=== PATIENT | female | born 1945 | race Hispanic/Latino ===

== ENCOUNTER 2017-03-29 23:32 | Emergency (ER) | payer MEDICARE ==
[2017-03-30] MEDS ORDERED: BOOSTRIX IM ONE (00:10)
--- NOTE | 2017-03-30 00:24 | Emergency Department Report ---
ED Fall HPI - General Chief Complaint: Fall Stated Complaint: FALL Time Seen by Provider: 03/30/17 00:12 Source: patient, family, EMS Mode of arrival: Stretcher - History of Present Illness Initial Comments: Patient is 72 years old female with history of diabetes and neuropathy she presented to the ER for an evaluation of a fall that happened 3 hours ago. The patient stated that she lost her balance and fell backward and hit her head. Patient denied any loss of consciousness, no focal weakness, numbness, tingling sensation, no bowel or bladder incontinence. Patient stated that for the last few weeks she has been having generalized weakness and fatigue and lower extremity swelling. Patient denied any chest pain or shortness of breath. 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 Witnessed: yes, by family Place Fall Occurred: home Loss of Consciousness: none Prolonged Down Time?: no Symptoms Prior to Fall: none Location: head, neck Context: tripped/slipped Associated Symptoms: denies: headache, neck pain, numbness, weakness, chest paint, shortness of breath, abdominal pain, hematuria, unable to walk, lightheaded, vertigo, confusion - Related Data Allergies Allergy/AdvReac Type Severity Reaction Status Date / Time acetaminophen [From Tylenol] Allergy Unknown Unverified 03/29/17 23:48 codeine Allergy Headache Unverified 03/29/17 23:48 cortisone [Cortisone] Allergy Unknown Unverified 03/29/17 23:48 Penicillins Allergy Hives Unverified 03/29/17 23:48 ED Review of Systems ROS: Stated complaint: FALL Other details as noted in HPI Comment: All other systems reviewed and negative Constitutional: denies: chills, fever Respiratory: denies: cough, shortness of breath, SOB with exertion Cardiovascular: denies: chest pain, palpitations Gastrointestinal: denies: abdominal pain, nausea, vomiting, diarrhea, constipation Genitourinary: denies: urgency Neurological: denies: headache, weakness, numbness, paresthesias, confusion ED Past Medical Hx - Past Medical History Previous Medical History?: Yes Hx Diabetes: Yes Additional medical history: CAD, tachycardia, scoliosis, hernia, diverticulitis , gallstones, neuropathy, - Surgical History Past Surgical History?: No - Social History Smoking Status: Never Smoker Substance Use Type: Prescribed ED Physical Exam - General Limitations: Physical Limitation General appearance: alert, in no apparent distress - Head Head exam: Present: other (0.3 cm laceration to the scalp.) - ENT ENT exam: Present: normal exam, normal orophraynx, mucous membranes moist - Neck Neck exam: Present: normal inspection - Respiratory Respiratory exam: Present: normal lung sounds bilaterally. Absent: respiratory distress, wheezes, rales, rhonchi, stridor, chest wall tenderness, decreased breath sounds, prolonged expiratory - Cardiovascular Cardiovascular Exam: Present: regular rate, normal rhythm, normal heart sounds - GI/Abdominal GI/Abdominal exam: Present: soft, normal bowel sounds. Absent: distended, tenderness, guarding, rebound, rigid, organomegaly, mass, bruit, pulsatile mass , hernia - Extremities Exam Extremities exam: Present: normal inspection, full ROM, normal capillary refill - Back Exam Back exam: Present: normal inspection, full ROM. Absent: tenderness, CVA tenderness (R), CVA tenderness (L) - Neurological Exam Neurological exam: Present: alert, oriented X3, CN II-XII intact, normal gait, reflexes normal. Absent: motor sensory deficit - Skin Skin exam: Present: warm, dry, normal color ED Course Vital Signs 03/29/17 03/29/17 03/29/17 23:38 23:40 23:46 Temperature Pulse Rate 101 H 110 H 98 H Respiratory 13 18 14 Rate Blood Pressure 130/64 Blood Pressure [Left] O2 Sat by Pulse 96 Oximetry 03/29/17 03/29/17 03/29/17 23:49 23:50 23:56 Temperature 97.9 F Pulse Rate 102 H 95 H 98 H Respiratory 20 13 Rate Blood Pressure 130/60 130/64 130/64 Blood Pressure 130/60 [Left] O2 Sat by Pulse 96 97 98 Oximetry 03/30/17 03/30/17 03/30/17 00:00 00:06 00:10 Temperature Pulse Rate 92 H 93 H 92 H Respiratory 15 15 17 Rate Blood Pressure 123/54 123/54 123/54 Blood Pressure [Left] O2 Sat by Pulse 96 96 95 Oximetry 03/30/17 03/30/17 03/30/17 00:11 00:16 00:20 Temperature Pulse Rate 93 H 95 H Respiratory 20 12 17 Rate Blood Pressure 123/54 123/54 Blood Pressure [Left] O2 Sat by Pulse 96 98 96 Oximetry - Reevaluation(s) Reevaluation #1: 03/30/17 04:04 Patient stated that she is feeling much better. I recommended hospital admission for the patient but patient denied she stated that she wanted to spend [place] with her family and she would rather just take the antibiotic at home and drink more fluids. ED Medical Decision Making - Lab Data Result diagrams: 03/30/17 00:13 03/30/17 00:13 - Radiology Data Radiology results: report reviewed Referring Physician: JOSE MIGUEL MCKENZIE Patient Name: CONCHA JOSE Date of : 1945 Sex: Female Report Date: 2017-03-29 Report Status: [place] [address] Cat Scan Report Signed Patient: CONCHA JOSE MR#: [id number] : 1945 Acct:[id number] Age/Sex: 72 / F ADM Date: 03/29/17 Loc: ED Attending Dr: Ordering Physician: JOSE MIGUEL MCKENZIE DO Date of Service: 03/30/17 Procedure(s): CT head/brain wo con Accession Number(s): [id number] cc: JOSE MIGUEL MCKENZIE DO FINAL REPORT EXAM: CT HEAD/BRAIN WO CON HISTORY: Fall TECHNIQUE: Routine axial imaging was obtained of the brain without IV contrast. FINDINGS: There is age related volume loss. There is no evidence of acute stroke or hemorrhage. The ventricular system is appropriate in size and is symmetric. The visualized sinuses are clear. The mastoid air cells are well pneumatized. There is no evidence of skull fracture or scalp injury. IMPRESSION: Age related atrophy. No evidence of acute stroke or hemorrhage. Transcribed By: RB Dictated By: SUMIT GUNDERSON MD Electronically Authenticated By: SUMIT GUNDERSON MD Signed Date/Time: 03/29/172108 DD/ 08 TD/TT: 03/29/172108 Referring Physician: JOSE MIGUEL MCKENZIE Patient Name: CONCHA JOSE Date of : 1945 Sex: Female Report Date: 2017-03-29 Report Status: Finalized Findings [facility] [address] [place] [address] Cat Scan Report Signed Patient: CONCHA JOSE MR#: [id number] : 1945 Acct:[id number] Age/Sex: 72 / F ADM Date: 03/29/17 Loc: ED Attending Dr: Ordering Physician: JOSE MIGUEL MCKENZIE DO Date of Service: 03/30/17 Procedure(s): CT cervical spine wo con Accession Number(s): [id number] cc: JOSE MIGUEL MCKENZIE DO FINAL REPORT EXAM: CT CERVICAL SPINE WO CON HISTORY: Fall TECHNIQUE: Routine axial imaging was obtained of the cervical spine without IV contrast with sagittal and coronal reconstructions. FINDINGS: There is multilevel moderate to severe disc degeneration with endplate spurring throughout the cervical spine. There is no evidence of fracture. There is extensive facet arthropathy changes bilaterally with varying degrees of neural foraminal impingement. There is no evidence of fracture. The prevertebral soft tissues appear normal. There is severe arthritic changes of the C1-C2 articulation. IMPRESSION: Extensive arthritic changes as described. No evidence of acute injury. Transcribed By: RB Dictated By: SUMIT GUNDERSON MD Electronically Authenticated By: SUMIT GUNDERSON MD Signed Date/Time: 03/29/172111 DD/ 11 TD/TT: 03/29/172111 Critical care attestation.: If time is entered above; I have spent that time in minutes in the direct care of this critically ill patient, excluding procedure time. ED Disposition Clinical Impression: Fall, Dehydration, Head injury, Boil, buttock Disposition: DC-01 TO HOME OR SELFCARE Is pt being admited?: No Condition: Stable Instructions: Fall Prevention (ED), Minor Head Injury (ED), Cellulitis (ED)
[2017-03-30 00:37] LABS: Hematocrit 39.3 % (30.3-42.9); Hemoglobin 12.8 gm/dl (10.1-14.3); Mean Corpuscular HGB Conc 33 % (30-34); Mean Corpuscular Hemoglobin 29 pg (28-32); Mean Corpuscular Volume 90 fl (79-97); Platelet Count 358 K/mm3 (140-440); Red Blood Count 4.36 M/mm3 (3.65-5.03); White Blood Count 17.3 K/mm3 (4.5-11.0)
[2017-03-30] MEDS ORDERED: LEVAQUIN 500MG/100ML 500 MG/100 ML BAG IV ONE (00:57)
[2017-03-30 00:59] LABS: Anion Gap 23 mmol/L; BUN/Creatinine Ratio 32; Blood Urea Nitrogen 16 mg/dL (7-17); Calcium 9.5 mg/dL (8.4-10.2); Carbon Dioxide 24 mmol/L (22-30); Chloride 96.6 mmol/L (98-107); Creatine Kinase 672 units/L (30-135); Glucose 117 mg/dL (65-100); Potassium 3.8 mmol/L (3.6-5.0); Sodium 140 mmol/L (137-145)
--- NOTE | 2017-03-30 01:00 | XRay Report ---
FINAL REPORT EXAM: XR CHEST 1V AP HISTORY: post fall chest pain TECHNIQUE: A portable upright view of the chest was submitted. FINDINGS: The heart size and mediastinum appear normal. The lungs are clear. Pleural fluid is not seen. The bones and soft tissues do not show any acute changes. IMPRESSION: No active chest disease.
--- NOTE | 2017-03-30 01:02 | XRay Report ---
FINAL REPORT EXAM: XR PELVIS 1-2V HISTORY: post fall pelvic pain TECHNIQUE: Two AP views of the pelvis were submitted. FINDINGS: There is severe arthritic changes of both hip joints. The bony pelvic ring appears intact. The SI joints appear normal. There is multilevel disc degeneration in the lumbar spine. The soft tissues are unremarkable. IMPRESSION: Severe arthritic changes of both hip joints. No evidence of acute injury. Multilevel disc degeneration in the lumbar spine.
--- NOTE | 2017-03-30 01:12 | Cat Scan Report ---
FINAL REPORT EXAM: CT HEAD/BRAIN WO CON HISTORY: Fall TECHNIQUE: Routine axial imaging was obtained of the brain without IV contrast. FINDINGS: There is age related volume loss. There is no evidence of acute stroke or hemorrhage. The ventricular system is appropriate in size and is symmetric. The visualized sinuses are clear. The mastoid air cells are well pneumatized. There is no evidence of skull fracture or scalp injury. IMPRESSION: Age related atrophy. No evidence of acute stroke or hemorrhage.
--- NOTE | 2017-03-30 01:16 | Cat Scan Report ---
FINAL REPORT EXAM: CT CERVICAL SPINE WO CON HISTORY: Fall TECHNIQUE: Routine axial imaging was obtained of the cervical spine without IV contrast with sagittal and coronal reconstructions. FINDINGS: There is multilevel moderate to severe disc degeneration with endplate spurring throughout the cervical spine. There is no evidence of fracture. There is extensive facet arthropathy changes bilaterally with varying degrees of neural foraminal impingement. There is no evidence of fracture. The prevertebral soft tissues appear normal. There is severe arthritic changes of the C1-C2 articulation. IMPRESSION: Extensive arthritic changes as described. No evidence of acute injury.
[2017-03-30 02:40] LABS: Basophils % (Manual) 0 % (0.0-1.8); Blastocytes % (Manual) 0 %; Diff Status Complete; Eosinophils % (Manual) 0 % (0.0-4.3); Platelet Estimate Consistent w Auto; RBC Morphology Normal
[2017-03-30 03:50] LABS: Bilirubin,Urine NEG (Negative); Blood,Urine SM (Negative); Ketones,Urine 20 mg/dL (Negative); Leukocyte Esterase,Urine NEG (Negative); Mucus,Urine FEW /HPF; Nitrite,Urine NEG (Negative); Protein,Urine <15 mg/dL mg/dL (Negative); Urobilinogen,Urine < 2.0 mg/dL (<2.0)
[2017-03-30] MEDS ORDERED: NACL 0.9% 1000 ML 1,000 ML IV ONE (03:59)
[2017-03-30 06:08] VITALS: BP 118/55
== END 2017-03-30 06:10 | disposition home or self-care (01) ==
LOC: ED 23:32
DX: S01.01XA Laceration without foreign body of scalp, initial encounter (principal); E86.0 Dehydration; E11.9 Type 2 diabetes mellitus without complications; Z88.6 Allergy status to analgesic agent; Z88.0 Allergy status to penicillin; Z88.8 Allergy status to other drugs, medicaments and biological substances; W18.30XA Fall on same level, unspecified, initial encounter; Y93.89 Activity, other specified; Y92.89 Other specified places as the place of occurrence of the external cause; Y99.8 Other external cause status
CPT/HCPCS: 36415; 70450; 71010; 72125; 72170; 80048; 81001; 82550; 83880; 84484; 85007; 85025; 87040; 90471; 90715; 96361; 96365; 99285; J1956; J7030

== ENCOUNTER 2017-04-07 17:53 | Inpatient (IN) | payer MEDICARE, MEDICAID ==
[2017-04-07 19:07] LABS: Hematocrit 35.7 % (30.3-42.9); Hemoglobin 12.1 gm/dl (10.1-14.3); Mean Corpuscular HGB Conc 34 % (30-34); Mean Corpuscular Hemoglobin 30 pg (28-32); Mean Corpuscular Volume 90 fl (79-97); Platelet Count 424 K/mm3 (140-440); Red Blood Count 3.98 M/mm3 (3.65-5.03); Red Cell Distribution Width 14.2 % (13.2-15.2)
[2017-04-07 19:22] LABS: INR 1.1 (0.87-1.13); Partial Thromboplastin Time 30.2 Sec. (24.2-36.6)
[2017-04-07 19:27] LABS: Alanine Aminotransferase 11 units/L (7-56); Albumin 3.7 g/dL (3.9-5); BUN/Creatinine Ratio 24; Blood Urea Nitrogen 12 mg/dL (7-17); Calcium 9.1 mg/dL (8.4-10.2); Hemolysis Index 6
[2017-04-07] MEDS ORDERED: PERCOCET 5/325 ONE (23:03)
[2017-04-07] MEDS: PERCOCET 5/325 PO PRN (23:14)
[2017-04-08 00:14] LABS: Bacteria,Urine 1+ /HPF (Negative); Bilirubin,Urine NEG (Negative); Blood,Urine LG (Negative); Color,Urine Yellow (Yellow); Mucus,Urine FEW /HPF; Nitrite,Urine NEG (Negative); Protein,Urine <15 mg/dL mg/dL (Negative); Urobilinogen,Urine < 2.0 mg/dL (<2.0)
[2017-04-08] MEDS ORDERED: PERCOCET 5/325 PO ONE (07:38)
[2017-04-08] MEDS ORDERED: K-DUR PO ONE (07:38)
[2017-04-08 08:27] LABS: Magnesium 1.3 mg/dL (1.7-2.3)
--- NOTE | 2017-04-08 08:34 | Cat Scan Report ---
CT of the lumbar spine. History: Back and bilateral lower extremity pain and weakness. Findings: There is severe narrowing of all of the lumbar disc spaces with vacuum disc phenomenon seen at L2-3 and L3-4. The vertebral body heights are well-maintained. Extensive anterior and posterior hypertrophic changes are seen in multiple levels, most pronounced at L2-3, L3-4, and L5-S1. Coexistent disc complexes are seen at the lower 3 lumbar levels. There is severe bilateral facet joint arthropathy, most pronounced again at the lower 3 levels. Central canal stenosis and foraminal stenosis are seen at L4-5 and L5-S1. No acute findings are seen. There is no evidence of subluxation. Impression: Severe diffuse degenerative disc disease with multilevel posterior hypertrophic changes/disc complexes, facet joint arthropathy, and spinal stenosis at L4-5 and L5-S1. No acute findings are identified.
[2017-04-08] MEDS ORDERED: MAGNESIUM SULFATE 2GM/50ML 2 GM/50 ML BAG IV ONE (08:36)
--- NOTE | 2017-04-08 08:38 | Emergency Department Report ---
- General Chief complaint: Weakness Stated complaint: FALL/UNABLE TO WALK Time Seen by Provider: 04/08/17 07:02 Source: patient Mode of arrival: Wheelchair Limitations: No Limitations - History of Present Illness Initial comments: 72-year-old female with a previous medical history of diabetes, CAD, neuropathy , scoliosis, and arthritis presents with possible complaints of progressively worsening lower extremity weakness and frequent falls. Patient states both her legs have been painful from her hip down to her feet for several months and have worsened over the last 2 months. He has now gotten to the point where patient is unable to ambulate and experiencing frequent falls. [facility] [place] [facility] after a fall, generalized weakness, leg edema. Labs revealed a leukocytosis of 17,000 at that time and patient had a diagnosis of a buttock boil dehydration. Admission was recommended at that time the patient opted to go home with antibiotic prescription. Patient was given Levaquin, Suring, Lasix, and Zofran prescriptions. Patient was sent back to the ER by primary care doctor Cinda since patient has been unable to walk for a few days. DR larry requires to rule out DVT and CHF and does not feel patient can be worked up as an outpatient. At her baseline patient walks with a walker and she lives alone. No reports of fever, nausea, vomiting , or urinary incontinence Severity scale (0 -10): 8 - Related Data Previous Rx's Medication Instructions Recorded Last Taken Type Furosemide [Lasix] 20 mg PO DAILY #10 tablet 03/30/17 Unknown Rx HYDROcodone/APAP 5-325 [Suring 1 each PO Q6HR PRN #14 tablet 03/30/17 Unknown Rx 5/325] Levofloxacin [Levaquin TAB] 500 mg PO QDAY #7 tablet 03/30/17 Unknown Rx Ondansetron [Zofran Odt] 4 mg PO Q8HR PRN #14 tab.rapdis 03/30/17 Unknown Rx Allergies Allergy/AdvReac Type Severity Reaction Status Date / Time acetaminophen [From Tylenol] Allergy Unknown Unverified 03/29/17 23:48 codeine Allergy Headache Unverified 03/29/17 23:48 cortisone [Cortisone] Allergy Unknown Unverified 03/29/17 23:48 Penicillins Allergy Hives Unverified 03/29/17 23:48 ED Review of Systems ROS: Stated complaint: FALL/UNABLE TO WALK Other details as noted in HPI Comment: All other systems reviewed and negative Other: Constitutional: No fevers chills Eyes: No eye pain visual changes ENT: No ear pain or throat pain Neck: Denies pain Respiratory: Denies cough wheezing shortness of breath Cardiovascular: Denies chest pain, palpitations, syncope GI: Denies abdominal pain, nausea, vomiting, diarrhea : Denies dysuria Musculoskeletal: as per hpi Skin: Denies rash, lesions, erythema Neurologic: Denies headache, numbness Psychiatric: Denies suicidal ideation, hallucinations ED Past Medical Hx - Past Medical History Hx Diabetes: Yes Additional medical history: CAD, tachycardia, scoliosis, hernia, diverticulitis , gallstones, neuropathy, - Social History Smoking Status: Current Every Day Smoker Substance Use Type: None - Medications Home Medications: Home Medications Medication Instructions Recorded Confirmed Last Taken Type Furosemide [Lasix] 20 mg PO DAILY #10 tablet 03/30/17 Unknown Rx HYDROcodone/APAP 5-325 [Suring 1 each PO Q6HR PRN #14 tablet 03/30/17 Unknown Rx 5/325] Levofloxacin [Levaquin TAB] 500 mg PO QDAY #7 tablet 03/30/17 Unknown Rx Ondansetron [Zofran Odt] 4 mg PO Q8HR PRN #14 tab.rapdis 03/30/17 Unknown Rx ED Physical Exam - General Limitations: No Limitations - Other Other exam information: General: No limitations, patient is alert in no acute distress Head exam: Atraumatic, normocephalic Eyes exam: Normal appearance ENT: Moist mucous membrane, normal oropharynx Neck exam: Normal inspection, full range of motion, no meningismus nontender Respiratory exam: Clear to auscultation bilateral, no wheezes, rales, crackles Cardiovascular: Normal rate and rhythm, normal heart sounds Abdomen: Soft, nondistended, and nontender, with normal bowel sounds, no rebound, or guarding Extremity: No deformity. Pain with movement of lower extremities. Crepitus had left knee. Bilateral 2+ lower extremity edema Back: Normal Inspection, full range of motion, no tenderness Neurologic: Alert, oriented x3, cranial nerves intact, sensation grossly intact. Patient unable to lift either leg off the bed against gravity. Equal foot dorsiflexion. 5/5 upper extremity strength equal bilateral Psychiatric: normal affect, normal mood Skin: left medial buttock 1 cm superficial ulceration with surrounding erythema. No drainage ED Course Vital Signs 04/07/17 04/07/17 04/08/17 18:17 23:14 04:02 Temperature 98 F 98.0 F Pulse Rate 94 H 85 Respiratory 18 18 18 Rate Blood Pressure 137/62 129/47 O2 Sat by Pulse 98 98 Oximetry 04/08/17 04/08/17 04/08/17 05:09 05:15 05:30 Temperature Pulse Rate 81 76 Respiratory 14 13 Rate Blood Pressure 123/60 123/60 106/47 O2 Sat by Pulse Oximetry 04/08/17 04/08/17 04/08/17 05:45 06:00 06:15 Temperature Pulse Rate 79 78 88 Respiratory 15 17 12 Rate Blood Pressure 123/60 116/48 116/48 O2 Sat by Pulse Oximetry 04/08/17 04/08/17 04/08/17 06:30 06:45 06:50 Temperature Pulse Rate 80 87 Respiratory 15 14 16 Rate Blood Pressure 117/48 117/48 O2 Sat by Pulse 98 Oximetry 04/08/17 07:00 Temperature Pulse Rate 89 Respiratory 17 Rate Blood Pressure 137/60 O2 Sat by Pulse Oximetry - Reevaluation(s) Reevaluation #1: 04/08/17 08:52 Additional Percocet water for pain ED Medical Decision Making - Lab Data Result diagrams: 04/07/17 18:51 04/07/17 18:51 Lab Results 04/07/17 04/07/17 04/07/17 Range/Units 18:51 18:51 18:51 WBC 8.2 (4.5-11.0) K/mm3 RBC 3.98 (3.65-5.03) M/mm3 Hgb 12.1 (10.1-14.3) gm/dl Hct 35.7 (30.3-42.9) % MCV 90 (79-97) fl MCH 30 (28-32) pg MCHC 34 (30-34) % RDW 14.2 (13.2-15.2) % Plt Count 424 (140-440) K/mm3 PT 14.8 (12.2-14.9) Sec. INR 1.10 (0.87-1.13) APTT 30.2 (24.2-36.6) Sec. Sodium 140 (137-145) mmol/L Potassium 3.5 L (3.6-5.0) mmol/L Chloride 97.6 L (98-107) mmol/L Carbon Dioxide 26 (22-30) mmol/L Anion Gap 20 mmol/L BUN 12 (7-17) mg/dL Creatinine 0.5 L (0.7-1.2) mg/dL Estimated GFR > 60 ml/min BUN/Creatinine Ratio 24 % Glucose 109 H (65-100) mg/dL Calcium 9.1 (8.4-10.2) mg/dL Magnesium (1.7-2.3) mg/dL Total Bilirubin 0.40 (0.1-1.2) mg/dL AST 16 (5-40) units/L ALT 11 (7-56) units/L Alkaline Phosphatase 82 (35-129) units/L Total Creatine Kinase (30-135) units/L NT-Pro-B Natriuret Pep (0-900) pg/mL Total Protein 6.8 (6.3-8.2) g/dL Albumin 3.7 L (3.9-5) g/dL Albumin/Globulin Ratio 1.2 % TSH (0.270-4.200) mlU/mL Free T4 (0.76-1.46) ng/dL Urine Color (Yellow) Urine Turbidity (Clear) Urine pH (5.0-7.0) Ur Specific [place] (1.003-1.030) Urine Protein (Negative) mg/dL Urine Glucose (UA) (Negative) mg/dL Urine Ketones (Negative) mg/dL Urine Blood (Negative) Urine Nitrite (Negative) Urine Bilirubin (Negative) Urine Urobilinogen (<2.0) mg/dL Ur Leukocyte Esterase (Negative) Urine WBC (Auto) (0.0-6.0) /HPF Urine RBC (Auto) (0.0-6.0) /HPF U Epithel Cells (Auto) (0-13.0) /HPF Urine Bacteria (Auto) (Negative) /HPF Urine Mucus /HPF 04/07/17 04/07/17 04/08/17 Range/Units 18:51 23:44 07:51 WBC (4.5-11.0) K/mm3 RBC (3.65-5.03) M/mm3 Hgb (10.1-14.3) gm/dl Hct (30.3-42.9) % MCV (79-97) fl MCH (28-32) pg MCHC (30-34) % RDW (13.2-15.2) % Plt Count (140-440) K/mm3 PT (12.2-14.9) Sec. INR (0.87-1.13) APTT (24.2-36.6) Sec. Sodium (137-145) mmol/L Potassium (3.6-5.0) mmol/L Chloride (98-107) mmol/L Carbon Dioxide (22-30) mmol/L Anion Gap mmol/L BUN (7-17) mg/dL Creatinine (0.7-1.2) mg/dL Estimated GFR ml/min BUN/Creatinine Ratio % Glucose (65-100) mg/dL Calcium (8.4-10.2) mg/dL Magnesium 1.30 L (1.7-2.3) mg/dL Total Bilirubin (0.1-1.2) mg/dL AST (5-40) units/L ALT (7-56) units/L Alkaline Phosphatase (35-129) units/L Total Creatine Kinase 66 (30-135) units/L NT-Pro-B Natriuret Pep 53.91 (0-900) pg/mL Total Protein (6.3-8.2) g/dL Albumin (3.9-5) g/dL Albumin/Globulin Ratio % TSH (0.270-4.200) mlU/mL Free T4 (0.76-1.46) ng/dL Urine Color Yellow (Yellow) Urine Turbidity Clear (Clear) Urine pH 5.0 (5.0-7.0) Ur Specific [place] 1.013 (1.003-1.030) Urine Protein <15 mg/dl (Negative) mg/dL Urine Glucose (UA) Neg (Negative) mg/dL Urine Ketones Tr (Negative) mg/dL Urine Blood Lg (Negative) Urine Nitrite Neg (Negative) Urine Bilirubin Neg (Negative) Urine Urobilinogen < 2.0 (<2.0) mg/dL Ur Leukocyte Esterase Neg (Negative) Urine WBC (Auto) 3.0 (0.0-6.0) /HPF Urine RBC (Auto) 43.0 (0.0-6.0) /HPF U Epithel Cells (Auto) 1.0 (0-13.0) /HPF Urine Bacteria (Auto) 1+ (Negative) /HPF Urine Mucus Few /HPF 04/08/17 Range/Units 07:51 WBC (4.5-11.0) K/mm3 RBC (3.65-5.03) M/mm3 Hgb (10.1-14.3) gm/dl Hct (30.3-42.9) % MCV (79-97) fl MCH (28-32) pg MCHC (30-34) % RDW (13.2-15.2) % Plt Count (140-440) K/mm3 PT (12.2-14.9) Sec. INR (0.87-1.13) APTT (24.2-36.6) Sec. Sodium (137-145) mmol/L Potassium (3.6-5.0) mmol/L Chloride (98-107) mmol/L Carbon Dioxide (22-30) mmol/L Anion Gap mmol/L BUN (7-17) mg/dL Creatinine (0.7-1.2) mg/dL Estimated GFR ml/min BUN/Creatinine Ratio % Glucose (65-100) mg/dL Calcium (8.4-10.2) mg/dL Magnesium (1.7-2.3) mg/dL Total Bilirubin (0.1-1.2) mg/dL AST (5-40) units/L ALT (7-56) units/L Alkaline Phosphatase (35-129) units/L Total Creatine Kinase (30-135) units/L NT-Pro-B Natriuret Pep (0-900) pg/mL Total Protein (6.3-8.2) g/dL Albumin (3.9-5) g/dL Albumin/Globulin Ratio % TSH 0.767 (0.270-4.200) mlU/mL Free T4 1.62 H (0.76-1.46) ng/dL Urine Color (Yellow) Urine Turbidity (Clear) Urine pH (5.0-7.0) Ur Specific [place] (1.003-1.030) Urine Protein (Negative) mg/dL Urine Glucose (UA) (Negative) mg/dL Urine Ketones (Negative) mg/dL Urine Blood (Negative) Urine Nitrite (Negative) Urine Bilirubin (Negative) Urine Urobilinogen (<2.0) mg/dL Ur Leukocyte Esterase (Negative) Urine WBC (Auto) (0.0-6.0) /HPF Urine RBC (Auto) (0.0-6.0) /HPF U Epithel Cells (Auto) (0-13.0) /HPF Urine Bacteria (Auto) (Negative) /HPF Urine Mucus /HPF - Radiology Data Radiology results: report reviewed CT lumbar spine: Severe diffuse degenerative disc disease with multilevel posterior hypertrophic changes/disc complexes. Facet joint arthropathy and spinal stenosis at L4-5 and L5-S1. No acute findings are identified Doppler bilateral extremities: Negative for DVT - Medical Decision Making Potassium, Percocet, and IV magnesium ordered in the ED Patient lives she has a left buttock cellulitis has been on Levaquin. pt states she accidentally cut the skin with her nail. No leukocytosis, fever, or signs of sepsis Bactrim ordered for cellulitis - Differential Diagnosis arthritis, neuropathy, radiculopathy, infection, anemia Critical Care Time: No Critical care attestation.: If time is entered above; I have spent that time in minutes in the direct care of this critically ill patient, excluding procedure time. ED Disposition Clinical Impression: Bilateral leg weakness, Bilateral leg edema, Diabetes, Cellulitis of buttock, left, Decubitus ulcer, buttock, Hypokalemia, Hypomagnesemia, Inability to walk, Hematuria Disposition: OP ADMIT IP TO THIS HOSP Is pt being admited?: Yes Condition: Stable Time of Disposition: 08:56
[2017-04-08 08:40] LABS: Free T4 (Free Thyroxine) 1.62 ng/dL (0.76-1.46)
[2017-04-08] MEDS ORDERED: BACTRIM DS PO ONE (08:55)
[2017-04-08] MEDS ORDERED: VITAMIN D3 PO SCH (13:30)
[2017-04-08] MEDS ORDERED: D50W (25GM) Syringe IV PRN (13:32)
--- NOTE | 2017-04-08 13:45 | History and Physical Report ---
History of Present Illness Date of examination: 04/08/17 Chief complaint: Unable to walk History of present illness: Patient is a 72-year-old woman who lives at home alone with history of type 2 diabetes mellitus with peripheral neuropathy, coronary artery disease, arthritis , vitamin D deficiency, osteoarthritis, scoliosis and hypertension who presents to the emergency department with inability to walk over last 1 week this can progressively worse with low back pain. Patient has been repeatedly fallen without any prodromal symptoms. Patient has been having bilateral leg edema for about 3 weeks. per ED documentation: Patient was seen here [facility] after a fall, generalized weakness, leg edema. Labs revealed a leukocytosis of 17,000 at that time and patient had a diagnosis of a buttock boil and dehydration. Admission was recommended at that time the patient opted to go home with antibiotic prescription. Patient was given Levaquin, [place], Lasix, and Zofran prescriptions. Patient was sent back to the ER by primary care doctor Cinda since patient has been unable to walk for a few days. DR larry requires to rule out DVT and CHF and does not feel patient can be worked up as an outpatient. At her baseline, patient walks with a walker and she lives alone. No reports of fever, nausea, vomiting, or urinary incontinence. PMH/PSH: msk surgery SH: she denies tobacco, alcohol, illegal drug FH: hypertension ROS: Constitutional: general malaise Ears, nose, mouth and throat: no deferred, no ear pain, no decreased hearing, no sinus pressure, no bleeding gums, no dental pain, no mouth pain, no hoarseness, no sore throat, no swelling in mouth, no post-nasal drip, no headache, no vertigo, no pain front of neck, no neck lump Cardiovascular: chest pain, lightheadedness, decreased exercise tolerance, no orthopnea, no palpitations, no rapid/irregular heart beat, no edema, no syncope , no shortness of breath, no dyspnea on exertion, no paroxysmal nocturnal dyspnea, no claudication, no phlebitis, no high blood pressure, no leg edema Respiratory: no cough with sputum, no excessive sputum, no hemoptysis, no pleurisy, no pain, no pain on inspiration, no respiratory infections, no other Gastrointestinal: no nausea, no diarrhea, no constipation, no hematemesis, no hematochezia, no loss of appetite, no early satiety, no indigestion, no dyspepsia/bloating Genitourinary : no flank pain, no discharge, no urinary hesitancy, no nocturia Rectal: no incontinence, no bleeding, no itching, no discharge Musculoskeletal:+neck stiffness, no shooting arm pain, no arm numbness/tingling , no shooting leg pain, no leg numbness/tingling, no atrophy, no limitation of motion, no fractures, no loss of height, no prior amputations, no arthritis Integumentary: no depigmentation, no dryness, no unusual bruising Neurological: + weakness, no tingling, no syncope, no vertigo, no migraines, no aphasia, no change in mentation, no changes in smell/taste, +balance difficulties, no double vision, no burning pain, no paralysis Psychiatric: hypersomnia, change in libido, irritability, no anxiety, no memory loss, no sleep disturbances, no change in appetite, no disorientation, no hallucinations, no paranoia, no hopelessness, no anxiety attacks, no confusion Endocrine: + high blood sugars, fatigue Hematologic/Lymphatic: +leg edema, no easy bruising, no lymphedema Allergic/Immunologic: no urticaria, no allergic rhinitis, no anaphylaxis Medications and Allergies Allergies Allergy/AdvReac Type Severity Reaction Status Date / Time acetaminophen [From Tylenol] Allergy Unknown Unverified 03/29/17 23:48 codeine Allergy Headache Unverified 03/29/17 23:48 cortisone [Cortisone] Allergy Unknown Unverified 03/29/17 23:48 Penicillins Allergy Hives Unverified 03/29/17 23:48 Home Medications Medication Instructions Recorded Confirmed Last Taken Type Carvedilol [Coreg] 6.25 mg PO BID 04/08/17 04/08/17 04/07/17 History Cholecalciferol (Vitamin D3) 1,000 unit PO DAILY 04/08/17 04/08/17 04/07/17 History [Vitamin D3] Diltiazem HCl [Diltiazem 24Hr ER] 240 mg PO QDAY 04/08/17 04/08/17 04/07/17 History Metformin HCl [Glucophage] 500 mg PO BID 04/08/17 04/08/17 04/07/17 History [place]-3/Dha/Epa/Fish Oil [Fish Oil 2 cap PO BID 04/08/17 04/08/17 04/07/17 History 1,000 mg Softgel] Active Meds: Active Medications Carvedilol (Coreg) 6.25 mg PO BID MOOSE Cholecalciferol (Vitamin D3) 1,000 unit PO QDAY MOOSE Dextrose (D50w (25gm) Syringe) 50 ml IV PRN PRN PRN Reason: Hypoglycemia Diltiazem HCl (Cardizem Cd) 240 mg PO QDAY MOOSE Enoxaparin Sodium (Lovenox) 40 mg SUB-Q QDAY MOOSE Fish Oil (Fish Oil) 2,000 mg PO BID MOOSE Insulin Aspart (Novolog) 0 units SUB-Q ACHS MOOSE PRN Reason: Protocol Metformin HCl (Glucophage) 500 mg PO BID MOOSE Oxycodone/Acetaminophen (Percocet 5/325) 1 tab PO Q6H PRN PRN Reason: Pain, Moderate (4-6) Last Admin: 04/07/17 23:14 Dose: 1 tab Exam - Physical Exam Narrative exam: GEN: WDWN, NAD, AWAKE, ALERT, ORIENTATED x 3 HEENT: NCAT, EOMI, PERRL, OP Clear NECK: lrom, no adenopathy, no thyromegaly, no JVD CVS/HEART: RRR, NORMAL S1S2, NO JVD, pulses present bilaterally CHEST/LUNGS: CTA B, Symmetrical chest expansion, good air entry bilaterally GI/Abdomen: soft, NTND, good bowel sounds, no guarding or rebound /Bladder: no suprapubic tenderness, no CVA or paraspinal tenderness EXT/Skin: bilateral pitting leg edema, MSK: FROM x 4 Neuro: CN 2-12 grossly intact, no new focal deficits Psych: calm - Constitutional Vitals: Temp Pulse Resp BP Pulse Ox 98.0 F 84 13 110/52 98 04/08/17 04:02 04/08/17 11:30 04/08/17 11:30 04/08/17 11:30 04/08/17 06:50 Results - Labs CBC & Chem 7: 04/07/17 18:51 04/07/17 18:51 Labs: Abnormal lab results 04/07/17 04/08/17 04/08/17 Range/Units 18:51 07:51 07:51 Potassium 3.5 L (3.6-5.0) mmol/L Chloride 97.6 L (98-107) mmol/L Creatinine 0.5 L (0.7-1.2) mg/dL Glucose 109 H (65-100) mg/dL Magnesium 1.30 L (1.7-2.3) mg/dL Albumin 3.7 L (3.9-5) g/dL Free T4 1.62 H (0.76-1.46) ng/dL Assessment and Plan Patient is a 72-year-old woman who lives at home alone with history of type 2 diabetes mellitus with peripheral neuropathy, coronary artery disease, arthritis , vitamin D deficiency, osteoarthritis, scoliosis and hypertension who presents to the emergency department with inability to walk and leg edema Venous leg Doppler negative for DVT CT Lumbar sacral spine reported no acute findings Urinalysis negative for UTI -Inability to ambulate: Consult PT, questionable placement -Bilateral leg edema rule out CHF: Pro BnP, troponins, chest x-ray and echocardiogram -Uncontrolled diabetes mellitus: Sliding scale -Sacral decubitus ulcer: consult wound care -DVT prophylaxis: sq lovenox -GI prophylaxis: protonix
[2017-04-08 13:53] LABS: Bilirubin,Urine NEG (Negative); Blood,Urine SM (Negative); Color,Urine Straw (Yellow); Mucus,Urine FEW /HPF; Nitrite,Urine NEG (Negative); Protein,Urine <15 mg/dL mg/dL (Negative); Urobilinogen,Urine < 2.0 mg/dL (<2.0); WBC,Urine < 1.0 /HPF (0.0-6.0)
--- NOTE | 2017-04-08 15:46 | XRay Report ---
AP chest x-ray. History: Shortness of breath. The heart and ulnar vessels are normal. The lungs are clear. There is no pleural fluid. There has been no interval change since the study on March 30, 2017. Impression: No acute findings.
[2017-04-08] MEDS: PERCOCET 5/325 PO PRN (16:59)
[2017-04-08] MEDS: NOVOLOG SUB-Q SCH ×2 (17:00→22:40)
[2017-04-08] MEDS: PROTONIX PO SCH (17:00)
[2017-04-08] MEDS: COREG PO SCH ×2 (17:00→22:35)
[2017-04-08 21:10] LABS: Creatine Kinase MB 2.7 ng/mL (0.0-4.0)
[2017-04-08] MEDS ORDERED: FISH OIL PO SCH (22:00)
[2017-04-08] MEDS ORDERED: OMEGA PO SCH (22:00)
[2017-04-08] MEDS ORDERED: EPA PO SCH (22:00)
[2017-04-08] MEDS ORDERED: DHA PO SCH (22:00)
[2017-04-08] MEDS ORDERED: AMBIEN PO PRN (22:00)
[2017-04-08] MEDS: FISH OIL PO SCH (22:34)
[2017-04-08] MEDS: GLUCOPHAGE PO SCH (22:35)
[2017-04-09 01:23] LABS: Creatine Kinase MB 2.3 ng/mL (0.0-4.0)
[2017-04-09] MEDS: PERCOCET 5/325 PO PRN ×3 (02:08→17:23)
[2017-04-09 03:59] LABS: Hematocrit 34.3 % (30.3-42.9); Hemoglobin 11.7 gm/dl (10.1-14.3); Mean Corpuscular HGB Conc 34 % (30-34); Mean Corpuscular Hemoglobin 31 pg (28-32); Mean Corpuscular Volume 89 fl (79-97); Platelet Count 412 K/mm3 (140-440); Red Blood Count 3.84 M/mm3 (3.65-5.03); Red Cell Distribution Width 14.4 % (13.2-15.2)
[2017-04-09 04:14] LABS: BUN/Creatinine Ratio 20; Blood Urea Nitrogen 10 mg/dL (7-17); Calcium 8.4 mg/dL (8.4-10.2); Hemolysis Index 8
[2017-04-09] MEDS: NOVOLOG SUB-Q SCH ×4 (08:01→22:18)
--- NOTE | 2017-04-09 08:45 | Vascular Lab Report ---
LOWER EXTREMITY VENOUS DUPLEX: REASON FOR EXAM: Swelling of the lower extremities. COMMENTS ON THE RIGHT: All veins visualized are freely compressible without evidence of internal echogenicity. Flow is spontaneous and phasic throughout. COMMENTS ON THE LEFT: All veins visualized are freely compressible without evidence of internal echogenicity. Flow is spontaneous and phasic throughout. IMPRESSION: No evidence of acute or chronic deep venous thrombosis in either lower extremity.
[2017-04-09] MEDS: VITAMIN D3 PO SCH (09:01)
[2017-04-09] MEDS: FISH OIL PO SCH ×2 (09:01→22:19)
[2017-04-09] MEDS: PROTONIX PO SCH (09:02)
[2017-04-09] MEDS: COREG PO SCH ×2 (09:02→22:17)
[2017-04-09] MEDS: GLUCOPHAGE PO SCH ×2 (09:02→22:20)
[2017-04-09] MEDS: LOVENOX SUB-Q SCH (09:03)
[2017-04-09] MEDS ORDERED: NON-FORMULARY (Cholecalciferol (Vitamin D3) [Vitamin D3] 1,000 UNIT) PO SCH (10:00)
[2017-04-09] MEDS ORDERED: CARDIZEM CD PO SCH (10:00)
--- NOTE | 2017-04-09 16:05 | Progress Note ---
Assessment and Plan Assessment and plan: Patient is a 72-year-old woman who lives at home alone with history of type 2 diabetes mellitus with peripheral neuropathy, coronary artery disease, arthritis , vitamin D deficiency, osteoarthritis, scoliosis and hypertension who presents to the emergency department with inability to walk and leg edema Venous leg Doppler negative for DVT CT Lumbar sacral spine reported no acute findings Urinalysis negative for UTI -Inability to ambulate with recurrent falls, most likely related to Osteoarthritis +/- Osteoporosis: Consult PT, questionable placement -Bilateral leg edema ruled out CHF, most likely due to venous insufficiency -Uncontrolled diabetes mellitus: Sliding scale -Sacral decubitus ulcer: consult wound care -DVT prophylaxis: sq lovenox -GI prophylaxis: protonix 04/08/2017 TTE reported a left ventricular chamber size is normal, estimated EF is 55-60%, normal ventricular diastolic filling is observed, atrial chamber size normal, right ventricular chamber size normal, right ventricular global systolic function is normal, trace TR, no evidence of AR, , MS, MR, [place], PS and no pericardial effusion 04/09/17: Needs JUNE, d/w case management I called and d/w pcp, Dr. Alfaro Hospitalist Physical - Constitutional Vitals: Temp Pulse Resp BP Pulse Ox 98.0 F 86 18 112/55 96 04/09/17 13:50 04/09/17 09:02 04/09/17 13:50 04/09/17 13:50 04/09/17 06:05 Results - Labs CBC & Chem 7: 04/09/17 03:21 04/09/17 03:21 Labs: Laboratory Last Values WBC 7.1 K/mm3 (4.5-11.0) 04/09/17 03:21 RBC 3.84 M/mm3 (3.65-5.03) 04/09/17 03:21 Hgb 11.7 gm/dl (10.1-14.3) 04/09/17 03:21 Hct 34.3 % (30.3-42.9) 04/09/17 03:21 MCV 89 fl (79-97) 04/09/17 03:21 MCH 31 pg (28-32) 04/09/17 03:21 MCHC 34 % (30-34) 04/09/17 03:21 RDW 14.4 % (13.2-15.2) 04/09/17 03:21 Plt Count 412 K/mm3 (140-440) 04/09/17 03:21 PT 14.8 Sec. (12.2-14.9) 04/07/17 18:51 INR 1.10 (0.87-1.13) 04/07/17 18:51 APTT 30.2 Sec. (24.2-36.6) 04/07/17 18:51 Sodium 140 mmol/L (137-145) 04/09/17 03:21 Potassium 3.9 mmol/L (3.6-5.0) 04/09/17 03:21 Chloride 98.5 mmol/L (98-107) 04/09/17 03:21 Carbon Dioxide 27 mmol/L (22-30) 04/09/17 03:21 Anion Gap 18 mmol/L 04/09/17 03:21 BUN 10 mg/dL (7-17) 04/09/17 03:21 Creatinine 0.5 mg/dL (0.7-1.2) L 04/09/17 03:21 Estimated GFR > 60 ml/min 04/09/17 03:21 BUN/Creatinine Ratio 20 % 04/09/17 03:21 Glucose 98 mg/dL (65-100) 04/09/17 03:21 POC Glucose 226 (70-105) H 04/09/17 11:17 Calcium 8.4 mg/dL (8.4-10.2) 04/09/17 03:21 Magnesium 1.50 mg/dL (1.7-2.3) L 04/09/17 03:21 Total Bilirubin 0.40 mg/dL (0.1-1.2) 04/07/17 18:51 AST 16 units/L (5-40) 04/07/17 18:51 ALT 11 units/L (7-56) 04/07/17 18:51 Alkaline Phosphatase 82 units/L (35-129) 04/07/17 18:51 Total Creatine Kinase 51 units/L (30-135) 04/09/17 00:20 CK-MB (CK-2) 2.3 ng/mL (0.0-4.0) 04/09/17 00:20 CK-MB (CK-2) Rel Index 4.5 (0-4) H 04/09/17 00:20 Troponin T < 0.010 ng/mL (0.00-0.029) 04/09/17 00:20 NT-Pro-B Natriuret Pep 93.36 pg/mL (0-900) 04/08/17 07:51 Total Protein 6.8 g/dL (6.3-8.2) 04/07/17 18:51 Albumin 3.7 g/dL (3.9-5) L 04/07/17 18:51 Albumin/Globulin Ratio 1.2 % 04/07/17 18:51 TSH 0.767 mlU/mL (0.270-4.200) 04/08/17 07:51 Free T4 1.62 ng/dL (0.76-1.46) H 04/08/17 07:51 Urine Color Straw (Yellow) 04/08/17 12:36 Urine Turbidity Clear (Clear) 04/08/17 12:36 Urine pH 5.0 (5.0-7.0) 04/08/17 12:36 Ur Specific [place] 1.009 (1.003-1.030) 04/08/17 12:36 Urine Protein <15 mg/dl mg/dL (Negative) 04/08/17 12:36 Urine Glucose (UA) Neg mg/dL (Negative) 04/08/17 12:36 Urine Ketones Neg mg/dL (Negative) 04/08/17 12:36 Urine Blood Sm (Negative) 04/08/17 12:36 Urine Nitrite Neg (Negative) 04/08/17 12:36 Urine Bilirubin Neg (Negative) 04/08/17 12:36 Urine Urobilinogen < 2.0 mg/dL (<2.0) 04/08/17 12:36 Ur Leukocyte Esterase Neg (Negative) 04/08/17 12:36 Urine WBC (Auto) < 1.0 /HPF (0.0-6.0) 04/08/17 12:36 Urine RBC (Auto) 4.0 /HPF (0.0-6.0) 04/08/17 12:36 U Epithel Cells (Auto) < 1.0 /HPF (0-13.0) 04/08/17 12:36 Urine Bacteria (Auto) 1+ /HPF (Negative) 04/07/17 23:44 Urine Mucus Few /HPF 04/08/17 12:36
[2017-04-10] MEDS: PERCOCET 5/325 PO PRN ×2 (01:25→15:57)
[2017-04-10] MEDS: REGLAN IV PRN ×2 (05:29→15:56)
[2017-04-10] MEDS: NOVOLOG SUB-Q SCH ×3 (07:54→17:13)
[2017-04-10] MEDS ORDERED: MAGNESIUM SULFATE 2GM/50ML 2 GM/50 ML BAG IV ONE (08:07)
[2017-04-10] MEDS: VITAMIN D3 PO SCH (09:50)
[2017-04-10] MEDS: GLUCOPHAGE PO SCH (09:50)
[2017-04-10] MEDS: COREG PO SCH (09:51)
[2017-04-10] MEDS: PROTONIX PO SCH (09:54)
[2017-04-10] MEDS: LOVENOX SUB-Q SCH (09:54)
[2017-04-10] MEDS: FISH OIL PO SCH (09:54)
--- NOTE | 2017-04-10 12:59 | Progress Note ---
Assessment and Plan Assessment and plan: Patient is a 72-year-old woman who lives at home alone with history of type 2 diabetes mellitus with peripheral neuropathy, coronary artery disease, arthritis , vitamin D deficiency, osteoarthritis, scoliosis and hypertension who presents to the emergency department with inability to walk and leg edema Venous leg Doppler negative for DVT CT of the lumbar spine reported severe diffuse degenerative disc disease with multilevel posterior hypertrophic changes/disc complexes, facet joint arthropathy, and spinal stenosis at L4-L5 and L5-S1, no acute findings are identified Urinalysis negative for UTI -Inability to ambulate with recurrent falls, most likely related to Osteoarthritis +/- Osteoporosis: Consult PT, questionable placement -Bilateral leg edema ruled out CHF, most likely due to venous insufficiency -Uncontrolled diabetes mellitus: Sliding scale -Sacral decubitus ulcer: consult wound care -DVT prophylaxis: sq lovenox -GI prophylaxis: protonix 04/08/2017 TTE reported a left ventricular chamber size is normal, estimated EF is 55-60%, normal ventricular diastolic filling is observed, atrial chamber size normal, right ventricular chamber size normal, right ventricular global systolic function is normal, trace TR, no evidence of AR, , MS, MR, [place], PS and no pericardial effusion 04/09/17: Needs JUNE, d/w case management I called and d/w pcp, Dr. Alfaro 04/10/17: continue PT, awaiting placement tomorrow, [facility] History Interval history: Patient was seen and examined. Follow-up on current diagnosis. Overnight uneventful. Patient denies any chest pain, shortness breath, nausea/vomiting or severe headaches. Imaging, nursing note, chart, labs and old chart reviewed. Discussed with patient. Hospitalist Physical - Physical exam Narrative exam: GEN: WDWN, NAD, AWAKE, ALERT, ORIENTATED x 3 HEENT: NCAT, EOMI, PERRL, OP Clear NECK: lrom, no adenopathy, no thyromegaly, no JVD CVS/HEART: RRR, NORMAL S1S2, NO JVD, pulses present bilaterally CHEST/LUNGS: CTA B, Symmetrical chest expansion, good air entry bilaterally GI/Abdomen: soft, NTND, good bowel sounds, no guarding or rebound /Bladder: no suprapubic tenderness, no CVA or paraspinal tenderness EXT/Skin: bilateral pitting leg edema, MSK: FROM x 4 Neuro: CN 2-12 grossly intact, no new focal deficits Psych: calm - Constitutional Vitals: Temp Pulse Resp BP Pulse Ox 99.3 F 81 20 130/51 95 04/10/17 07:33 04/10/17 09:51 04/10/17 07:33 04/10/17 09:51 04/10/17 04:02 Results - Labs CBC & Chem 7: 04/09/17 03:21 04/09/17 03:21 Labs: Laboratory Last Values WBC 7.1 K/mm3 (4.5-11.0) 04/09/17 03:21 RBC 3.84 M/mm3 (3.65-5.03) 04/09/17 03:21 Hgb 11.7 gm/dl (10.1-14.3) 04/09/17 03:21 Hct 34.3 % (30.3-42.9) 04/09/17 03:21 MCV 89 fl (79-97) 04/09/17 03:21 MCH 31 pg (28-32) 04/09/17 03:21 MCHC 34 % (30-34) 04/09/17 03:21 RDW 14.4 % (13.2-15.2) 04/09/17 03:21 Plt Count 412 K/mm3 (140-440) 04/09/17 03:21 PT 14.8 Sec. (12.2-14.9) 04/07/17 18:51 INR 1.10 (0.87-1.13) 04/07/17 18:51 APTT 30.2 Sec. (24.2-36.6) 04/07/17 18:51 Sodium 140 mmol/L (137-145) 04/09/17 03:21 Potassium 3.9 mmol/L (3.6-5.0) 04/09/17 03:21 Chloride 98.5 mmol/L (98-107) 04/09/17 03:21 Carbon Dioxide 27 mmol/L (22-30) 04/09/17 03:21 Anion Gap 18 mmol/L 04/09/17 03:21 BUN 10 mg/dL (7-17) 04/09/17 03:21 Creatinine 0.5 mg/dL (0.7-1.2) L 04/09/17 03:21 Estimated GFR > 60 ml/min 04/09/17 03:21 BUN/Creatinine Ratio 20 % 04/09/17 03:21 Glucose 98 mg/dL (65-100) 04/09/17 03:21 POC Glucose 130 (70-105) H 04/10/17 11:24 Calcium 8.4 mg/dL (8.4-10.2) 04/09/17 03:21 Magnesium 1.50 mg/dL (1.7-2.3) L 04/09/17 03:21 Total Bilirubin 0.40 mg/dL (0.1-1.2) 04/07/17 18:51 AST 16 units/L (5-40) 04/07/17 18:51 ALT 11 units/L (7-56) 04/07/17 18:51 Alkaline Phosphatase 82 units/L (35-129) 04/07/17 18:51 Total Creatine Kinase 51 units/L (30-135) 04/09/17 00:20 CK-MB (CK-2) 2.3 ng/mL (0.0-4.0) 04/09/17 00:20 CK-MB (CK-2) Rel Index 4.5 (0-4) H 04/09/17 00:20 Troponin T < 0.010 ng/mL (0.00-0.029) 04/09/17 00:20 NT-Pro-B Natriuret Pep 93.36 pg/mL (0-900) 04/08/17 07:51 Total Protein 6.8 g/dL (6.3-8.2) 04/07/17 18:51 Albumin 3.7 g/dL (3.9-5) L 04/07/17 18:51 Albumin/Globulin Ratio 1.2 % 04/07/17 18:51 TSH 0.767 mlU/mL (0.270-4.200) 04/08/17 07:51 Free T4 1.62 ng/dL (0.76-1.46) H 04/08/17 07:51 Urine Color Straw (Yellow) 04/08/17 12:36 Urine Turbidity Clear (Clear) 04/08/17 12:36 Urine pH 5.0 (5.0-7.0) 04/08/17 12:36 Ur Specific [place] 1.009 (1.003-1.030) 04/08/17 12:36 Urine Protein <15 mg/dl mg/dL (Negative) 04/08/17 12:36 Urine Glucose (UA) Neg mg/dL (Negative) 04/08/17 12:36 Urine Ketones Neg mg/dL (Negative) 04/08/17 12:36 Urine Blood Sm (Negative) 04/08/17 12:36 Urine Nitrite Neg (Negative) 04/08/17 12:36 Urine Bilirubin Neg (Negative) 04/08/17 12:36 Urine Urobilinogen < 2.0 mg/dL (<2.0) 04/08/17 12:36 Ur Leukocyte Esterase Neg (Negative) 04/08/17 12:36 Urine WBC (Auto) < 1.0 /HPF (0.0-6.0) 04/08/17 12:36 Urine RBC (Auto) 4.0 /HPF (0.0-6.0) 04/08/17 12:36 U Epithel Cells (Auto) < 1.0 /HPF (0-13.0) 04/08/17 12:36 Urine Bacteria (Auto) 1+ /HPF (Negative) 04/07/17 23:44 Urine Mucus Few /HPF 04/08/17 12:36
[2017-04-10 15:00] VITALS: BP 141/59
--- NOTE | 2017-04-10 15:16 | Discharge Summary ---
Providers - Providers Date of Admission: 04/08/17 13:06 Date of discharge: 04/10/17 Attending physician: COLETTE MONTENEGRO 04/08/17 13:30 Consult to Case Management [CONS] Routine Services Needed at Discharge: Physical Therapy Occupational Therapy Supervisor [employer] Notified:: jacky Occupational Therapy Evaluate and Treat [CONS] Routine Comment: Reason For Exam: help with adl, placement? Physical Therapy Evaluation and Treat [CONS] Routine Comment: Reason For Exam: unable to walk, placement? 04/08/17 13:34 Consult to Wound/ET Nurse [CONS] Routine Reason For Exam: wound eval Primary care physician: DESEAN FOUNTAIN Hospitalization Condition: Stable Hospital course: Patient is a 72-year-old woman who lives at home alone with history of type 2 diabetes mellitus with peripheral neuropathy, coronary artery disease, arthritis , vitamin D deficiency, osteoarthritis, scoliosis and hypertension who presents to the emergency department with inability to walk and leg edema Venous leg Doppler negative for DVT CT of the lumbar spine reported severe diffuse degenerative disc disease with multilevel posterior hypertrophic changes/disc complexes, facet joint arthropathy, and spinal stenosis at L4-L5 and L5-S1, no acute findings are identified Urinalysis negative for UTI -Inability to ambulate with recurrent falls, most likely related to Osteoarthritis +/- Osteoporosis: Consult PT, questionable placement -Bilateral leg edema ruled out CHF, most likely due to venous insufficiency -Uncontrolled diabetes mellitus: Sliding scale -Sacral decubitus ulcer: consult wound care -DVT prophylaxis: sq lovenox -GI prophylaxis: protonix 04/08/2017 TTE reported a left ventricular chamber size is normal, estimated EF is 55-60%, normal ventricular diastolic filling is observed, atrial chamber size normal, right ventricular chamber size normal, right ventricular global systolic function is normal, trace TR, no evidence of AR, , MS, MR, [place], PS and no pericardial effusion 04/09/17: Needs JUNE, d/w case management I called and d/w pcp, Dr. Alfaro 04/10/17: continue PT, awaiting placement [facility] Disposition: DC/[place]-03 [facility] Time spent for discharge: 35 minutes Core Measure Documentation - Palliative Care Palliative Care/ Comfort Measures: Not Applicable - Core Measures Any of the following diagnoses?: none - VTE Discharge Requirements Deep Vein Thrombosis/Pulmonary Embolism Present on Admission: No Has pt received <5 days of overlap therapy or INR<2.0: No Anticoagulant overlap therapy prescribed at discharge: No Contraindication No Overlap Therapy order at DC: Not Indicated Exam - Physical Exam Narrative exam: GEN: WDWN, NAD, AWAKE, ALERT, ORIENTATED x 3 HEENT: NCAT, EOMI, PERRL, OP Clear NECK: lrom, no adenopathy, no thyromegaly, no JVD CVS/HEART: RRR, NORMAL S1S2, NO JVD, pulses present bilaterally CHEST/LUNGS: CTA B, Symmetrical chest expansion, good air entry bilaterally GI/Abdomen: soft, NTND, good bowel sounds, no guarding or rebound /Bladder: no suprapubic tenderness, no CVA or paraspinal tenderness EXT/Skin: bilateral pitting leg edema, MSK: FROM x 4 Neuro: CN 2-12 grossly intact, no new focal deficits Psych: calm - Constitutional Vitals: Temp Pulse Resp BP Pulse Ox 122.0 F H 94 H 20 141/59 95 04/10/17 14:53 04/10/17 14:53 04/10/17 14:53 04/10/17 14:53 04/10/17 14:53 Plan Follow up with: DESEAN FOUNTAIN MD [Primary Care Provider] - 7 Days
== END 2017-04-10 20:54 | DRG 553 ==
LOC: ED 17:53 → 3A 04-08 13:06 → 2B-ACE 04-08 14:17
PROVIDERS: ADMIT Internal Medicine; ATTEND Internal Medicine
DX: M19.90 Unspecified osteoarthritis, unspecified site (principal); L89.323 Pressure ulcer of left buttock, stage 3; M51.36 Other intervertebral disc degeneration, lumbar region; M81.0 Age-related osteoporosis without current pathological fracture; I25.10 Atherosclerotic heart disease of native coronary artery without angina pectoris; F17.200 Nicotine dependence, unspecified, uncomplicated; Z60.2 Problems related to living alone; E11.42 Type 2 diabetes mellitus with diabetic polyneuropathy; I10 Essential (primary) hypertension; Z82.49 Family history of ischemic heart disease and other diseases of the circulatory system; Z91.81 History of falling; Z88.1 Allergy status to other antibiotic agents; Z88.5 Allergy status to narcotic agent; Z88.0 Allergy status to penicillin; Z88.8 Allergy status to other drugs, medicaments and biological substances; Z79.84 Long term (current) use of oral hypoglycemic drugs; E11.65 Type 2 diabetes mellitus with hyperglycemia; I87.2 Venous insufficiency (chronic) (peripheral)
CPT/HCPCS: 36415; 71045; 72131; 80048; 80053; 81001; 82550; 82553; 82962; 83735; 83880; 84439; 84443; 84484; 85027; 85610; 85730; 93005; 93010; 93306; 93970; 96374; 99285; G8978-GP; G8979-GP; J1650; J1815; J2765; J3475

== ENCOUNTER 2017-07-30 10:40 | Outpatient (CLI) | payer MEDICARE ==
--- NOTE | 2017-07-30 11:23 | Cat Scan Report ---
CT HEAD WITHOUT CONTRAST: HISTORY: Pain, headache. TECHNIQUE: Sequential CT images without contrast. FINDINGS: Images obtained show bilateral prominence of the sulci and ventricles. There are no abnormal intra- or extra-axial blood or fluid collections. There are no focal masses or evidence of mass effect. The gamble white matter differentiation appears within normal limits. Regions of periventricular decreased attenuation are consistent with microangiopathic ischemic disease. The posterior fossa structures including the fourth ventricle, cerebellum, and brainstem appear normal. IMPRESSION: Evidence of atrophy and microangiopathic ischemic disease. No acute intracranial process noted. No change is appreciated since 03/30/17.
== END 2017-07-30 10:41 | disposition home or self-care (01) ==
LOC: CT 10:40
PROVIDERS: ATTEND Internal Medicine
DX: G31.9 Degenerative disease of nervous system, unspecified (principal); I99.8 Other disorder of circulatory system
CPT/HCPCS: 70450

== ENCOUNTER 2021-01-22 19:20 | Inpatient (IN) | payer MEDICARE, MEDICAID ==
[~2021-01-22 19:20] MED LIST: ATROPINE 0.1% (1 MG/10 ML) CARDIAC SYRINGE ONE; CALCIUM CHLORIDE 1,000 MG/10 ML SYRINGE IV ONE; EPINEPHrine 1 MG/10 ML SYRINGE ONE; SODIUM BICARB 8.4% 50 MEQ/50 ML SYRINGE IV ONE
[2021-01-22] MEDS ORDERED: NORepinephrine/NS 4 MG-250 ML 4 MG/250 ML BAG IV ONE (19:40)
[2021-01-22] MEDS ORDERED: SODIUM CHLORIDE 0.9% 1000 ML 1,000 ML IV ONE ×2 (19:42→21:15)
[2021-01-22] MEDS ORDERED: MINERAL OIL/PETROLATUM, WHITE OPHTH OINT 3.5 GM OU PRN (19:43)
[2021-01-22] MEDS ORDERED: LIP THERAPY VASELINE TP PRN (19:43)
--- NOTE | 2021-01-22 19:55 | Emergency Department Report ---
HPI - General Time Seen by Provider: 01/22/21 19:42 - HPI HPI: 76-year-old female presents to the emergency department via EMS from home in cardiac arrest. Information is obtained from EMS, as well as from the patient's daughter who later arrived in the emergency department. Patient has a past medical history of diabetes and hypertension. She is not vaccinated agai nst COVID-19. Apparently the patient has been complaining of some generalized abdominal pain over the past 2 days. This afternoon she had told her daughter that her abdominal had improved. However, this evening she told her aide that she was having shortness of breath and they called for EMS. In the meantime a gave her a sublingual nitroglycerin. When EMS arrived the patient suddenly collapsed and went into cardiac arrest. They intubated the patient and began providing bag valve ventilation and chest compressions as part of ACLS protocol. She had 4 rounds of epinephrine. She was mostly in PEA but had one transient episode of V. fib for which she received a defibrillation. EMS also said that the patient had a very brief ROSC just before arriving to the emergency department. ED Past Medical Hx - Past Medical History Hx Diabetes: Yes Hx Arthritis: Yes Additional medical history: CAD, tachycardia, scoliosis, hernia, diverticulitis, gallstones, neuropathy, - Social History Smoking Status: Never Smoker - Medications Home Medications: Home Medications Medication Instructions Recorded Confirmed Last Taken Type Carvedilol [Coreg] 6.25 mg PO BID 04/08/17 01/23/21 04/07/17 History Cholecalciferol (Vitamin D3) 1,000 unit PO DAILY 04/08/17 01/23/21 04/07/17 History [Vitamin D3] Metformin HCl [Glucophage] 500 mg PO BID 04/08/17 01/23/21 04/07/17 History Delmar-3/Dha/Epa/Fish Oil [Fish Oil 2 cap PO BID 04/08/17 01/23/21 04/07/17 History 1,000 mg Softgel] Cetirizine HCl [All Day Allergy 10 mg PO PRN PRN 01/23/21 01/23/21 Unknown History Relief] Folic Acid [Folvite] 1 mg PO QDAY 01/23/21 01/23/21 Unknown History Lisinopril [Zestril TAB] 2.5 mg PO QDAY 01/23/21 01/23/21 Unknown History Mecobalamin [B12 Active] 1,000 mcg PO QDAY 01/23/21 01/23/21 Unknown History Omeprazole 20 mg PO QDAY 01/23/21 01/23/21 Unknown History Red Yeast Rice 600 mg PO BID 01/23/21 01/23/21 Unknown History dilTIAZem HCL [Tiadylt ER] 240 mg PO QDAY 01/23/21 01/23/21 Unknown History traMADoL [Ultram] 50 mg PO Q6HR PRN 01/23/21 01/23/21 Unknown History ED Review of Systems ROS: Stated complaint: CARDIAC ARREST Other details as noted in HPI Comment: Unobtainable due to pts medical conditions Physical Exam - Physical Exam Physical Exam: GENERAL: Patient is ill-appearing and unresponsive. HENT: Normocephalic. Atraumatic. Endotracheal tube in place. EYES: Pupils are fixed and dilated. NECK: Supple. Trachea appears midline. CHEST/LUNGS: There are no spontaneous respirations. HEART/CARDIOVASCULAR: There are no spontaneous heart sounds. ABDOMEN: Abdomen is soft. There is no abdominal distention. SKIN: Skin is cool but dry. NEURO: Unresponsive. Does not withdraw to painful stimuli. Does not follow any commands. MUSCULOSKELETAL: There is no obvious deformity. There is no evidence of acute injury. No palpable femoral or radial pulses. - ABG Interpretation Ph: 7.54 PCO2: 20 PO2: 183 Bicarbonate: 17 Interpretation: respiratory alkalosis - Central Line Placement Right Femoral Consent Obtained: emergent situation Patient Placed on Monitor/Pulse Ox: Yes MD Prep: mask, gown, gloves Central Line Prep: Chlorhexidine scrub Ultrasound Used for Placement: No Central Line Lumen Inserted: triple Bloods Obtained for Lab: Yes Central Line Position: good blood return, all ports aspirated, flus, sutured in place with nyl Dressing Applied: Tegaderm, sterile gauze/tape Complications: arterial puncture/cannula (There was an arterial puncture, but no dilation. Pressure held, bleeding stopped, and no obvious hematoma) ED Medical Decision Making - Lab Data Result diagrams: 01/23/21 07:58 01/23/21 07:58 Lab Results 01/22/21 01/22/21 01/22/21 Range/Units 20:25 20:25 20:25 WBC 28.8 H (4.5-11.0) K/mm3 RBC 3.46 L (3.65-5.03) M/mm3 Hgb 9.0 L (10.1-14.3) gm/dl Hct 29.1 L (30.3-42.9) % MCV 84 (79-97) fl MCH 26 L (28-32) pg MCHC 31 (30-34) % RDW 18.2 H (13.2-15.2) % Plt Count 359 (140-440) K/mm3 Add Manual Diff Complete Total Counted 100 Seg Neutrophils % Metal Polisher Seg Neuts % (Manual) 66.0 (40.0-70.0) % Band Neutrophils % 23.0 % Lymphocytes % (Manual) 3.0 L (13.4-35.0) % Monocytes % (Manual) 3.0 (0.0-7.3) % Eosinophils % (Manual) 1.0 (0.0-4.3) % Metamyelocytes % 3.0 % Myelocytes % 1.0 % Nucleated RBC % Not Reportable Seg Neutrophils # Man 19.0 H (1.8-7.7) K/mm3 Band Neutrophils # 6.6 K/mm3 Lymphocytes # (Manual) 0.9 L (1.2-5.4) K/mm3 Abs React Lymphs (Man) 95.6 K/mm3 Monocytes # (Manual) 0.9 H (0.0-0.8) K/mm3 Eosinophils # (Manual) 0.3 (0.0-0.4) K/mm3 Basophils # (Manual) 95.6 H (0.0-0.1) K/mm3 Metamyelocytes # 0.9 K/mm3 Myelocytes # 0.3 K/mm3 Promyelocytes # 95.6 K/mm3 Blast Cells # 95.6 K/mm3 WBC Morphology Not Reportable Hypersegmented Neuts Not Reportable Hyposegmented Neuts Not Reportable Hypogranular Neuts Not Reportable Smudge Cells Not Reportable Toxic Granulation Not Reportable Toxic Vacuolation Not Reportable Dohle Bodies Not Reportable Pelger-Huet Anomaly Not Reportable Tamika Rods Not Reportable Platelet Estimate Consistent w auto Clumped Platelets Not Reportable Plt Clumps, EDTA Not Reportable Large Platelets Not Reportable Giant Platelets Not Reportable Platelet Satelliting Not Reportable Plt Morphology Comment Not Reportable RBC Morphology Not Reportable Dimorphic RBCs Not Reportable Polychromasia Not Reportable Hypochromasia 2+ Poikilocytosis Not Reportable Anisocytosis 2+ Microcytosis 1+ Macrocytosis Few Spherocytes Not Reportable Pappenheimer Bodies Not Reportable Sickle Cells Not Reportable Target Cells Not Reportable Tear Drop Cells Not Reportable Ovalocytes Not Reportable Helmet Cells Not Reportable [place] Bodies Not Reportable Norco Rings Not Reportable [place] Cells Not Reportable Bite Cells Not Reportable Crenated Cell Not Reportable Elliptocytes Not Reportable Acanthocytes (Spur) Not Reportable Rouleaux Not Reportable Hemoglobin C Crystals Not Reportable Schistocytes Not Reportable Malaria parasites Not Reportable David Bodies Not Reportable Hem Pathologist Commnt No PT 15.1 H (12.2-14.9) Sec. INR 1.07 (0.87-1.13) APTT 29.0 (24.2-36.6) Sec. D-Dimer 7238.51 H (0-234) ng/mlDDU ABG pH (7.350-7.450) pH Units ABG pCO2 mm Hg ABG pO2 (80.0-90.0) mm Hg ABG HCO3 (20.0-26.0) mmol/L ABG O2 Saturation (95.0-99.0) % ABG O2 Content (0.0-44) ABG Base Excess (-2.0-3.0) mmol/L ABG Hemoglobin (12.0-16.0) gm/dl ABG Carboxyhemoglobin (0.0-5.0) % ABG Methemoglobin (0.0-1.5) % VBG pH (7.320-7.420) Oxyhemoglobin (95.0-99.0) % FiO2 % Sodium 130 L (137-145) mmol/L Potassium 6.2 H* (3.6-5.0) mmol/L Chloride 91.5 L (98-107) mmol/L Carbon Dioxide 19 L (22-30) mmol/L Anion Gap 26 mmol/L BUN 27 H (7-17) mg/dL Creatinine 1.0 (0.6-1.2) mg/dL Estimated GFR 54 ml/min BUN/Creatinine Ratio 27 % Glucose 369 H (65-100) mg/dL POC Glucose (70-105) mg/dL Lactic Acid (0.7-2.0) mmol/L Calcium 8.8 (8.4-10.2) mg/dL Ferritin (10.0-200.0) ng/mL Total Bilirubin 0.40 (0.1-1.2) mg/dL AST 156 H (5-40) units/L ALT 67 H (7-56) units/L Alkaline Phosphatase 120 (35-129) units/L Lactate Dehydrogenase (91-180) units/L Troponin T < 0.010 (0.00-0.029) ng/mL C-Reactive Protein (0.00-1.30) mg/dL NT-Pro-B Natriuret Pep (0-900) pg/mL Total Protein 5.7 L (6.3-8.2) g/dL Albumin 2.8 L (3.9-5) g/dL Albumin/Globulin Ratio 1.0 % TSH (0.270-4.200) mlU/mL Plasma/Serum Alcohol (0-0.07) % 01/22/21 01/22/21 01/22/21 Range/Units 20:25 20:25 20:25 WBC (4.5-11.0) K/mm3 RBC (3.65-5.03) M/mm3 Hgb (10.1-14.3) gm/dl Hct (30.3-42.9) % MCV (79-97) fl MCH (28-32) pg MCHC (30-34) % RDW (13.2-15.2) % Plt Count (140-440) K/mm3 Add Manual Diff Total Counted Seg Neutrophils % Seg Neuts % (Manual) (40.0-70.0) % Band Neutrophils % % Lymphocytes % (Manual) (13.4-35.0) % Monocytes % (Manual) (0.0-7.3) % Eosinophils % (Manual) (0.0-4.3) % Metamyelocytes % % Myelocytes % % Nucleated RBC % Seg Neutrophils # Man (1.8-7.7) K/mm3 Band Neutrophils # K/mm3 Lymphocytes # (Manual) (1.2-5.4) K/mm3 Abs React Lymphs (Man) K/mm3 Monocytes # (Manual) (0.0-0.8) K/mm3 Eosinophils # (Manual) (0.0-0.4) K/mm3 Basophils # (Manual) (0.0-0.1) K/mm3 Metamyelocytes # K/mm3 Myelocytes # K/mm3 Promyelocytes # K/mm3 Blast Cells # K/mm3 WBC Morphology Hypersegmented Neuts Hyposegmented Neuts Hypogranular Neuts Smudge Cells Toxic Granulation Toxic Vacuolation Dohle Bodies Pelger-Huet Anomaly Tamika Rods Platelet Estimate Clumped Platelets Plt Clumps, EDTA Large Platelets Giant Platelets Platelet Satelliting Plt Morphology Comment RBC Morphology Dimorphic RBCs Polychromasia Hypochromasia Poikilocytosis Anisocytosis Microcytosis Macrocytosis Spherocytes Pappenheimer Bodies Sickle Cells Target Cells Tear Drop Cells Ovalocytes Helmet Cells [place] Bodies Norco Rings [place] Cells Bite Cells Crenated Cell Elliptocytes Acanthocytes (Spur) Rouleaux Hemoglobin C Crystals Schistocytes Malaria parasites David Bodies Hem Pathologist Commnt PT (12.2-14.9) Sec. INR (0.87-1.13) APTT (24.2-36.6) Sec. D-Dimer (0-234) ng/mlDDU ABG pH (7.350-7.450) pH Units ABG pCO2 mm Hg ABG pO2 (80.0-90.0) mm Hg ABG HCO3 (20.0-26.0) mmol/L ABG O2 Saturation (95.0-99.0) % ABG O2 Content (0.0-44) ABG Base Excess (-2.0-3.0) mmol/L ABG Hemoglobin (12.0-16.0) gm/dl ABG Carboxyhemoglobin (0.0-5.0) % ABG Methemoglobin (0.0-1.5) % VBG pH (7.320-7.420) Oxyhemoglobin (95.0-99.0) % FiO2 % Sodium (137-145) mmol/L Potassium (3.6-5.0) mmol/L Chloride (98-107) mmol/L Carbon Dioxide (22-30) mmol/L Anion Gap mmol/L BUN (7-17) mg/dL Creatinine (0.6-1.2) mg/dL Estimated GFR ml/min BUN/Creatinine Ratio % Glucose (65-100) mg/dL POC Glucose (70-105) mg/dL Lactic Acid 9.70 H* (0.7-2.0) mmol/L Calcium (8.4-10.2) mg/dL Ferritin (10.0-200.0) ng/mL Total Bilirubin (0.1-1.2) mg/dL AST (5-40) units/L ALT (7-56) units/L Alkaline Phosphatase (35-129) units/L Lactate Dehydrogenase (91-180) units/L Troponin T (0.00-0.029) ng/mL C-Reactive Protein (0.00-1.30) mg/dL NT-Pro-B Natriuret Pep (0-900) pg/mL Total Protein (6.3-8.2) g/dL Albumin (3.9-5) g/dL Albumin/Globulin Ratio % TSH 2.380 (0.270-4.200) mlU/mL Plasma/Serum Alcohol < 0.01 (0-0.07) % 01/22/21 01/22/21 01/22/21 Range/Units 20:25 20:25 20:25 WBC (4.5-11.0) K/mm3 RBC (3.65-5.03) M/mm3 Hgb (10.1-14.3) gm/dl Hct (30.3-42.9) % MCV (79-97) fl MCH (28-32) pg MCHC (30-34) % RDW (13.2-15.2) % Plt Count (140-440) K/mm3 Add Manual Diff Total Counted Seg Neutrophils % Seg Neuts % (Manual) (40.0-70.0) % Band Neutrophils % % Lymphocytes % (Manual) (13.4-35.0) % Monocytes % (Manual) (0.0-7.3) % Eosinophils % (Manual) (0.0-4.3) % Metamyelocytes % % Myelocytes % % Nucleated RBC % Seg Neutrophils # Man (1.8-7.7) K/mm3 Band Neutrophils # K/mm3 Lymphocytes # (Manual) (1.2-5.4) K/mm3 Abs React Lymphs (Man) K/mm3 Monocytes # (Manual) (0.0-0.8) K/mm3 Eosinophils # (Manual) (0.0-0.4) K/mm3 Basophils # (Manual) (0.0-0.1) K/mm3 Metamyelocytes # K/mm3 Myelocytes # K/mm3 Promyelocytes # K/mm3 Blast Cells # K/mm3 WBC Morphology Hypersegmented Neuts Hyposegmented Neuts Hypogranular Neuts Smudge Cells Toxic Granulation Toxic Vacuolation Dohle Bodies Pelger-Huet Anomaly Tamika Rods Platelet Estimate Clumped Platelets Plt Clumps, EDTA Large Platelets Giant Platelets Platelet Satelliting Plt Morphology Comment RBC Morphology Dimorphic RBCs Polychromasia Hypochromasia Poikilocytosis Anisocytosis Microcytosis Macrocytosis Spherocytes Pappenheimer Bodies Sickle Cells Target Cells Tear Drop Cells Ovalocytes Helmet Cells [place] Bodies Norco Rings [place] Cells Bite Cells Crenated Cell Elliptocytes Acanthocytes (Spur) Rouleaux Hemoglobin C Crystals Schistocytes Malaria parasites David Bodies Hem Pathologist Commnt PT (12.2-14.9) Sec. INR (0.87-1.13) APTT (24.2-36.6) Sec. D-Dimer (0-234) ng/mlDDU ABG pH (7.350-7.450) pH Units ABG pCO2 mm Hg ABG pO2 (80.0-90.0) mm Hg ABG HCO3 (20.0-26.0) mmol/L ABG O2 Saturation (95.0-99.0) % ABG O2 Content (0.0-44) ABG Base Excess (-2.0-3.0) mmol/L ABG Hemoglobin (12.0-16.0) gm/dl ABG Carboxyhemoglobin (0.0-5.0) % ABG Methemoglobin (0.0-1.5) % VBG pH 7.286 L (7.320-7.420) Oxyhemoglobin (95.0-99.0) % FiO2 % Sodium (137-145) mmol/L Potassium (3.6-5.0) mmol/L Chloride (98-107) mmol/L Carbon Dioxide (22-30) mmol/L Anion Gap mmol/L BUN (7-17) mg/dL Creatinine (0.6-1.2) mg/dL Estimated GFR ml/min BUN/Creatinine Ratio % Glucose (65-100) mg/dL POC Glucose (70-105) mg/dL Lactic Acid (0.7-2.0) mmol/L Calcium (8.4-10.2) mg/dL Ferritin 38.4 (10.0-200.0) ng/mL Total Bilirubin (0.1-1.2) mg/dL AST (5-40) units/L ALT (7-56) units/L Alkaline Phosphatase (35-129) units/L Lactate Dehydrogenase (91-180) units/L Troponin T (0.00-0.029) ng/mL C-Reactive Protein (0.00-1.30) mg/dL NT-Pro-B Natriuret Pep 4440 H (0-900) pg/mL Total Protein (6.3-8.2) g/dL Albumin (3.9-5) g/dL Albumin/Globulin Ratio % TSH (0.270-4.200) mlU/mL Plasma/Serum Alcohol (0-0.07) % 01/22/21 01/22/21 01/22/21 Range/Units 20:25 21:45 23:47 WBC (4.5-11.0) K/mm3 RBC (3.65-5.03) M/mm3 Hgb (10.1-14.3) gm/dl Hct (30.3-42.9) % MCV (79-97) fl MCH (28-32) pg MCHC (30-34) % RDW (13.2-15.2) % Plt Count (140-440) K/mm3 Add Manual Diff Total Counted Seg Neutrophils % Seg Neuts % (Manual) (40.0-70.0) % Band Neutrophils % % Lymphocytes % (Manual) (13.4-35.0) % Monocytes % (Manual) (0.0-7.3) % Eosinophils % (Manual) (0.0-4.3) % Metamyelocytes % % Myelocytes % % Nucleated RBC % Seg Neutrophils # Man (1.8-7.7) K/mm3 Band Neutrophils # K/mm3 Lymphocytes # (Manual) (1.2-5.4) K/mm3 Abs React Lymphs (Man) K/mm3 Monocytes # (Manual) (0.0-0.8) K/mm3 Eosinophils # (Manual) (0.0-0.4) K/mm3 Basophils # (Manual) (0.0-0.1) K/mm3 Metamyelocytes # K/mm3 Myelocytes # K/mm3 Promyelocytes # K/mm3 Blast Cells # K/mm3 WBC Morphology Hypersegmented Neuts Hyposegmented Neuts Hypogranular Neuts Smudge Cells Toxic Granulation Toxic Vacuolation Dohle Bodies Pelger-Huet Anomaly Tamika Rods Platelet Estimate Clumped Platelets Plt Clumps, EDTA Large Platelets Giant Platelets Platelet Satelliting Plt Morphology Comment RBC Morphology Dimorphic RBCs Polychromasia Hypochromasia Poikilocytosis Anisocytosis Microcytosis Macrocytosis Spherocytes Pappenheimer Bodies Sickle Cells Target Cells Tear Drop Cells Ovalocytes Helmet Cells [place] Bodies Norco Rings [place] Cells Bite Cells Crenated Cell Elliptocytes Acanthocytes (Spur) Rouleaux Hemoglobin C Crystals Schistocytes Malaria parasites David Bodies Hem Pathologist Commnt PT (12.2-14.9) Sec. INR (0.87-1.13) APTT (24.2-36.6) Sec. D-Dimer (0-234) ng/mlDDU ABG pH 7.543 H (7.350-7.450) pH Units ABG pCO2 20.2 mm Hg ABG pO2 183.4 H (80.0-90.0) mm Hg ABG HCO3 17.0 L (20.0-26.0) mmol/L ABG O2 Saturation 99.3 H (95.0-99.0) % ABG O2 Content 14.1 (0.0-44) ABG Base Excess -4.1 L (-2.0-3.0) mmol/L ABG Hemoglobin 10.0 L (12.0-16.0) gm/dl ABG Carboxyhemoglobin 1.7 (0.0-5.0) % ABG Methemoglobin 0.4 (0.0-1.5) % VBG pH (7.320-7.420) Oxyhemoglobin 97.2 (95.0-99.0) % FiO2 100 % Sodium (137-145) mmol/L Potassium (3.6-5.0) mmol/L Chloride (98-107) mmol/L Carbon Dioxide (22-30) mmol/L Anion Gap mmol/L BUN (7-17) mg/dL Creatinine (0.6-1.2) mg/dL Estimated GFR ml/min BUN/Creatinine Ratio % Glucose (65-100) mg/dL POC Glucose 349 H (70-105) mg/dL Lactic Acid (0.7-2.0) mmol/L Calcium (8.4-10.2) mg/dL Ferritin (10.0-200.0) ng/mL Total Bilirubin (0.1-1.2) mg/dL AST (5-40) units/L ALT (7-56) units/L Alkaline Phosphatase (35-129) units/L Lactate Dehydrogenase 489 H (91-180) units/L Troponin T (0.00-0.029) ng/mL C-Reactive Protein 2.40 H (0.00-1.30) mg/dL NT-Pro-B Natriuret Pep (0-900) pg/mL Total Protein (6.3-8.2) g/dL Albumin (3.9-5) g/dL Albumin/Globulin Ratio % TSH (0.270-4.200) mlU/mL Plasma/Serum Alcohol (0-0.07) % - EKG Data -: EKG Interpreted by Mn EKG shows normal: sinus rhythm, axis, intervals, QRS complexes (Low voltage, Q waves to the anteroseptal leads), ST-T waves Rate: normal - EKG Data When compared to previous EKG there are: previous EKG unavailable Interpretation: other (Sinus rhythm at 69 bpm, normal axis, normal intervals, low voltage, Q waves to the anteroseptal leads.) - Radiology Data Radiology results: report reviewed CT HEAD WITHOUT CONTRAST INDICATION / CLINICAL INFORMATION: Altered Mental Status. TECHNIQUE: All CT scans at this location are performed using CT dose reduction for ALARA by means of automated exposure control. COMPARISON: 03/30/2017 FINDINGS: HEMORRHAGE: None. EXTRA-AXIAL SPACES: Mildly prominent likely related to cortical atrophy. VENTRICULAR SYSTEM: Normal in size and morphology for the patient's age. CEREBRAL PARENCHYMA: No significant abnorm ality. No acute territorial infarct. MIDLINE SHIFT / HERNIATION: None. CEREBELLUM / BRAINSTEM: No significant abnormality. ORBITS: Normal as visualized SOFT TISSUES: No significant abnormality. SKULL: No significant abnormality. PARANASAL SINUSES / MASTOID AIR CELLS: Opacification of the right maxillary sinus. Mucoid material within the nasopharynx. Endotracheal tube within the nasopharynx. ADDITIONAL FINDINGS: None. IMPRESSION: 1. No acute intracranial abnormality. 2. Other findings as above. CHEST 1 VIEW INDICATION: ETT placement. COMPARISON: 04/08/2017 FINDINGS: Support devices: The endotracheal tube terminates 3.1 cm superior to the luis. Heart: Within normal limits. Lungs/Pleura: Small left pleural effusion is identified. The lungs are generally clear otherwise. No pneumothorax. Additional findings: None. IMPRESSION: Adequate placement of the endotracheal tube. Small left pleural effusion. - Medical Decision Making This patient initially presented as a cardiac arrest. She did not have any sustained ROSC after 4 rounds of ACLS protocol with EMS. Shortly after arrival in our emergency department the patient appeared to have a weak and thready pulse. She once again went pulseless in PEA, but we were able to obtain ROSC after 1 further round of ACLS protocol including epinephrine, sodium bicarbonate, calcium. After ROSC I placed a central line and the patient was placed on Levophed. Levophed was then maxed out and an epinephrine drip was started. EKG did not show any morphology consistent with ST elevation myocardial infarction. Chest x-ray showed a small pleural effusion. No pneumothorax, obvious pneumonia, or widened mediastinum. Patient's labs shows a leukocytosis of 28,000, lactic acidosis of about 9, mild renal insufficiency, hyperkalemia with a potassium of 6.2, elevated BNP, elev ated D-dimer, elevated LDH and CRP, mild transaminitis, and anemia. Given the prearrival complaints of shortness of breath, the leukocytosis, and the fact that the patient is not vaccinated against COVID-19, she has been made a PUI. Blood cultures have been sent and the patient has been started on antibiotics. Patient was given Kayexalate, insulin, albuterol for the hyperkalemia. CT of the head without contrast does not show any hemorrhage, or large vessel occlusion. The patient has maintained ROSC thus far. She will be admitted to the ICU and was accepted for admission by the hospitalist, Dr Olivia. Critical Care Time: Yes Critical care time in (mins) excluding proc time.: 75 Critical care attestation.: If time is entered above; I have spent that time in minutes in the direct care of this critically ill patient, excluding procedure time. Critical care time was spent on this patient in doing her initial evaluation, brief supervision of ACLS protocol, ordering and interpretation of labs and imaging studies, titration of pressors, IV antibiotics, IVF resuscitation, multiple discussions with the patients family. Critical Care Time: 75 minutes ED Disposition Clinical Impression: Cardiac arrest, Suspected 2019 novel coronavirus infection, Hyperkalemia, Transaminitis Leukocytosis Qualifiers: Leukocytosis type: unspecified Qualified Code(s): D72.829 - Elevated white blood cell count, unspecified Acute respiratory failure Qualifiers: Respiratory failure complication: unspecified whether with hypoxia or hypercapnia Qualified Code(s): J96.00 - Acute respiratory failure, unspecified whether with hypoxia or hypercapnia Uncontrolled diabetes mellitus Qualifiers: Diabetes mellitus type: type 1 Glycemic state: with hyperglycemia Qualified Code(s): E10.65 - Type 1 diabetes mellitus with hyperglycemia Disposition: 09 ADMITTED INPATIENT Is pt being admited?: Yes Condition: Critical Time of Disposition: 00:15
[2021-01-22] MEDS: NORepinephrine/NS 4 MG-250 ML 4 MG/250 ML BAG IV SCH ×2 (20:03→22:27)
--- NOTE | 2021-01-22 20:13 | XRay Report ---
CHEST 1 VIEW INDICATION: ETT placement. COMPARISON: 04/08/2017 FINDINGS: Support devices: The endotracheal tube terminates 3.1 cm superior to the luis. Heart: Within normal limits. Lungs/Pleura: Small left pleural effusion is identified. The lungs are generally clear otherwise. No pneumothorax. Additional findings: None. IMPRESSION: Adequate placement of the endotracheal tube. Small left pleural effusion. Signer Name: Oscar Cedeno Jr, MD Signed: 01/22/2021 8:09 PM Workstation Name: [id number]
[2021-01-22 20:40] LABS: Hematocrit 29.1 % (30.3-42.9); Mean Corpuscular HGB Conc 31 % (30-34); Mean Corpuscular Volume 84 fl (79-97); Platelet Count 359 K/mm3 (140-440); Red Blood Count 3.46 M/mm3 (3.65-5.03); Red Cell Distribution Width 18.2 % (13.2-15.2)
[2021-01-22] MEDS: EPINEPHrine 1 MG/1 ML 8 MG in SODIUM CHLORIDE 0.9% 250ML 242 ML IV ONE (20:48)
[2021-01-22 20:52] LABS: INR 1.07 (0.87-1.13)
[2021-01-22 21:01] LABS: C-Reactive Protein 2.4 mg/dL (0.00-1.30)
[2021-01-22 21:05] LABS: Alanine Aminotransferase 67 units/L (7-56); Albumin 2.8 g/dL (3.9-5)
[2021-01-22] MEDS ORDERED: ALBUTEROL 2.5 MG/3 ML NEBU IH ONE (21:17)
[2021-01-22] MEDS ORDERED: SODIUM POLYSTYRENE 15 GM/60 ML ORAL LIQD PO ONE (21:17)
[2021-01-22 21:26] LABS: BUN/Creatinine Ratio 27; Blood Urea Nitrogen 27 mg/dL (7-17); Calcium 8.8 mg/dL (8.4-10.2); Hemolysis Index 6
[2021-01-22] MEDS ORDERED: INSULIN REGULAR, HUMAN 100 UNITS/1 ML IV ONE (21:30)
[2021-01-22] MEDS: FAMOTIDINE 20 MG/2 ML INJ IV SCH (21:34)
[2021-01-22 22:00] LABS: ABG Base Excess -4.1 mmol/L (-2.0-3.0); ABG Methemoglobin 0.4 % (0.0-1.5); ABG Oxygen Saturation 99.3 % (95.0-99.0); ABG PCO2 20.2 mm Hg; ABG PH 7.543 pH Units (7.350-7.450); ABG PO2 183.4 mm Hg (80.0-90.0)
[2021-01-22] MEDS: CALCIUM GLUCONATE 1,000 MG in SODIUM CHLORIDE 0.9% 100 ML IV ONE ×2 (22:27→23:22)
[2021-01-23] MEDS ORDERED: ACETAMINOPHEN 325 MG TAB PO PRN (00:26)
[2021-01-23] MEDS ORDERED: ALBUTEROL 2.5 MG/3 ML NEBU IH PRN (00:26)
[2021-01-23] MEDS ORDERED: HYDROmorphone 1 MG/1 ML INJ IV PRN (00:26)
[2021-01-23] MEDS ORDERED: ONDANSETRON 4 MG/2 ML INJ IV PRN (00:26)
[2021-01-23] MEDS ORDERED: DEXTROSE 50% IN WATER (25GM) 50 ML SYRINGE IV PRN (00:26)
[2021-01-23] MEDS ORDERED: MORPHINE 2 MG/1 ML INJ IV PRN (00:26)
--- NOTE | 2021-01-23 00:27 | Cat Scan Report ---
CT HEAD WITHOUT CONTRAST INDICATION / CLINICAL INFORMATION: Altered Mental Status. TECHNIQUE: All CT scans at this location are performed using CT dose reduction for ALARA by means of automated exposure control. COMPARISON: 03/30/2017 FINDINGS: HEMORRHAGE: None. EXTRA-AXIAL SPACES: Mildly prominent likely related to cortical atrophy. VENTRICULAR SYSTEM: Normal in size and morphology for the patient's age. CEREBRAL PARENCHYMA: No significant abnormality. No acute territorial infarct. MIDLINE SHIFT / HERNIATION: None. CEREBELLUM / BRAINSTEM: No significant abnormality. ORBITS: Normal as visualized SOFT TISSUES: No significant abnormality. SKULL: No significant abnormality. PARANASAL SINUSES / MASTOID AIR CELLS: Opacification of the right maxillary sinus. Mucoid material wi thin the nasopharynx. Endotracheal tube within the nasopharynx. ADDITIONAL FINDINGS: None. IMPRESSION: 1. No acute intracranial abnormality. 2. Other findings as above. Signer Name: García Morin DO Signed: 01/23/2021 12:22 AM Workstation Name: [id number]
[2021-01-23 00:33] LABS: Band Neutrophils # (Manual) 6.6 K/mm3; Myelocytes # (Manual) 0.3 K/mm3; Promyelocytes # (Manual) 95.6 K/mm3; Total Cells Counted 100
[2021-01-23 00:34] LABS: Anisocytosis 2+; Hypochromasia 2+; Macrocytosis Few
[2021-01-23] MEDS ORDERED: CALCIUM GLUCONATE 1,000 MG in SODIUM CHLORIDE 0.9% 100 ML IV ONE (00:34)
[2021-01-23 00:37] LABS: Platelet Estimate Consistent w Auto
[2021-01-23] MEDS ORDERED: hydrALAZINE 20 MG/1 ML INJ IV PRN (00:38)
--- NOTE | 2021-01-23 00:43 | History and Physical Report ---
History of Present Illness Date of examination: 01/23/21 Date of admission: 01/23/21 Chief complaint: Cardiac arrest History of present illness: 76-year-old female with past medical history of hypertension, diabetes, not vaccinated against COVID-19 was brought to the emergency room from home in cardiac arrest. Information is obtained from EMS, as well as from the patient's daughter who later arrived in the emergency department. Apparently the patient has been complaining of some generalized abdominal pain over the past 2 days. This afternoon she had told her daughter that her abdominal had improved. However, this evening she told her aide that she was having shortness of breath and they called for EMS. In the meantime a gave her a sublingual nitroglycerin. When EMS arrived the patient suddenly collapsed and went into cardiac arrest. They intubated the patient and began providing bag valve ventilation and chest compressions as part of ACLS protocol. She had 4 rounds of epinephrine. She was mostly in PEA but had one transient episode of V. fib for which she received a defibrillation. EMS also said that the patient had a very brief ROSC just before arriving to the emergency department. In the emergency room patient is found to have cardiac arrest acute respiratory failure. Patient potassium is 6.2, lactic acid 9.70 sodium 130, WBC 28.8 We are going to admit the patient to the ICU with a diagnosis of respiratory failure status post intubation, cardiac arrest, hyperkalemia, sepsis. We consulted critical care evaluation Med rec is done. Past History Past Medical History: arthritis, diabetes, hypertension, other (Scoliosis, hernia, heart diverticulitis, gallstone, neuropathy) Medications and Allergies Allergies Allergy/AdvReac Type Severity Reaction Status Date / Time acetaminophen [From Tylenol] Allergy Unknown Verified 04/08/17 18:08 codeine Allergy Headache Verified 04/08/17 18:08 cortisone [Cortisone] Allergy Unknown Verified 04/08/17 18:08 Penicillins Allergy Hives Verified 04/08/17 18:08 Home Medications Medication Instructions Recorded Confirmed Last Taken Type Carvedilol [Coreg] 6.25 mg PO BID 04/08/17 04/08/17 04/07/17 History Cholecalciferol (Vitamin D3) 1,000 unit PO DAILY 04/08/17 04/08/17 04/07/17 History [Vitamin D3] Metformin HCl [Glucophage] 500 mg PO BID 04/08/17 04/08/17 04/07/17 History [place]-3/Dha/Epa/Fish Oil [Fish Oil 2 cap PO BID 04/08/17 04/08/17 04/07/17 History 1,000 mg Softgel] dilTIAZem HCl [Diltiazem 24Hr ER 240 mg PO QDAY 04/08/17 04/08/17 04/07/17 History (Cd)] Active Meds: Active Medications Acetaminophen (Acetaminophen 325 Mg Tab) 650 mg PO Q6H PRN PRN Reason: Pain MILD(1-3)/Fever >100.5/SIMEON Albuterol (Albuterol 2.5 Mg/3 Ml Nebu) 2.5 mg IH Q3HRT PRN PRN Reason: Shortness Of Breath Albuterol/Ipratropium (Ipratropium/Albuterol Sulfate 3 Ml Ampul.Neb) 1 ampul IH Q6HRT [facility] Aspirin (Aspirin 81 Mg Tab Chew) 81 mg PO QDAY [facility] Atorvastatin Calcium (Atorvastatin 40 Mg Tab) 40 mg PO QHS [facility] Carvedilol (Carvedilol 6.25 Mg Tab) 6.25 mg PO BID [facility] Dexamethasone (Dexamethasone 4 Mg/Ml Vial) 6 mg IV DAILY [facility] Dextrose (Dextrose 50% In Water (25gm) 50 Ml Syringe) 50 ml IV Q30MIN PRN; Protocol PRN Reason: Hypoglycemia Diltiazem HCl (Diltiazem Cd 240 Mg Cap) 240 mg PO QDAY [facility] Famotidine (Famotidine 20 Mg/2 Ml Inj) 20 mg IV BID [facility] Last Admin: 01/22/21 21:34 Dose: 20 mg Documented by: Heparin Sodium (Porcine) (Heparin 5,000 Unit/1 Ml Vial) 5,000 unit SUB-Q Q8HR [facility] Hydralazine HCl (Hydralazine 20 Mg/1 Ml Inj) 10 mg IV Q6H PRN PRN Reason: Blood Pressure Hydromorphone HCl (Hydromorphone 1 Mg/1 Ml Inj) 0.5 mg IV Q3H PRN PRN Reason: Pain , Severe (7-10) Hydrophilic Ointment (Lip Therapy Vaseline) 1 applic TP Q2HR PRN PRN Reason: Dry Lips Epinephrine 8 mg/ Sodium (Chloride) 250 mls @ 3.75 mls/hr IV TITR ONE; Protocol Stop: 10/22/21 14:21 Last Titration: 01/22/21 22:06 Dose: 5 mcg/min, 9.375 mls/hr Documented by: Norepinephrine (Levophed Drip 4 Mg/Ns 250 Ml) 4 mg in 250 mls @ 7.5 mls/hr IV TITR MOOSE; Protocol Last Titration: 01/23/21 00:00 Dose: 28 mcg/min, 105 mls/hr Documented by: Sodium Chloride (Nacl 0.9% 1000 Ml) 1,000 mls @ 100 mls/hr IV DIRECT MOOSE Levofloxacin/Dextrose (Levaquin 750mg/150ml) 750 mg in 150 mls @ 100 mls/hr IV Q24H MOOSE; Protocol Calcium Gluconate 1,000 mg/ (Sodium Chloride) 110 mls @ 660 mls/hr IV ONCE ONE Stop: 01/23/21 00:43 Insulin Human Lispro (Insulin Lispro 100 Unit/Ml) 0 unit SUB-Q Q6HR MOOSE; Protocol Morphine Sulfate (Morphine 2 Mg/1 Ml Inj) 2 mg IV Q4H PRN PRN Reason: Pain, Moderate (4-6) Multi-Ingred Cream/Lotion/Oil/Oint (Mineral Oil/Petrolatum, White Ophth Oint 3.5 Gm) 1 applic OU Q4HR PRN PRN Reason: Dry Eye(s) Ondansetron HCl (Ondansetron 4 Mg/2 Ml Inj) 4 mg IV Q8H PRN PRN Reason: Nausea And Vomiting Senna/Docusate Sodium (Sennosides/Docusate Sodium 8.6/50 Mg Tab) 1 tab FEEDTUBE BID MOOSE Sodium Chloride (Sodium Chloride 0.9% 10 Ml Flush Syringe) 10 ml IV BID MOOSE Sodium Chloride (Sodium Chloride 0.9% 10 Ml Flush Syringe) 10 ml IV PRN PRN PRN Reason: LINE FLUSH Sodium Polystyrene Sulfonate (Sodium Polystyrene 15 Gm/60 Ml Oral Liqd) 30 gm PO Q4H MOOSE Stop: 01/23/21 05:01 Review of Systems All systems: negative Cardiovascular: syncope, lightheadedness Gastrointestinal: abdominal pain Exam - Constitutional Vitals: Temp Pulse Resp BP Pulse Ox 53 L 7 L 164/59 100 01/22/21 23:00 01/22/21 23:00 01/22/21 23:00 01/22/21 23:00 General appearance: Present: severe distress, well-nourished - EENT Eyes: Present: PERRL ENT: hearing intact, clear oral mucosa - Neck Neck: Present: supple, normal ROM - Respiratory Respiratory effort: normal Respiratory: bilateral: diminished - Cardiovascular Heart Sounds: Present: S1 & S2. Absent: rub, click - Extremities Extremities: pulses symmetrical, No edema Peripheral Pulses: within normal limits - Abdominal General gastrointestinal: Present: soft, non-tender, non-distended, normal bowel sounds Female genitourinary: Present: normal - Integumentary Integumentary: Present: clear, warm, dry - Musculoskeletal Musculoskeletal: gait normal, strength equal bilaterally - Psychiatric Psychiatric: other (Patient is status post intubation) - Neurologic Neurologic: CNII-XII intact, other (Status post intubation) HEART Score - HEART Score Troponin: Troponin T < 0.010 ng/mL (0.00-0.029) 01/22/21 20:25 Results - Labs CBC & Chem 7: 01/22/21 20:25 01/22/21 20:25 Labs: Laboratory Last Values WBC 28.8 K/mm3 (4.5-11.0) H 01/22/21 20:25 RBC 3.46 M/mm3 (3.65-5.03) L 01/22/21 20:25 Hgb 9.0 gm/dl (10.1-14.3) L 01/22/21 20:25 Hct 29.1 % (30.3-42.9) L 01/22/21 20:25 MCV 84 fl (79-97) 01/22/21 20:25 MCH 26 pg (28-32) L 01/22/21 20:25 MCHC 31 % (30-34) 01/22/21 20:25 RDW 18.2 % (13.2-15.2) H 01/22/21 20:25 Plt Count 359 K/mm3 (140-440) 01/22/21 20:25 Add Manual Diff Complete 01/22/21 20:25 Total Counted 100 01/22/21 20:25 Seg Neutrophils % Sr. Consultant 01/22/21 20:25 Seg Neuts % (Manual) 66.0 % (40.0-70.0) 01/22/21 20:25 Band Neutrophils % 23.0 % 01/22/21 20:25 Lymphocytes % (Manual) 3.0 % (13.4-35.0) L 01/22/21 20:25 Monocytes % (Manual) 3.0 % (0.0-7.3) 01/22/21 20:25 Eosinophils % (Manual) 1.0 % (0.0-4.3) 01/22/21 20:25 Metamyelocytes % 3.0 % 01/22/21 20:25 Myelocytes % 1.0 % 01/22/21 20:25 Nucleated RBC % Not Reportable 01/22/21 20:25 Seg Neutrophils # Man 19.0 K/mm3 (1.8-7.7) H 01/22/21 20:25 Band Neutrophils # 6.6 K/mm3 01/22/21 20:25 Lymphocytes # (Manual) 0.9 K/mm3 (1.2-5.4) L 01/22/21 20:25 Abs React Lymphs (Man) 95.6 K/mm3 01/22/21 20:25 Monocytes # (Manual) 0.9 K/mm3 (0.0-0.8) H 01/22/21 20:25 Eosinophils # (Manual) 0.3 K/mm3 (0.0-0.4) 01/22/21 20:25 Basophils # (Manual) 95.6 K/mm3 (0.0-0.1) H 01/22/21 20:25 Metamyelocytes # 0.9 K/mm3 01/22/21 20:25 Myelocytes # 0.3 K/mm3 01/22/21 20:25 Promyelocytes # 95.6 K/mm3 01/22/21 20:25 Blast Cells # 95.6 K/mm3 01/22/21 20:25 WBC Morphology Not Reportable 01/22/21 20:25 Hypersegmented Neuts Not Reportable 01/22/21 20:25 Hyposegmented Neuts Not Reportable 01/22/21 20:25 Hypogranular Neuts Not Reportable 01/22/21 20:25 Smudge Cells Not Reportable 01/22/21 20:25 Toxic Granulation Not Reportable 01/22/21 20:25 Toxic Vacuolation Not Reportable 01/22/21 20:25 Dohle Bodies Not Reportable 01/22/21 20:25 Pelger-Huet Anomaly Not Reportable 01/22/21 20:25 Tamika Rods Not Reportable 01/22/21 20:25 Platelet Estimate Consistent w auto 01/22/21 20:25 Clumped Platelets Not Reportable 01/22/21 20:25 Plt Clumps, EDTA Not Reportable 01/22/21 20:25 Large Platelets Not Reportable 01/22/21 20:25 Giant Platelets Not Reportable 01/22/21 20:25 Platelet Satelliting Not Reportable 01/22/21 20:25 Plt Morphology Comment Not Reportable 01/22/21 20:25 RBC Morphology Not Reportable 01/22/21 20:25 Dimorphic RBCs Not Reportable 01/22/21 20:25 Polychromasia Not Reportable 01/22/21 20:25 Hypochromasia 2+ 01/22/21 20:25 Poikilocytosis Not Reportable 01/22/21 20:25 Anisocytosis 2+ 01/22/21 20:25 Microcytosis 1+ 01/22/21 20:25 Macrocytosis Few 01/22/21 20:25 Spherocytes Not Reportable 01/22/21 20:25 Pappenheimer Bodies Not Reportable 01/22/21 20:25 Sickle Cells Not Reportable 01/22/21 20:25 Target Cells Not Reportable 01/22/21 20:25 Tear Drop Cells Not Reportable 01/22/21 20:25 Ovalocytes Not Reportable 01/22/21 20:25 Helmet Cells Not Reportable 01/22/21 20:25 [place] Bodies Not Reportable 01/22/21 20:25 [place] Rings Not Reportable 01/22/21 20:25 [place] Cells Not Reportable 01/22/21 20:25 Bite Cells Not Reportable 01/22/21 20:25 Crenated Cell Not Reportable 01/22/21 20:25 Elliptocytes Not Reportable 01/22/21 20:25 Acanthocytes (Spur) Not Reportable 01/22/21 20:25 Rouleaux Not Reportable 01/22/21 20:25 Hemoglobin C Crystals Not Reportable 01/22/21 20:25 Schistocytes Not Reportable 01/22/21 20:25 Malaria parasites Not Reportable 01/22/21 20:25 David Bodies Not Reportable 01/22/21 20:25 Hem Pathologist Commnt No 01/22/21 20:25 PT 15.1 Sec. (12.2-14.9) H 01/22/21 20:25 INR 1.07 (0.87-1.13) 01/22/21 20:25 APTT 29.0 Sec. (24.2-36.6) 01/22/21 20:25 D-Dimer 7238.51 ng/mlDDU (0-234) H 01/22/21 20:25 ABG pH 7.543 pH Units (7.350-7.450) H 01/22/21 21:45 ABG pCO2 20.2 mm Hg 01/22/21 21:45 ABG pO2 183.4 mm Hg (80.0-90.0) H 01/22/21 21:45 ABG HCO3 17.0 mmol/L (20.0-26.0) L 01/22/21 21:45 ABG O2 Saturation 99.3 % (95.0-99.0) H 01/22/21 21:45 ABG O2 Content 14.1 (0.0-44) 01/22/21 21:45 ABG Base Excess -4.1 mmol/L (-2.0-3.0) L 01/22/21 21:45 ABG Hemoglobin 10.0 gm/dl (12.0-16.0) L 01/22/21 21:45 ABG Carboxyhemoglobin 1.7 % (0.0-5.0) 01/22/21 21:45 ABG Methemoglobin 0.4 % (0.0-1.5) 01/22/21 21:45 VBG pH 7.286 (7.320-7.420) L 01/22/21 20:25 Oxyhemoglobin 97.2 % (95.0-99.0) 01/22/21 21:45 FiO2 100 % 01/22/21 21:45 Sodium 130 mmol/L (137-145) L 01/22/21 20:25 Potassium 6.2 mmol/L (3.6-5.0) H* 01/22/21 20:25 Chloride 91.5 mmol/L (98-107) L 01/22/21 20:25 Carbon Dioxide 19 mmol/L (22-30) L 01/22/21 20:25 Anion Gap 26 mmol/L 01/22/21 20:25 BUN 27 mg/dL (7-17) H 01/22/21 20:25 Creatinine 1.0 mg/dL (0.6-1.2) 01/22/21 20:25 Estimated GFR 54 ml/min 01/22/21 20:25 BUN/Creatinine Ratio 27 % 01/22/21 20:25 Glucose 369 mg/dL (65-100) H 01/22/21 20:25 POC Glucose 349 mg/dL (70-105) H 01/22/21 23:47 Lactic Acid 9.70 mmol/L (0.7-2.0) H* 01/22/21 20:25 Calcium 8.8 mg/dL (8.4-10.2) 01/22/21 20:25 Ferritin 38.4 ng/mL (10.0-200.0) 01/22/21 20:25 Total Bilirubin 0.40 mg/dL (0.1-1.2) 01/22/21 20:25 AST 156 units/L (5-40) H 01/22/21 20:25 ALT 67 units/L (7-56) H 01/22/21 20:25 Alkaline Phosphatase 120 units/L (35-129) 01/22/21 20:25 Lactate Dehydrogenase 489 units/L (91-180) H 01/22/21 20:25 Troponin T < 0.010 ng/mL (0.00-0.029) 01/22/21 20:25 C-Reactive Protein 2.40 mg/dL (0.00-1.30) H 01/22/21 20:25 NT-Pro-B Natriuret Pep 4440 pg/mL (0-900) H 01/22/21 20:25 Total Protein 5.7 g/dL (6.3-8.2) L 01/22/21 20:25 Albumin 2.8 g/dL (3.9-5) L 01/22/21 20:25 Albumin/Globulin Ratio 1.0 % 01/22/21 20:25 TSH 2.380 mlU/mL (0.270-4.200) 01/22/21 20:25 Plasma/Serum Alcohol < 0.01 % (0-0.07) 01/22/21 20:25 Microbiology: Microbiology 01/22/21 Unknown Peripheral/Venous Blood Culture - Preliminary Culture in Progress 01/22/21 Unknown Peripheral/Venous Blood Culture - Preliminary Culture in Progress - Imaging and Cardiology Chest x-ray: report reviewed Assessment and Plan VTE prophylaxis?: Chemical Plan of care discussed with patient/family: Yes - Patient Problems (1) Acute respiratory failure Current Visit: Yes Status: Acute Plan to address problem: Admit the patient to the ICU. N.p.o. Normal saline at the rate of 100 cc/h. DuoNeb nebulizer every 4 hours. Levaquin 750 mg IV daily. Decadron 6 mg IV daily. Reconsult pulmonary critical care evaluation. Recheck CBC BMP in the morning (2) Cardiac arrest Current Visit: Yes Status: Acute Plan to address problem: Aspirin 81 mg p.o. daily. Lipitor 40 mg p.o. daily. We do the serial cardiac enzyme. We also will do a 2D echocardiogram. Will consult cardiology for further evaluation. We will continue the home medication (3) Suspected 2019 novel coronavirus infection Current Visit: Yes Status: Acute Plan to address problem: Levaquin 750 mg IV daily. Decadron 6 mg IV daily. Reconsult pulmonary critical care evaluation. We will send the Covid PCR. We will follow the Covid inflammatory marker. We will consult infectious disease evaluation. Recheck CBC BMP in the morning (4) Hypertension Current Visit: Yes Status: Acute Plan to address problem: Hydralazine 10 mg IV every 6 hours as needed. We continue the home medication. We will monitor the patient closely (5) Leukocytosis Current Visit: Yes Status: Acute Plan to address problem: Levaquin 750 mg IV daily. We do the blood culture and sputum culture. Will consult infectious disease for evaluation. Recheck CBC in the morning (6) Hyperkalemia Current Visit: Yes Status: Acute Plan to address problem: Patient got regular insulin 6 units IV x1 dose. Patient is getting calcium gluconate 1 g x 1 dose. Kayexalate 30 g p.o. every 4 hours x2 dose. We recheck the potassium in 4 hours. If needed will consult nephrology (7) Sepsis Current Visit: Yes Status: Acute Plan to address problem: Levaquin 750 mg IV daily. We will do the blood culture in sputum culture. We will put the patient on isolation. We will consult infectious disease for evaluation and treatment. Recheck CBC in the morning (8) Acute metabolic encephalopathy Current Visit: Yes Status: Acute Plan to address problem: Multifactorial most likely from cardiac arrest respiratory failure sepsis. Patient is a status post intubation. N.p.o. normal saline at the rate of 100 cc/h. Will consult critical care evaluation. We will monitor the patient closely (9) Uncontrolled diabetes mellitus Current Visit: Yes Status: Acute Plan to address problem: We will put the patient on Humalog sliding scale moderate dose Accu-Chek every 6 hours. Will consult diabetic education. Recheck BMP in the morning (10) DVT prophylaxis Current Visit: Yes Status: Acute Plan to address problem: Heparin 5000 units subcu every 8 hours for DVT prophylaxis. Pepcid 20 mg IV every 12 hours for GI prophylaxis. Patient is a full code. Prognosis is guarded
[2021-01-23] MEDS: NORepinephrine/NS 4 MG-250 ML 4 MG/250 ML BAG IV SCH ×5 (01:05→20:23)
[2021-01-23] MEDS: SODIUM POLYSTYRENE 15 GM/60 ML ORAL LIQD PO SCH ×2 (01:34→06:19)
--- NOTE | 2021-01-23 02:04 | XRay Report ---
ABDOMEN 1 VIEW the INDICATION / CLINICAL INFORMATION: confirm placement of NG tube. COMPARISON: None available. FINDINGS: TUBES / LINES: Enteric tube terminates within the stomach. Partial visualization of endotracheal tube . BOWEL GAS PATTERN: No significant abnormality. FREE AIR / EXTRALUMINAL GAS: None seen. ADDITIONAL FINDINGS: No significant additional findings. IMPRESSION: 1. Enteric tube terminates within the stomach Signer Name: García Morin DO Signed: 01/23/2021 2:00 AM Workstation Name: [email or web address]
[2021-01-23] MEDS: IPRATROPIUM/ALBUTEROL SULFATE 3 ML AMPUL.NEB IH SCH ×3 (02:25→14:28)
[2021-01-23] MEDS: SENNOSIDES/DOCUSATE SODIUM 8.6/50 MG TAB FEEDTUBE SCH ×3 (03:21→23:06)
--- NOTE | 2021-01-23 04:24 | XRay Report ---
CHEST 1 VIEW 01/23/2021 12:53 AM INDICATION / CLINICAL INFORMATION: follow up respiratory failure. COMPARISON: 01/22/2021 FINDINGS: SUPPORT DEVICES: Stable, satisfactory device positioning. HEART / MEDIASTINUM: No significant abnormality. LUNGS / PLEURA: Redemonstrated bibasilar opacities. No pneumothorax. ADDITIONAL FINDINGS: No significant additional findings. IMPRESSION: 1. No significant change. Signer Name: García Morin DO Signed: 01/23/2021 4:19 AM Workstation Name: [email or web address]
[2021-01-23] MEDS ORDERED: SODIUM CHLORIDE 0.9% 500 ML 500 ML IV ONE (04:47)
[2021-01-23] MEDS ORDERED: fentaNYL 100 MCG/2 ML INJ IV PRN (05:49)
[2021-01-23] MEDS ORDERED: LORazepam 2 MG/ML VIAL IV ONE (05:49)
[2021-01-23] MEDS ORDERED: MIDAZOLAM 2 MG/2 ML INJ IV PRN (05:49)
[2021-01-23] MEDS ORDERED: fentaNYL DRIP Premix 2,000 MCG/100 ML BAG IV SCH (06:00)
[2021-01-23] MEDS: HEPARIN 5,000 UNIT/1 ML VIAL SUB-Q SCH ×3 (06:15→23:07)
[2021-01-23] MEDS: INSULIN LISPRO 100 UNIT/ML SUB-Q SCH ×3 (06:16→18:20)
[2021-01-23] MEDS ORDERED: MIDAZOLAM 100 MG in SODIUM CHLORIDE 0.9% 80 ML IV ONE (06:19)
[2021-01-23 08:13] LABS: Mean Corpuscular HGB Conc 30 % (30-34); Mean Corpuscular Volume 84 fl (79-97); Platelet Count 464 K/mm3 (140-440); Red Blood Count 4.23 M/mm3 (3.65-5.03)
[2021-01-23 08:14] LABS: Hematocrit 35.5 % (30.3-42.9); Hemoglobin 10.5 gm/dl (10.1-14.3)
[2021-01-23 08:33] LABS: Alanine Aminotransferase 66 units/L (7-56); Albumin 3.2 g/dL (3.9-5); BUN/Creatinine Ratio 27; Blood Urea Nitrogen 24 mg/dL (7-17); Calcium 8.7 mg/dL (8.4-10.2); Hemolysis Index 2
[2021-01-23] MEDS ORDERED: dilTIAZem CD 240 MG CAP PO SCH (10:00)
[2021-01-23] MEDS ORDERED: dexAMETHasone 4 MG/ML VIAL IV SCH (10:00)
[2021-01-23] MEDS ORDERED: carvediloL 6.25 MG TAB PO SCH (10:00)
[2021-01-23] MEDS: FAMOTIDINE 20 MG/2 ML INJ IV SCH ×2 (10:38→23:06)
[2021-01-23] MEDS: ASPIRIN 81 MG TAB CHEW PO SCH (10:38)
--- NOTE | 2021-01-23 11:07 | Electrocardiograph Report ---
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
[2021-01-23] MEDS ORDERED: SODIUM POLYSTYRENE 15 GM/60 ML ORAL LIQD PO SCH (12:00)
[2021-01-23] MEDS ORDERED: INSULIN GLARGINE 100 UNITS/ML SUB-Q SCH (12:00)
--- NOTE | 2021-01-23 12:26 | Consultation ---
History of Present Illness - Reason for Consult Consult date: 01/23/21 COVID PUI Requesting physician: TESSY SALCEDO - History of Present Illness The patient is a 76-year-old female with diabetes, hypertension admitted to the emergency room following cardiac arrest. Reportedly, she was mostly in PEA but had one transient episode of ventricular fibrillation for which she received defibrillation. Labs revealed hyperkalemia, lactic acidosis, leukocytosis. Reportedly she was complaining of some shortness of breath earlier in the day. ID consulted for Covid PUI. Afebrile Chest x-ray does not reveal any obvious pneumonia. CT head without acute abno rmality. CRP 2.4, transaminitis, ferritin 38.4. D-dimer 7238. Review of Systems: reviewed in the chart, unable to obtain, minimize risk of transmission Past History Past Medical History: arthritis, diabetes, hypertension, other (Scoliosis, hernia, heart diverticulitis, gallstone, neuropathy) Medications and Allergies Allergies Allergy/AdvReac Type Severity Reaction Status Date / Time acetaminophen [From Tylenol] Allergy Unknown Verified 01/23/21 09:30 codeine Allergy Headache Verified 01/23/21 09:30 cortisone [Cortisone] Allergy Unknown Verified 01/23/21 09:30 Penicillins Allergy Hives Verified 01/23/21 09:30 Home Medications Medication Instructions Recorded Confirmed Last Taken Type Carvedilol [Coreg] 6.25 mg PO BID 04/08/17 01/23/21 04/07/17 History Cholecalciferol (Vitamin D3) 1,000 unit PO DAILY 04/08/17 01/23/21 04/07/17 History [Vitamin D3] Metformin HCl [Glucophage] 500 mg PO BID 04/08/17 01/23/21 04/07/17 History [place]-3/Dha/Epa/Fish Oil [Fish Oil 2 cap PO BID 04/08/17 01/23/21 04/07/17 Histo ry 1,000 mg Softgel] Cetirizine HCl [All Day Allergy 10 mg PO PRN PRN 01/23/21 01/23/21 Unknown History Relief] Folic Acid [Folvite] 1 mg PO QDAY 01/23/21 01/23/21 Unknown History Lisinopril [Zestril TAB] 2.5 mg PO QDAY 01/23/21 01/23/21 Unknown History Mecobalamin [B12 Active] 1,000 mcg PO QDAY 01/23/21 01/23/21 Unknown History Omeprazole 20 mg PO QDAY 01/23/21 01/23/21 Unknown History Red Yeast Rice 600 mg PO BID 01/23/21 01/23/21 Unknown History dilTIAZem HCL [Tiadylt ER] 240 mg PO QDAY 01/23/21 01/23/21 Unknown History traMADoL [Ultram] 50 mg PO Q6HR PRN 01/23/21 01/23/21 Unknown History Active Meds: Active Medications Albuterol (Albuterol 2.5 Mg/3 Ml Nebu) 2.5 mg IH Q3HRT PRN PRN Reason: Shortness Of Breath Albuterol/Ipratropium (Ipratropium/Albuterol Sulfate 3 Ml Ampul.Neb) 1 ampul IH Q6HRT [facility] Last Admin: 01/23/21 08:40 Dose: 1 ampul Documented by: Aspirin (Aspirin 81 Mg Tab Chew) 81 mg PO QDAY [facility] Last Admin: 01/23/21 10:38 Dose: 81 mg Documented by: Atorvastatin Calcium (Atorvastatin 40 Mg Tab) 40 mg PO QHS [facility] Dexamethasone (Dexamethasone 4 Mg/Ml Vial) 6 mg IV DAILY [facility] Last Admin: 01/23/21 10:38 Dose: 6 mg Documented by: Dextrose (Dextrose 50% In Water (25gm) 50 Ml Syringe) 0 ml IV Q30MIN PRN; Protocol PRN Reason: Hypoglycemia Famotidine (Famotidine 20 Mg/2 Ml Inj) 20 mg IV BID [facility] Last Admin: 01/23/21 10:38 Dose: 20 mg Documented by: Fentanyl (Fentanyl 100 Mcg/2 Ml Inj) 50 mcg IV Q10MIN PRN PRN Reason: ANALGESIA Heparin Sodium (Porcine) (Heparin 5,000 Unit/1 Ml Vial) 5,000 unit SUB-Q Q8HR [facility] Last Admin: 01/23/21 06:15 Dose: 5,000 unit Documented by: Hydralazine HCl (Hydralazine 20 Mg/1 Ml Inj) 10 mg IV Q6H PRN PRN Reason: Blood Pressure Hydromorphone HCl (Hydromorphone 1 Mg/1 Ml Inj) 0.5 mg IV Q3H PRN PRN Reason: Pain , Severe (7-10) Last Admin: 01/23/21 05:45 Dose: 0.5 mg Documented by: Hydrophilic Ointment (Lip Therapy Vaseline) 1 applic TP Q2HR PRN PRN Reason: Dry Lips Last Admin: 01/23/21 10:39 Dose: 1 applic Documented by: Epinephrine 8 mg/ Sodium (Chloride) 250 mls @ 3.75 mls/hr IV TITR ONE; Protocol Stop: 01/25/21 14:21 Last Titration: 01/23/21 07:21 Dose: 5 mcg/min, 9.375 mls/hr Documented by: Norepinephrine (Levophed Drip 4 Mg/Ns 250 Ml) 4 mg in 250 mls @ 7.5 mls/hr IV TITR MOOSE; Protocol Last Titration: 01/23/21 09:42 Dose: 14 mcg/min, 52.5 mls/hr Documented by: Sodium Chloride (Nacl 0.9% 1000 Ml) 1,000 mls @ 100 mls/hr IV DIRECT MOOSE Levofloxacin/Dextrose (Levaquin 750mg/150ml) 750 mg in 150 mls @ 100 mls/hr IV Q24HR MOOSE; Protocol Last Admin: 01/23/21 10:38 Dose: 100 mls/hr Documented by: Fentanyl Citrate (Fentanyl Drip Premix) 2,000 mcg in 100 mls @ 4.99 mls/hr IV TITR MOOSE; Protocol Midazolam HCl 100 mg/ Sodium (Chloride) 100 mls @ 1 mls/hr IV TITR ONE; Protocol Stop: 01/27/21 10:18 Last Titration: 01/23/21 07:21 Dose: 1 mg/hr, 1 mls/hr Documented by: Insulin Glargine (Insulin Glargine 100 Units/Ml) 5 units SUB-Q DAILY MOOSE Insulin Human Lispro (Insulin Lispro 100 Unit/Ml) 0 unit SUB-Q Q6HR MOOSE; Protocol Last Admin: 01/23/21 06:16 Dose: 6 unit Documented by: Midazolam HCl (Midazolam 2 Mg/2 Ml Inj) 2 mg IV Q10MIN PRN PRN Reason: Sedation Morphine Sulfate (Morphine 2 Mg/1 Ml Inj) 2 mg IV Q4H PRN PRN Reason: Pain, Moderate (4-6) Multi-Ingred Cream/Lotion/Oil/Oint (Mineral Oil/Petrolatum, White Ophth Oint 3.5 Gm) 1 applic OU Q4HR PRN PRN Reason: Dry Eye(s) Last Admin: 01/23/21 10:39 Dose: 1 applic Documented by: Ondansetron HCl (Ondansetron 4 Mg/2 Ml Inj) 4 mg IV Q8H PRN PRN Reason: Nausea And Vomiting Senna/Docusate Sodium (Sennosides/Docusate Sodium 8.6/50 Mg Tab) 1 tab FEEDTUBE BID [facility] Last Admin: 01/23/21 10:38 Dose: 1 tab Documented by: Sodium Chloride (Sodium Chloride 0.9% 10 Ml Flush Syringe) 10 ml IV BID MOOSE Last Admin: 01/23/21 10:38 Dose: 10 ml Documented by: Sodium Chloride (Sodium Chloride 0.9% 10 Ml Flush Syringe) 10 ml IV PRN PRN PRN Reason: LINE FLUSH Sodium Polystyrene Sulfonate (Sodium Polystyrene 15 Gm/60 Ml Oral Liqd) 60 gm PO ONCE@1200 MOOSE Stop: 01/23/21 16:00 Physical Examination - Physical Exam Narrative exam: Physical Exam (reviewed in chart to minimize risk of transmission) Constitutional: deferred Head, Ears, Nose: deferred Eyes: deferred Neck: deferred Oral: deferred Cardiovascular: deferred Respiratory: deferred GI: deferred Musculoskeletal: deferred Skin: deferred Hem/Lymphatic: deferred Psych: deferred Neurological: deferred - Constitutional Vitals: Vital Signs Temp Pulse Resp BP Pulse Ox 97.9 F 73 28 H 157/59 100 01/23/21 06:52 01/23/21 10:00 01/23/21 10:00 01/23/21 10:00 01/23/21 10:00 Temperature -Last 24 Hours Temperature 97.9 F Temperature 96.3 F Results - Labs CBC & Chem 7: 01/23/21 07:58 01/23/21 07:58 Labs: Abnormal lab results 01/22/21 01/22/21 01/22/21 Range/Units 20:25 20:25 20:25 WBC 28.8 H (4.5-11.0) K/mm3 RBC 3.46 L (3.65-5.03) M/mm3 Hgb 9.0 L (10.1-14.3) gm/dl Hct 29.1 L (30.3-42.9) % MCH 26 L (28-32) pg RDW 18.2 H (13.2-15.2) % Plt Count (140-440) K/mm3 Lymphocytes % (Manual) 3.0 L (13.4-35.0) % Seg Neutrophils # Man 19.0 H (1.8-7.7) K/mm3 Lymphocytes # (Manual) 0.9 L (1.2-5.4) K/mm3 Monocytes # (Manual) 0.9 H (0.0-0.8) K/mm3 Basophils # (Manual) 95.6 H (0.0-0.1) K/mm3 PT 15.1 H (12.2-14.9) Sec. D-Dimer 7238.51 H (0-234) ng/mlDDU ABG pH (7.350-7.450) pH Units ABG pO2 (80.0-90.0) mm Hg ABG HCO3 (20.0-26.0) mmol/L ABG O2 Saturation (95.0-99.0) % ABG Base Excess (-2.0-3.0) mmol/L ABG Hemoglobin (12.0-16.0) gm/dl VBG pH (7.320-7.420) Sodium 130 L (137-145) mmol/L Potassium 6.2 H* (3.6-5.0) mmol/L Chloride 91.5 L (98-107) mmol/L Carbon Dioxide 19 L (22-30) mmol/L BUN 27 H (7-17) mg/dL Glucose 369 H (65-100) mg/dL POC Glucose (70-105) mg/dL Lactic Acid (0.7-2.0) mmol/L AST 156 H (5-40) units/L ALT 67 H (7-56) units/L Alkaline Phosphatase (35-129) units/L Lactate Dehydrogenase (91-180) units/L C-Reactive Protein (0.00-1.30) mg/dL NT-Pro-B Natriuret Pep (0-900) pg/mL Total Protein 5.7 L (6.3-8.2) g/dL Albumin 2.8 L (3.9-5) g/dL 01/22/21 01/22/21 01/22/21 Range/Units 20:25 20:25 20:25 WBC (4.5-11.0) K/mm3 RBC (3.65-5.03) M/mm3 Hgb (10.1-14.3) gm/dl Hct (30.3-42.9) % MCH (28-32) pg RDW (13.2-15.2) % Plt Count (140-440) K/mm3 Lymphocytes % (Manual) (13.4-35.0) % Seg Neutrophils # Man (1.8-7.7) K/mm3 Lymphocytes # (Manual) (1.2-5.4) K/mm3 Monocytes # (Manual) (0.0-0.8) K/mm3 Basophils # (Manual) (0.0-0.1) K/mm3 PT (12.2-14.9) Sec. D-Dimer (0-234) ng/mlDDU ABG pH (7.350-7.450) pH Units ABG pO2 (80.0-90.0) mm Hg ABG HCO3 (20.0-26.0) mmol/L ABG O2 Saturation (95.0-99.0) % ABG Base Excess (-2.0-3.0) mmol/L ABG Hemoglobin (12.0-16.0) gm/dl VBG pH 7.286 L (7.320-7.420) Sodium (137-145) mmol/L Potassium (3.6-5.0) mmol/L Chloride (98-107) mmol/L Carbon Dioxide (22-30) mmol/L BUN (7-17) mg/dL Glucose (65-100) mg/dL POC Glucose (70-105) mg/dL Lactic Acid 9.70 H* (0.7-2.0) mmol/L AST (5-40) units/L ALT (7-56) units/L Alkaline Phosphatase (35-129) units/L Lactate Dehydrogenase (91-180) units/L C-Reactive Protein (0.00-1.30) mg/dL NT-Pro-B Natriuret Pep 4440 H (0-900) pg/mL Total Protein (6.3-8.2) g/dL Albumin (3.9-5) g/dL 01/22/21 01/22/21 01/22/21 Range/Units 20:25 21:45 23:47 WBC (4.5-11.0) K/mm3 RBC (3.65-5.03) M/mm3 Hgb (10.1-14.3) gm/dl Hct (30.3-42.9) % MCH (28-32) pg RDW (13.2-15.2) % Plt Count (140-440) K/mm3 Lymphocytes % (Manual) (13.4-35.0) % Seg Neutrophils # Man (1.8-7.7) K/mm3 Lymphocytes # (Manual) (1.2-5.4) K/mm3 Monocytes # (Manual) (0.0-0.8) K/mm3 Basophils # (Manual) (0.0-0.1) K/mm3 PT (12.2-14.9) Sec. D-Dimer (0-234) ng/mlDDU ABG pH 7.543 H (7.350-7.450) pH Units ABG pO2 183.4 H (80.0-90.0) mm Hg ABG HCO3 17.0 L (20.0-26.0) mmol/L ABG O2 Saturation 99.3 H (95.0-99.0) % ABG Base Excess -4.1 L (-2.0-3.0) mmol/L ABG Hemoglobin 10.0 L (12.0-16.0) gm/dl VBG pH (7.320-7.420) Sodium (137-145) mmol/L Potassium (3.6-5.0) mmol/L Chloride (98-107) mmol/L Carbon Dioxide (22-30) mmol/L BUN (7-17) mg/dL Glucose (65-100) mg/dL POC Glucose 349 H (70-105) mg/dL Lactic Acid (0.7-2.0) mmol/L AST (5-40) units/L ALT (7-56) units/L Alkaline Phosphatase (35-129) units/L Lactate Dehydrogenase 489 H (91-180) units/L C-Reactive Protein 2.40 H (0.00-1.30) mg/dL NT-Pro-B Natriuret Pep (0-900) pg/mL Total Protein (6.3-8.2) g/dL Albumin (3.9-5) g/dL 01/23/21 01/23/21 01/23/21 Range/Units 01:10 01:49 04:00 WBC (4.5-11.0) K/mm3 RBC (3.65-5.03) M/mm3 Hgb (10.1-14.3) gm/dl Hct (30.3-42.9) % MCH (28-32) pg RDW (13.2-15.2) % Plt Count (140-440) K/mm3 Lymphocytes % (Manual) (13.4-35.0) % Seg Neutrophils # Man (1.8-7.7) K/mm3 Lymphocytes # (Manual) (1.2-5.4) K/mm3 Monocytes # (Manual) (0.0-0.8) K/mm3 Basophils # (Manual) (0.0-0.1) K/mm3 PT (12.2-14.9) Sec. D-Dimer (0-234) ng/mlDDU ABG pH (7.350-7.450) pH Units ABG pO2 (80.0-90.0) mm Hg ABG HCO3 (20.0-26.0) mmol/L ABG O2 Saturation (95.0-99.0) % ABG Base Excess (-2.0-3.0) mmol/L ABG Hemoglobin (12.0-16.0) gm/dl VBG pH (7.320-7.420) Sodium (137-145) mmol/L Potassium (3.6-5.0) mmol/L Chloride (98-107) mmol/L Carbon Dioxide (22-30) mmol/L BUN (7-17) mg/dL Glucose (65-100) mg/dL POC Glucose 323 H (70-105) mg/dL Lactic Acid 7.10 H* 9.10 H* (0.7-2.0) mmol/L AST (5-40) units/L ALT (7-56) units/L Alkaline Phosphatase (35-129) units/L Lactate Dehydrogenase (91-180) units/L C-Reactive Protein (0.00-1.30) mg/dL NT-Pro-B Natriuret Pep (0-900) pg/mL Total Protein (6.3-8.2) g/dL Albumin (3.9-5) g/dL 01/23/21 01/23/21 01/23/21 Range/Units 05:39 07:58 07:58 WBC 25.2 H (4.5-11.0) K/mm3 RBC (3.65-5.03) M/mm3 Hgb (10.1-14.3) gm/dl Hct (30.3-42.9) % MCH 25 L (28-32) pg RDW 18.0 H (13.2-15.2) % Plt Count 464 H (140-440) K/mm3 Lymphocytes % (Manual) (13.4-35.0) % Seg Neutrophils # Man (1.8-7.7) K/mm3 Lymphocytes # (Manual) (1.2-5.4) K/mm3 Monocytes # (Manual) (0.0-0.8) K/mm3 Basophils # (Manual) (0.0-0.1) K/mm3 PT (12.2-14.9) Sec. D-Dimer (0-234) ng/mlDDU ABG pH (7.350-7.450) pH Units ABG pO2 (80.0-90.0) mm Hg ABG HCO3 (20.0-26.0) mmol/L ABG O2 Saturation (95.0-99.0) % ABG Base Excess (-2.0-3.0) mmol/L ABG Hemoglobin (12.0-16.0) gm/dl VBG pH (7.320-7.420) Sodium 133 L (137-145) mmol/L Potassium 5.7 H (3.6-5.0) mmol/L Chloride 95.4 L (98-107) mmol/L Carbon Dioxide 18 L (22-30) mmol/L BUN 24 H (7-17) mg/dL Glucose 291 H (65-100) mg/dL POC Glucose 316 H (70-105) mg/dL Lactic Acid (0.7-2.0) mmol/L AST 116 H (5-40) units/L ALT 66 H (7-56) units/L Alkaline Phosphatase 136 H (35-129) units/L Lactate Dehydrogenase (91-180) units/L C-Reactive Protein (0.00-1.30) mg/dL NT-Pro-B Natriuret Pep (0-900) pg/mL Total Protein (6.3-8.2) g/dL Albumin 3.2 L (3.9-5) g/dL 01/23/21 01/23/21 01/23/21 Range/Units 07:58 10:47 11:57 WBC (4.5-11.0) K/mm3 RBC (3.65-5.03) M/mm3 Hgb (10.1-14.3) gm/dl Hct (30.3-42.9) % MCH (28-32) pg RDW (13.2-15.2) % Plt Count (140-440) K/mm3 Lymphocytes % (Manual) (13.4-35.0) % Seg Neutrophils # Man (1.8-7.7) K/mm3 Lymphocytes # (Manual) (1.2-5.4) K/mm3 Monocytes # (Manual) (0.0-0.8) K/mm3 Basophils # (Manual) (0.0-0.1) K/mm3 PT (12.2-14.9) Sec. D-Dimer (0-234) ng/mlDDU ABG pH (7.350-7.450) pH Units ABG pO2 (80.0-90.0) mm Hg ABG HCO3 (20.0-26.0) mmol/L ABG O2 Saturation (95.0-99.0) % ABG Base Excess (-2.0-3.0) mmol/L ABG Hemoglobin (12.0-16.0) gm/dl VBG pH (7.320-7.420) Sodium (137-145) mmol/L Potassium (3.6-5.0) mmol/L Chloride (98-107) mmol/L Carbon Dioxide (22-30) mmol/L BUN (7-17) mg/dL Glucose (65-100) mg/dL POC Glucose 238 H (70-105) mg/dL Lactic Acid 8.20 H* 8.00 H* (0.7-2.0) mmol/L AST (5-40) units/L ALT (7-56) units/L Alkaline Phosphatase (35-129) units/L Lactate Dehydrogenase (91-180) units/L C-Reactive Protein (0.00-1.30) mg/dL NT-Pro-B Natriuret Pep (0-900) pg/mL Total Protein (6.3-8.2) g/dL Albumin (3.9-5) g/dL - Imaging and Cardiology Chest x-ray: report reviewed, image reviewed (no obvious pneumonia) Assessment and Plan Cultures: SARS CoV2 PCR: Pending 01/22/2021 blood culture: In process A/P: 76-year-old female with diabetes, hypertension admitted to the emergency room following cardiac arrest. Reportedly, she was mostly in PEA but had one transient episode of ventricular fibrillation for which she received defibrillation: #COVID-19 PUI: Chest x-ray does not reveal any obvious pneumonia. CRP 2.4, transaminitis, ferritin 38.4. D-dimer 7238. #PEA arrest, lactic acidosis #Leucocytosis: ?reactive #Transaminitis: Likely shock liver Recs: -Low suspicion for COVID-19, steroids discontinued -f/u COVID PCR -Empiric cefepime, vancomycin for now -f/u cultures -Consider CT chest, abdomen, pelvis with contrast Tracy Orosco MD, FACP [facility] ([facility] O: [phone] F: [phone]
[2021-01-23] MEDS: CEFEPIME/NS 2 GM/100 ML 2 GM/100 ML BAG IV SCH (12:58)
[2021-01-23] MEDS ORDERED: VANCOMYCIN PHARMACY TO DOSE IV SCH (13:00)
[2021-01-23] MEDS ORDERED: VANCOMYCIN 2,000 MG in SODIUM CHLORIDE 0.9% 500 ML 500 ML IV SCH (13:30)
[2021-01-23] MEDS ORDERED: SIMPLE SYRUP 15 ML FEEDTUBE PRN ×2 (14:00)
[2021-01-23] MEDS ORDERED: SODIUM BICARBONATE 325 MG TAB FEEDTUBE PRN (14:00)
[2021-01-23] MEDS ORDERED: LIPASE 10,500/PROTEASE 25,000/AMYLASE 43,750 (UNITS) DR CAP FEEDTUBE PRN (15:00)
--- NOTE | 2021-01-23 15:57 | Event Note ---
Date: 01/23/21 Full consult to follow Out of hospital cardiac arrest. Downtime not accounted for in ED notes and also lost pulse again in ED so extremely prolonged downtime. Started on sedation. Initial head CT negative. Initial CXR negative. Abd X-ray done for tube placement. Patient had been having abdominal pain prior to this collapse but most concern focused on shortness of breath which per report is why family called EMS. COVID is negative. Significant lab abnormalities, age and abdominal pain warrants at least a CT of the ABD/PELVIS and suggest with contrast. Recs: Suggest CT of abdomen pelvis +/- contrast Stop all sedation, given prolonged downtime would be concerned about anoxic brain injury. Need to assess mental state Continue vent support Follow up EKG Consider venous dopplers of lower ext Guarded prognosis.
--- NOTE | 2021-01-23 16:03 | Event Note ---
Date: 01/23/21 COVID [address] Initial head CT negative. Initial CXR negative. Currently on Cefepime/Vancomycin, will continue for now. D/w CCM and agree to de-escalate sedation so to assess patient neuro/mental status. CTAP ordered in light of patient complaint of abd pain prior to admission. Will follow. Continue supportive management. +60 min CCT
--- NOTE | 2021-01-23 16:23 | Consultation ---
History of Present Illness Consult date: 01/23/21 Requesting physician: TESSY SALCEDO Consult reason: cardiac arrest History of present illness: 76-year-old female with a past medical history of hypertension and diabetes who was brought to the ED from home due to cardiac arrest. History is taken from the chart due to patient being intubated and sedated at time of interview. Per documentation patient was complaining of abdominal pain for the past 2 days and that last night she was also having shortness of breath. EMS arrived at patient's home was given a nitroglycerin when patient collapsed and went to cardiac arrest (PEA and V. fib) ACLS protocol was started. Patient received 4 rounds of epi and defibrillation and ROSC was achieved prior to arrival at the ED. Of note patient had leukocytosis 28.8, lactic acid 9.7, potassium 6.2 on arrival at ED. Patient is previously unknown to our practice. Cardiology is consulted for cardiac arrest Past History Past Medical History: arthritis, diabetes, hypertension, other (Scoliosis, hernia, heart diverticulitis, gallstone, neuropathy) Past Surgical History: Other (unable to obtain) Social history: other (unable to obtain) Family history: other (unable to obtain) Medications and Allergies Allergies Allergy/AdvReac Type Severity Reaction Status Date / Time acetaminophen [From Tylenol] Allergy Unknown Verified 01/23/21 09:30 codeine Allergy Headache Verified 01/23/21 09:30 cortisone [Cortisone] Allergy Unknown Verified 01/23/21 09:30 Penicillins Allergy Hives Verified 01/23/21 09:30 Home Medications Medication Instructions Recorded Confirmed Last Taken Type Carvedilol [Coreg] 6.25 mg PO BID 04/08/17 01/23/21 04/07/17 History Cholecalciferol (Vitamin D3) 1,000 unit PO DAILY 04/08/17 01/23/21 04/07/17 History [Vitamin D3] Metformin HCl [Glucophage] 500 mg PO BID 04/08/17 01/23/21 04/07/17 History [place]-3/Dha/Epa/Fish Oil [Fish Oil 2 cap PO BID 04/08/17 01/23/21 04/07/17 History 1,000 mg Softgel] Cetirizine HCl [All Day Allergy 10 mg PO PRN PRN 01/23/21 01/23/21 Unknown History Relief] Folic Acid [Folvite] 1 mg PO QDAY 01/23/21 01/23/21 Unknown History Lisinopril [Zestril TAB] 2.5 mg PO QDAY 01/23/21 01/23/21 Unknown History Mecobalamin [B12 Active] 1,000 mcg PO QDAY 01/23/21 01/23/21 Unknown History Omeprazole 20 mg PO QDAY 01/23/21 01/23/21 Unknown History Red Yeast Rice 600 mg PO BID 01/23/21 01/23/21 Unknown History dilTIAZem HCL [Tiadylt ER] 240 mg PO QDAY 01/23/21 01/23/21 Unknown History traMADoL [Ultram] 50 mg PO Q6HR PRN 01/23/21 01/23/21 Unknown History Active Meds: Active Medications Lipase/Protease/Amylase (Lipase 10,500/Protease 25,000/Amylase 43,750 (Units) Dr Mancilla) 1 each FEEDTUBE PRN PRN PRN Reason: For Clogged Feeding Tube Aspirin (Aspirin 81 Mg Tab Chew) 81 mg PO QDAY [facility] Last Admin: 01/23/21 10:38 Dose: 81 mg Documented by: Atorvastatin Calcium (Atorvastatin 40 Mg Tab) 40 mg PO QHS [facility] Dextrose (Dextrose 50% In Water (25gm) 50 Ml Syringe) 0 ml IV Q30MIN PRN; Protocol PRN Reason: Hypoglycemia Famotidine (Famotidine 20 Mg/2 Ml Inj) 20 mg IV BID [facility] Last Admin: 01/23/21 10:38 Dose: 20 mg Documented by: Heparin Sodium (Porcine) (Heparin 5,000 Unit/1 Ml Vial) 5,000 unit SUB-Q Q8HR [facility] Last Admin: 01/23/21 15:19 Dose: 5,000 unit Documented by: Hydralazine HCl (Hydralazine 20 Mg/1 Ml Inj) 10 mg IV Q6H PRN PRN Reason: Blood Pressure Hydromorphone HCl (Hydromorphone 1 Mg/1 Ml Inj) 0.5 mg IV Q3H PRN PRN Reason: Pain , Severe (7-10) Last Admin: 01/23/21 05:45 Dose: 0.5 mg Documented by: Hydrophilic Ointment (Lip Therapy Vaseline) 1 applic TP Q2HR PRN PRN Reason: Dry Lips Last Admin: 01/23/21 10:39 Dose: 1 applic Documented by: Epinephrine 8 mg/ Sodium (Chloride) 250 mls @ 3.75 mls/hr IV TITR ONE; Protocol Stop: 01/25/21 14:21 Last Titration: 01/23/21 07:21 Dose: 5 mcg/min, 9.375 mls/hr Documented by: Norepinephrine (Levophed Drip 4 Mg/Ns 250 Ml) 4 mg in 250 mls @ 7.5 mls/hr IV TITR MOOSE; Protocol Last Titration: 01/23/21 12:51 Dose: 12 mcg/min, 45 mls/hr Documented by: Sodium Chloride (Nacl 0.9% 1000 Ml) 1,000 mls @ 100 mls/hr IV DIRECT MOOSE Levofloxacin/Dextrose (Levaquin 750mg/150ml) 750 mg in 150 mls @ 100 mls/hr IV Q24HR MOOSE; Protocol Last Admin: 01/23/21 10:38 Dose: 100 mls/hr Documented by: Cefepime HCl (Cefepime/Ns 2 Gm/100 Ml) 2 gm in 100 mls @ 200 mls/hr IV Q12H MOOSE; Protocol Last Admin: 01/23/21 12:58 Dose: 200 mls/hr Documented by: Vancomycin HCl 1,500 mg/ (Sodium Chloride) 530 mls @ 333 mls/hr IV Q24H MOOSE; Protocol Vancomycin HCl 2,000 mg/ (Sodium Chloride) 540 mls @ 250 mls/hr IV ONCE@1330 MOOSE Stop: 01/23/21 17:30 Insulin Glargine (Insulin Glargine 100 Units/Ml) 5 units SUB-Q DAILY MOOSE Last Admin: 01/23/21 12:51 Dose: 5 units Documented by: Insulin Human Lispro (Insulin Lispro 100 Unit/Ml) 0 unit SUB-Q Q6HR MOOSE; Protocol Last Admin: 01/23/21 12:34 Dose: 3 unit Documented by: Morphine Sulfate (Morphine 2 Mg/1 Ml Inj) 2 mg IV Q4H PRN PRN Reason: Pain, Moderate (4-6) Multi-Ingred Cream/Lotion/Oil/Oint (Mineral Oil/Petrolatum, White Ophth Oint 3.5 Gm) 1 applic OU Q4HR PRN PRN Reason: Dry Eye(s) Last Admin: 01/23/21 10:39 Dose: 1 applic Documented by: Ondansetron HCl (Ondansetron 4 Mg/2 Ml Inj) 4 mg IV Q8H PRN PRN Reason: Nausea And Vomiting Senna/Docusate Sodium (Sennosides/Docusate Sodium 8.6/50 Mg Tab) 1 tab FEEDTUBE BID [facility] Last Admin: 01/23/21 10:38 Dose: 1 tab Documented by: Simple Syrup (Simple Syrup 15 Ml) 15 ml FEEDTUBE PRN PRN PRN Reason: Hypoglycemia Simple Syrup (Simple Syrup 15 Ml) 30 ml FEEDTUBE PRN PRN PRN Reason: Hypoglycemia Sodium Bicarbonate (Sodium Bicarbonate 325 Mg Tab) 325 mg FEEDTUBE PRN PRN PRN Reason: For Clogged Feeding Tube Sodium Chloride (Sodium Chloride 0.9% 10 Ml Flush Syringe) 10 ml IV BID [facility] Last Admin: 01/23/21 10:38 Dose: 10 ml Documented by: Sodium Chloride (Sodium Chloride 0.9% 10 Ml Flush Syringe) 10 ml IV PRN PRN PRN Reason: LINE FLUSH Review of Systems ROS unobtainable: due to endotracheal tube, due to mental status Physical Examination Vital Signs Pulse Ox 100 01/22/21 19:38 General appearance: other (intubated and sedated) HEENT: Positive: Mucus Membranes Dry Neck: Positive: trachea midline Cardiac: Positive: Reg Rate and Rhythm Neuro: Positive: Other (unable to assess) Abdomen: Positive: Soft Skin: Negative: Rash, Suspicious Lesions, Ulceration Extremities: Present: upper extr. pulses Results 01/23/21 07:58 01/23/21 07:58 Cardiac Enzymes 01/22/21 01/22/21 01/23/21 Range/Units 20:25 20:25 07:58 AST 156 H 116 H (5-40) units/L Lactate Dehydrogenase 489 H (91-180) units/L Coagulation 01/22/21 Range/Units 20:25 PT 15.1 H (12.2-14.9) Sec. INR 1.07 (0.87-1.13) APTT 29.0 (24.2-36.6) Sec. CBC 01/22/21 01/23/21 Range/Units 20:25 07:58 WBC 28.8 H 25.2 H (4.5-11.0) K/mm3 RBC 3.46 L 4.23 (3.65-5.03) M/mm3 Hgb 9.0 L 10.5 (10.1-14.3) gm/dl Hct 29.1 L 35.5 D (30.3-42.9) % Plt Count 359 464 H (140-440) K/mm3 Comprehensive Metabolic Panel 01/22/21 01/23/21 Range/Units 20:25 07:58 Sodium 130 L 133 L (137-145) mmol/L Potassium 6.2 H* 5.7 H (3.6-5.0) mmol/L Chloride 91.5 L 95.4 L (98-107) mmol/L Carbon Dioxide 19 L 18 L (22-30) mmol/L BUN 27 H 24 H (7-17) mg/dL Creatinine 1.0 0.9 (0.6-1.2) mg/dL Glucose 369 H 291 H (65-100) mg/dL Calcium 8.8 8.7 (8.4-10.2) mg/dL AST 156 H 116 H (5-40) units/L ALT 67 H 66 H (7-56) units/L Alkaline Phosphatase 120 136 H (35-129) units/L Total Protein 5.7 L 7.2 D (6.3-8.2) g/dL Albumin 2.8 L 3.2 L (3.9-5) g/dL - Imaging and Cardiology Echo: pending EKG: report reviewed EKG interpretations - Telemetry EKG Rhythm: Atrial Fibrillation - EKG Supraventricular dysrhythmia: atrial fibrillation Repolarization changes or abnormalities: nonspecific abnormality, ST segment, and/or T wave Assessment and Plan 76-year-old female with a past medical history of hypertension and diabetes who was brought to the ED from home due to cardiac arrest Cardiac Arrest * Patient currently intubated and sedated requiring pressors * EKG shows afib 69, nonspecific T abnormalities, no Acute ischemic changes. Tro ponins negative x 2 * Telemetry shows patient sinus 81 on monitor Sepsis * ID following * COVID PCR negative Acute hypoxic respiratory failure * Patient intubated and sedated Hyperkalemia * Management per primary team Plan: Echo pending. Repeat EKG. Continue present management Patient seen in conjunction with Dr. Elizabeth who agrees with this plan of care - Patient Problems (1) Acute metabolic encephalopathy Current Visit: Yes Status: Acute (2) Acute respiratory failure Current Visit: Yes Status: Acute Qualifiers: Respiratory failure complication: unspecified whether with hypoxia or hypercapnia Qualified Code(s): J96.00 - Acute respiratory failure, unspecified whether with hypoxia or hypercapnia (3) Cardiac arrest Current Visit: Yes Status: Acute (4) Hyperkalemia Current Visit: Yes Status: Acute (5) Hypertension Current Visit: Yes Status: Acute (6) Leukocytosis Current Visit: Yes Status: Acute Qualifiers: Leukocytosis type: unspecified Qualified Code(s): D72.829 - Elevated white blood cell count, unspecified (7) Sepsis Current Visit: Yes Status: Acute
[2021-01-23] MEDS: SODIUM CHLORIDE 0.9% 1000 ML 1,000 ML IV SCH (18:23)
[2021-01-23] MEDS: EPINEPHrine 1 MG/1 ML 8 MG in SODIUM CHLORIDE 0.9% 250ML 242 ML IV ONE (21:07)
--- NOTE | 2021-01-23 22:15 | Cat Scan Report ---
CT ABDOMEN AND PELVIS WITHOUT CONTRAST INDICATION / CLINICAL INFORMATION: Generalized abdominal pain. TECHNIQUE: Axial CT images were obtained through the abdomen and pelvis without IV contrast. All CT scans at [facility] location are performed using CT dose reduction for ALARA by means of automated exposure control. COMPARISON: None available. FINDINGS: LOWER CHEST: Small pleural effusions are noted with bibasilar atelectasis versus pneumonia. There is severe coronary atherosclerosis. No other significant abnormality. LIVER: No significant abnormality. GALLBLADDER: There is cholelithiasis without evidence of acute cholecystitis. BILE DUCTS: No significant abnormality. PANCREAS: No significant abnormality. SPLEEN: No significant abnormality. ADRENALS: No significant abnormality. KIDNEYS / URETERS: Mild renal parenchymal thinning is noted bilaterally. There are nonobstructive may ateral renal stones measuring up to 4.3 mm along the right upper renal pole. A probable cyst along e mid pole of the left kidney measures 1.8 cm. No other significant abnormalities. STOMACH / SMALL BOWEL: An NG tube terminates along the gastric body. No significant abnormality. COLON: No significant abnormality. APPENDIX: No significant abnormality. PERITONEUM: No free fluid. No free air. No fluid collection. LYMPH NODES: No significant adenopathy. AORTA / ARTERIES: Normal caliber of the aorta with moderate generalized atherosclerosis. IVC / VEINS: No significant abnormality. URINARY BLADDER: No significant abnormality. REPRODUCTIVE ORGANS: No significant abnormality. ADDITIONAL FINDINGS: None. BONES: No acute abnormality. The bones are demineralized with severe degenerative changes of the spin e and pelvis. IMPRESSION: 1. Bibasilar pneumonia versus atelectasis with small pleural effusions. 2. Nonobstructive bilateral renal stones. 3. Additional findings as above. Signer Name: Levy Wheeler MD Signed: 01/23/2021 10:11 PM Workstation Name: [id number]
[2021-01-23 23:39] LABS: Hematocrit 30.2 % (30.3-42.9); Hemoglobin 9.7 gm/dl (10.1-14.3); Mean Corpuscular HGB Conc 32 % (30-34); Mean Corpuscular Volume 82 fl (79-97); Platelet Count 451 K/mm3 (140-440); Red Blood Count 3.71 M/mm3 (3.65-5.03); Red Cell Distribution Width 18.5 % (13.2-15.2)
[2021-01-24] MEDS: INSULIN LISPRO 100 UNIT/ML SUB-Q SCH ×5 (00:18→18:27)
[2021-01-24] MEDS ORDERED: AMIODARONE 900 MG in DEXTROSE 5% IN WATER 482 ML IV SCH (01:00)
[2021-01-24] MEDS ORDERED: AMIODARONE 150 MG in DEXTROSE 5% IN WATER 97 ML IV ONE (01:00)
--- NOTE | 2021-01-24 01:20 | Event Note ---
Date: 01/24/21 Patient has episode of SVT. ER physician is going to restart amiodarone and hold the Cardizem.
[2021-01-24] MEDS: CEFEPIME/NS 2 GM/100 ML 2 GM/100 ML BAG IV SCH ×2 (01:30→13:00)
[2021-01-24] MEDS ORDERED: dilTIAZem 25 MG/5 ML INJ IV ONE (02:43)
[2021-01-24] MEDS ORDERED: dilTIAZem/D5W 100 MG/100 ML BAG IV SCH (03:00)
[2021-01-24 04:36] LABS: Hematocrit 29.6 % (30.3-42.9); Hemoglobin 9.1 gm/dl (10.1-14.3); Mean Corpuscular HGB Conc 31 % (30-34); Mean Corpuscular Volume 80 fl (79-97); Platelet Count 380 K/mm3 (140-440); Red Cell Distribution Width 17.8 % (13.2-15.2)
[2021-01-24] MEDS: SODIUM CHLORIDE 0.9% 1000 ML 1,000 ML IV SCH (04:37)
[2021-01-24 04:56] LABS: ABG HCO3 21.8 mmol/L (20.0-26.0); ABG Methemoglobin 0.4 % (0.0-1.5); ABG Oxygen Saturation 97.1 % (95.0-99.0); ABG PCO2 25.8 mm Hg; ABG PH 7.544 pH Units (7.350-7.450); ABG PO2 76.4 mm Hg (80.0-90.0)
[2021-01-24 05:01] LABS: Alanine Aminotransferase 36 units/L (7-56); Albumin 2.8 g/dL (3.9-5); Blood Urea Nitrogen 15 mg/dL (7-17); Calcium 7.6 mg/dL (8.4-10.2); Hemolysis Index 2
[2021-01-24 05:04] LABS: BUN/Creatinine Ratio 25
[2021-01-24] MEDS ORDERED: POTASSIUM CHLORIDE 10 MEQ 10 MEQ/100 ML BAG IV ONE (05:09)
[2021-01-24] MEDS: HEPARIN 5,000 UNIT/1 ML VIAL SUB-Q SCH ×3 (05:36→21:08)
[2021-01-24] MEDS: POTASSIUM CHLORIDE 10 MEQ 10 MEQ/100 ML BAG IV SCH ×4 (06:12→09:17)
[2021-01-24] MEDS: MAGNESIUM SULFATE 4 GM/100 ML BAG IV ONE ×2 (07:30→09:17)
--- NOTE | 2021-01-24 08:18 | XRay Report ---
CHEST - 1 VIEW 0743 hours INDICATION: follow up respiratory failure COMPARISON: Yesterday FINDINGS: Support devices: Stable support device positioning. Heart: Stable mild cardiomegaly Lungs/pleura: There is better inspiration. Mild bibasilar atelectatic changes and small left pleural effusion are identified. No pneumothorax. Additional findings: None. IMPRESSION: Mild cardiomegaly and small left pleural effusion. Mild bibasilar atelectatic changes or infiltrates. Signer Name: Oscar Cedeno Jr, MD Signed: 01/24/2021 8:14 AM Workstation Name: [id number]
[2021-01-24] MEDS ORDERED: INSULIN GLARGINE 100 UNITS/ML SUB-Q SCH (09:00)
[2021-01-24] MEDS: ASPIRIN 81 MG TAB CHEW PO SCH (10:04)
[2021-01-24] MEDS: SENNOSIDES/DOCUSATE SODIUM 8.6/50 MG TAB FEEDTUBE SCH ×2 (10:05→21:08)
[2021-01-24] MEDS: FAMOTIDINE 20 MG/2 ML INJ IV SCH ×2 (10:34→21:08)
--- NOTE | 2021-01-24 11:36 | Consultation ---
History of Present Illness Consult date: 01/24/21 Requesting physician: TESSY SALCEDO Reason for consult: other (cardiac arrest) History of present illness: 76 y/o female with out of hospital cardiac arrest. Unresponsive on vent so no history able to be obtained. Past History Past Medical History: arthritis, diabetes, hypertension, other (Scoliosis, hernia, heart diverticulitis, gallstone, neuropathy) Past Surgical History: Other (unable to obtain) Social history: other (unable to obtain) Family history: other (unable to obtain) Medications and Allergies Allergies Allergy/AdvReac Type Severity Reaction Status Date / Time acetaminophen [From Tylenol] Allergy Unknown Verified 01/23/21 09:30 codeine Allergy Headache Verified 01/23/21 09:30 cortisone [Cortisone] Allergy Unknown Verified 01/23/21 09:30 Penicillins Allergy Hives Verified 01/23/21 09:30 Home Medications Medication Instructions Recorded Confirmed Last Taken Type Aspirin [Aspirin BABY CHEW TAB] 81 mg PO QDAY tab.chew 01/25/21 Unknown Rx Dextrose 50% in Water [D50W (25GM) 0 ml IV Q30MIN PRN syringe 01/25/21 Unknown Rx Syringe] Glycopyrrolate [Robinul] 0.2 mg IV Q4H PRN vial 01/25/21 Unknown Rx Insulin Glargine [Lantus VIAL] 10 units SUB-Q DAILY units 01/25/21 Unknown Rx LORazepam [Ativan INJ] 2 mg IV Q1H PRN vial 01/25/21 Unknown Rx Lipase/Protease/Amylase [Pancreaze 1 each FEEDTUBE PRN PRN capsule 01/25/[address] 10,500 Unit] Lispro Insulin [HumaLOG] 0 unit SUB-Q Q6HR units 01/25/21 Unknown Rx Min Oil/Petrolatum [Artificial 1 applic OU Q4HR PRN tube 01/25/21 Unknown Rx Tears Ophth Oint] Petrolatum,White [Vaseline Lip 1 applic TP Q2HR PRN tube 01/25/21 Unknown Rx Therapy] Sennosides/Docusate [Senokot S] 1 tab FEEDTUBE BID tablet 01/25/21 Unknown Rx Sodium Chloride 0.9% Int [Sodium 10 ml IV BID syringe 01/25/21 Unknown Rx Chloride Flush Syringe 10 ml] Sodium Chloride 0.9% Int [Sodium 10 ml IV PRN PRN syringe 01/25/21 Unknown Rx Chloride Flush Syringe 10 ml] hydrALAZINE [Apresoline INJ] 10 mg IV Q6H PRN vial 01/25/21 Unknown Rx Active Meds: Active Medications Lipase/Protease/Amylase (Lipase 10,500/Protease 25,000/Amylase 43,750 (Units) Dr Cap) 1 each FEEDTUBE PRN PRN PRN Reason: For Clogged Feeding Tube Aspirin (Aspirin 81 Mg Tab Chew) 81 mg PO QDAY [facility] Last Admin: 01/24/21 10:04 Dose: Not Given Documented by: Dextrose (Dextrose 50% In Water (25gm) 50 Ml Syringe) 0 ml IV Q30MIN PRN; Protocol PRN Reason: Hypoglycemia Famotidine (Famotidine 20 Mg/2 Ml Inj) 20 mg IV BID [facility] Last Admin: 01/24/21 10:34 Dose: 20 mg Documented by: Heparin Sodium (Porcine) (Heparin 5,000 Unit/1 Ml Vial) 5,000 unit SUB-Q Q8HR [facility] Last Admin: 01/24/21 05:36 Dose: 5,000 unit Documented by: Hydralazine HCl (Hydralazine 20 Mg/1 Ml Inj) 10 mg IV Q6H PRN PRN Reason: Blood Pressure Hydromorphone HCl (Hydromorphone 1 Mg/1 Ml Inj) 0.5 mg IV Q3H PRN PRN Reason: Pain , Severe (7-10) Last Admin: 01/23/21 05:45 Dose: 0.5 mg Documented by: Hydrophilic Ointment (Lip Therapy Vaseline) 1 applic TP Q2HR PRN PRN Reason: Dry Lips Last Admin: 01/23/21 10:39 Dose: 1 applic Documented by: Epinephrine 8 mg/ Sodium (Chloride) 250 mls @ 3.75 mls/hr IV TITR ONE; Protocol Stop: 01/25/21 14:21 Last Titration: 01/24/21 05:15 Dose: 0 mcg/min, 0 mls/hr Documented by: Norepinephrine (Levophed Drip 4 Mg/Ns 250 Ml) 4 mg in 250 mls @ 7.5 mls/hr IV TITR MOOSE; Protocol Last Titration: 01/24/21 04:36 Dose: 0 mcg/min, 0 mls/hr Documented by: Levofloxacin/Dextrose (Levaquin 750mg/150ml) 750 mg in 150 mls @ 100 mls/hr IV Q24HR MOOSE; Protocol Last Admin: 01/24/21 10:34 Dose: 100 mls/hr Documented by: Cefepime HCl (Cefepime/Ns 2 Gm/100 Ml) 2 gm in 100 mls @ 200 mls/hr IV Q12H MOOSE; Protocol Last Admin: 01/24/21 01:30 Dose: 200 mls/hr Documented by: Vancomycin HCl 1,500 mg/ (Sodium Chloride) 530 mls @ 333 mls/hr IV Q24H MOOSE; P rotocol Diltiazem HCl (Cardizem/D5w 100mg/100ml) 100 mg in 100 mls @ 5 mls/hr IV TITR MOOSE; Protocol Last Titration: 01/24/21 09:18 Dose: 2 mg/hr, 2 mls/hr Documented by: Magnesium Sulfate (Magnesium Sulfate 4gm/100ml) 4 gm in 100 mls @ 25 mls/hr IV ONCE ONE Stop: 01/24/21 12:59 Last Admin: 01/24/21 09:17 Dose: 25 mls/hr Documented by: Insulin Glargine (Insulin Glargine 100 Units/Ml) 10 units SUB-Q DAILY [facility] Last Admin: 01/24/21 09:22 Dose: 10 units Documented by: Insulin Human Lispro (Insulin Lispro 100 Unit/Ml) 0 unit SUB-Q Q6HR MOOSE; Protocol Last Admin: 01/24/21 05:36 Dose: 4 unit Documented by: Morphine Sulfate (Morphine 2 Mg/1 Ml Inj) 2 mg IV Q4H PRN PRN Reason: Pain, Moderate (4-6) Multi-Ingred Cream/Lotion/Oil/Oint (Mineral Oil/Petrolatum, White Ophth Oint 3.5 Gm) 1 applic OU Q4HR PRN PRN Reason: Dry Eye(s) Last Admin: 01/23/21 10:39 Dose: 1 applic Documented by: Ondansetron HCl (Ondansetron 4 Mg/2 Ml Inj) 4 mg IV Q8H PRN PRN Reason: Nausea And Vomiting Senna/Docusate Sodium (Sennosides/Docusate Sodium 8.6/50 Mg Tab) 1 tab FEEDTUBE BID [facility] Last Admin: 01/24/21 10:05 Dose: 1 tab Documented by: Simple Syrup (Simple Syrup 15 Ml) 15 ml FEEDTUBE PRN PRN PRN Reason: Hypoglycemia Simple Syrup (Simple Syrup 15 Ml) 30 ml FEEDTUBE PRN PRN PRN Reason: Hypoglycemia Sodium Bicarbonate (Sodium Bicarbonate 325 Mg Tab) 325 mg FEEDTUBE PRN PRN PRN Reason: For Clogged Feeding Tube Sodium Chloride (Sodium Chloride 0.9% 10 Ml Flush Syringe) 10 ml IV BID [facility] Last Admin: 01/24/21 11:29 Dose: Not Given Documented by: Sodium Chloride (Sodium Chloride 0.9% 10 Ml Flush Syringe) 10 ml IV PRN PRN PRN Reason: LINE FLUSH Physical Examination Vital signs: Vital Signs Pulse Ox 100 01/22/21 19:38 General appearance: comatose Eyes: non-icteric ENT: other (orally intubated and not sedated) Neck: supple Effort: normal Results - Laboratory Findings CBC and BMP: 01/25/21 05:16 01/25/21 05:16 ABG ABG pH 7.544 pH Units (7.350-7.450) H 01/24/21 04:00 ABG pCO2 25.8 mm Hg 01/24/21 04:00 ABG pO2 76.4 mm Hg (80.0-90.0) L 01/24/21 04:00 ABG O2 Saturation 97.1 % (95.0-99.0) 01/24/21 04:00 PT/INR, D-dimer PT 15.1 Sec. (12.2-14.9) H 01/22/21 20:25 INR 1.07 (0.87-1.13) 01/22/21 20:25 D-Dimer 7238.51 ng/mlDDU (0-234) H 01/22/21 20:25 Abnormal lab findings: Abnormal Labs 01/22/21 01/22/21 01/22/21 20:25 20:25 20:25 WBC 28.8 H RBC 3.46 L Hgb 9.0 L Hct 29.1 L MCH 26 L RDW 18.2 H Plt Count Lymphocytes % (Manual) 3.0 L Seg Neutrophils # Man 19.0 H Lymphocytes # (Manual) 0.9 L Monocytes # (Manual) 0.9 H Basophils # (Manual) 95.6 H PT 15.1 H D-Dimer 7238.51 H ABG pH ABG pO2 ABG HCO3 ABG O2 Saturation ABG Base Excess ABG Hemoglobin VBG pH Sodium 130 L Potassium 6.2 H* Chloride 91.5 L Carbon Dioxide 19 L BUN 27 H Glucose 369 H POC Glucose Lactic Acid Calcium Magnesium AST 156 H ALT 67 H Alkaline Phosphatase Lactate Dehydrogenase C-Reactive Protein NT-Pro-B Natriuret Pep Total Protein 5.7 L Albumin 2.8 L 01/22/21 01/22/21 01/22/21 20:25 20:25 20:25 WBC RBC Hgb Hct MCH RDW Plt Count Lymphocytes % (Manual) Seg Neutrophils # Man Lymphocytes # (Manual) Monocytes # (Manual) Basophils # (Manual) PT D-Dimer ABG pH ABG pO2 ABG HCO3 ABG O2 Saturation ABG Base Excess ABG Hemoglobin VBG pH 7.286 L Sodium Potassium Chloride Carbon Dioxide BUN Glucose POC Glucose Lactic Acid 9.70 H* Calcium Magnesium AST ALT Alkaline Phosphatase Lactate Dehydrogenase C-Reactive Protein NT-Pro-B Natriuret Pep 4440 H Total Protein Albumin 01/22/21 01/22/21 01/22/21 20:25 21:45 23:47 WBC RBC Hgb Hct MCH RDW Plt Count Lymphocytes % (Manual) Seg Neutrophils # Man Lymphocytes # (Manual) Monocytes # (Manual) Basophils # (Manual) PT D-Dimer ABG pH 7.543 H ABG pO2 183.4 H ABG HCO3 17.0 L ABG O2 Saturation 99.3 H ABG Base Excess -4.1 L ABG Hemoglobin 10.0 L VBG pH Sodium Potassium Chloride Carbon Dioxide BUN Glucose POC Glucose 349 H Lactic Acid Calcium Magnesium AST ALT Alkaline Phosphatase Lactate Dehydrogenase 489 H C-Reactive Protein 2.40 H NT-Pro-B Natriuret Pep Total Protein Albumin 01/23/21 01/23/21 01/23/21 01:10 01:49 04:00 WBC RBC Hgb Hct MCH RDW Plt Count Lymphocytes % (Manual) Seg Neutrophils # Man Lymphocytes # (Manual) Monocytes # (Manual) Basophils # (Manual) PT D-Dimer ABG pH ABG pO2 ABG HCO3 ABG O2 Saturation ABG Base Excess ABG Hemoglobin VBG pH Sodium Potassium Chloride Carbon Dioxide BUN Glucose POC Glucose 323 H Lactic Acid 7.10 H* 9.10 H* Calcium Magnesium AST ALT Alkaline Phosphatase Lactate Dehydrogenase C-Reactive Protein NT-Pro-B Natriuret Pep Total Protein Albumin 01/23/21 01/23/21 01/23/21 05:39 07:58 07:58 WBC 25.2 H RBC Hgb Hct MCH 25 L RDW 18.0 H Plt Count 464 H Lymphocytes % (Manual) Seg Neutrophils # Man Lymphocytes # (Manual) Monocytes # (Manual) Basophils # (Manual) PT D-Dimer ABG pH ABG pO2 ABG HCO3 ABG O2 Saturation ABG Base Excess ABG Hemoglobin VBG pH Sodium 133 L Potassium 5.7 H Chloride 95.4 L Carbon Dioxide 18 L BUN 24 H Glucose 291 H POC Glucose 316 H Lactic Acid Calcium Magnesium AST 116 H ALT 66 H Alkaline Phosphatase 136 H Lactate Dehydrogenase C-Reactive Protein NT-Pro-B Natriuret Pep Total Protein Albumin 3.2 L 01/23/21 01/23/21 01/23/21 07:58 10:47 11:57 WBC RBC Hgb Hct MCH RDW Plt Count Lymphocytes % (Manual) Seg Neutrophils # Man Lymphocytes # (Manual) Monocytes # (Manual) Basophils # (Manual) PT D-Dimer ABG pH ABG pO2 ABG HCO3 ABG O2 Saturation ABG Base Excess ABG Hemoglobin VBG pH Sodium Potassium Chloride Carbon Dioxide BUN Glucose POC Glucose 238 H Lactic Acid 8.20 H* 8.00 H* Calcium Magnesium AST ALT Alkaline Phosphatase Lactate Dehydrogenase C-Reactive Protein NT-Pro-B Natriuret Pep Total Protein Albumin 01/23/21 01/24/21 01/24/21 Unknown 00:10 04:00 WBC 18.2 H RBC Hgb 9.7 L Hct 30.2 L MCH 26 L RDW 18.5 H Plt Count 451 H Lymphocytes % (Manual) Seg Neutrophils # Man Lymphocytes # (Manual) Monocytes # (Manual) Basophils # (Manual) PT D-Dimer ABG pH 7.544 H ABG pO2 76.4 L ABG HCO3 ABG O2 Saturation ABG Base Excess ABG Hemoglobin 9.1 L VBG pH Sodium Potassium Chloride Carbon Dioxide BUN Glucose POC Glucose 285 H Lactic Acid Calcium Magnesium AST ALT Alkaline Phosphatase Lactate Dehydrogenase C-Reactive Protein NT-Pro-B Natriuret Pep Total Protein Albumin 01/24/21 01/24/21 01/24/21 05:30 09:21 Unknown WBC RBC Hgb Hct MCH RDW Plt Count Lymphocytes % (Manual) Seg Neutrophils # Man Lymphocytes # (Manual) Monocytes # (Manual) Basophils # (Manual) PT D-Dimer ABG pH ABG pO2 ABG HCO3 ABG O2 Saturation ABG Base Excess ABG Hemoglobin VBG pH Sodium 135 L Potassium 2.8 L* D Chloride 97.1 L Carbon Dioxide 21 L BUN Glucose 306 H POC Glucose 281 H 206 H Lactic Acid Calcium 7.6 L Magnesium 1.00 L AST ALT Alkaline Phosphatase Lactate Dehydrogenase C-Reactive Protein NT-Pro-B Natriuret Pep Total Protein 5.8 L Albumin 2.8 L 01/24/21 Unknown WBC 18.4 H RBC Hgb 9.1 L Hct 29.6 L MCH 25 L RDW 17.8 H Plt Count Lymphocytes % (Manual) Seg Neutrophils # Man Lymphocytes # (Manual) Monocytes # (Manual) Basophils # (Manual) PT D-Dimer ABG pH ABG pO2 ABG HCO3 ABG O2 Saturation ABG Base Excess ABG Hemoglobin VBG pH Sodium Potassium Chloride Carbon Dioxide BUN Glucose POC Glucose Lactic Acid Calcium Magnesium AST ALT Alkaline Phosphatase Lactate Dehydrogenase C-Reactive Protein NT-Pro-B Natriuret Pep Total Protein Albumin - Diagnostic Findings Chest x-ray: image reviewed Assessment and Plan 76 y/o female with out of hospital cardiac arrest, exact etiology unknown, now unresponsive off sedation. 1. Supportive care 2. Family meeting 3. Follow up card recs 4. Discontinue all sedation. CCT 31 minutes
--- NOTE | 2021-01-24 11:52 | Progress Note ---
Assessment and Plan Cultures: SARS CoV2 PCR: negative 01/22/2021 blood culture: no growth A/P: 76-year-old female with diabetes, hypertension admitted to the emergency room following cardiac arrest. Reportedly, she was mostly in PEA but had one transient episode of ventricular fibrillation for which she received d efibrillation: #PEA arrest, lactic acidosis #Leucocytosis: ?reactive. Got CT abdomen pelvis without contrast, showed bibasilar pneumonia versus atelectasis with small pleural effusions, nonobstructing bilateral renal stones. #Transaminitis: Likely shock liver Recs: -continue empiric cefepime, vancomycin for now -Levofloxacin discontinued -MRSA nasal PCR ordered, if negative, will stop vancomycin Tracy Orosco MD, FACP [facility] ([facility] O: [phone] F: [phone] Subjective Date of service: 01/24/21 Interval history: Afebrile. Remains on the vent. Weaned off pressors. Objective - Exam Narrative Exam: Physical Exam: Constitutional: sedated, intubated, on the vent Head, Ears, Nose: Normocephalic, atraumatic. External ears, nose normal Eyes: Conjunctivae/corneas clear. No icterus. No ptosis. Neck: intubated Oral: intubated Cardiovascular: S1, S2 + Respiratory: AE fair bilaterally and equal GI: Soft, bowel sounds + Musculoskeletal: No pedal edema, no cyanosis. Skin: No rash or abscess Hem/Lymphatic: No palpable cervical or supraclavicular nodes. No lymphangitis Psych: no agitation Neurological: sedated, intubated, on the vent, exam limited - Constitutional Vitals: Vital Signs Temp Pulse Resp BP Pulse Ox 99.5 F 82 24 120/55 97 01/24/21 05:40 01/24/21 10:00 01/24/21 10:00 01/24/21 10:00 01/24/21 10:00 Temperature -Last 24 Hours Temperature 99.5 F Temperature 98.6 F - Labs CBC & Chem 7: 01/24/21 Unknown 01/24/21 Unknown Labs: Abnormal lab results 01/23/21 01/23/21 01/24/21 Range/Units 11:57 Unknown 00:10 WBC 18.2 H (4.5-11.0) K/mm3 Hgb 9.7 L (10.1-14.3) gm/dl Hct 30.2 L (30.3-42.9) % MCH 26 L (28-32) pg RDW 18.5 H (13.2-15.2) % Plt Count 451 H (140-440) K/mm3 ABG pH (7.350-7.450) pH Units ABG pO2 (80.0-90.0) mm Hg ABG Hemoglobin (12.0-16.0) gm/dl Sodium (137-145) mmol/L Potassium (3.6-5.0) mmol/L Chloride (98-107) mmol/L Carbon Dioxide (22-30) mmol/L Glucose (65-100) mg/dL POC Glucose 238 H 285 H (70-105) mg/dL Calcium (8.4-10.2) mg/dL Magnesium (1.7-2.3) mg/dL Total Protein (6.3-8.2) g/dL Albumin (3.9-5) g/dL 01/24/21 01/24/21 01/24/21 Range/Units 04:00 05:30 09:21 WBC (4.5-11.0) K/mm3 Hgb (10.1-14.3) gm/dl Hct (30.3-42.9) % MCH (28-32) pg RDW (13.2-15.2) % Plt Count (140-440) K/mm3 ABG pH 7.544 H (7.350-7.450) pH Units ABG pO2 76.4 L (80.0-90.0) mm Hg ABG Hemoglobin 9.1 L (12.0-16.0) gm/dl Sodium (137-145) mmol/L Potassium (3.6-5.0) mmol/L Chloride (98-107) mmol/L Carbon Dioxide (22-30) mmol/L Glucose (65-100) mg/dL POC Glucose 281 H 206 H (70-105) mg/dL Calcium (8.4-10.2) mg/dL Magnesium (1.7-2.3) mg/dL Total Protein (6.3-8.2) g/dL Albumin (3.9-5) g/dL 01/24/21 01/24/21 Range/Units Unknown Unknown WBC 18.4 H (4.5-11.0) K/mm3 Hgb 9.1 L (10.1-14.3) gm/dl Hct 29.6 L (30.3-42.9) % MCH 25 L (28-32) pg RDW 17.8 H (13.2-15.2) % Plt Count (140-440) K/mm3 ABG pH (7.350-7.450) pH Units ABG pO2 (80.0-90.0) mm Hg ABG Hemoglobin (12.0-16.0) gm/dl Sodium 135 L (137-145) mmol/L Potassium 2.8 L* D (3.6-5.0) mmol/L Chloride 97.1 L (98-107) mmol/L Carbon Dioxide 21 L (22-30) mmol/L Glucose 306 H (65-100) mg/dL POC Glucose (70-105) mg/dL Calcium 7.6 L (8.4-10.2) mg/dL Magnesium 1.00 L (1.7-2.3) mg/dL Total Protein 5.8 L (6.3-8.2) g/dL Albumin 2.8 L (3.9-5) g/dL
--- NOTE | 2021-01-24 11:56 | Electrocardiograph Report ---
[facility] Test Date: 2021-01-24 Test Time: 00:54:57 Pat Name: CONCHA JOSE Department: Room: [place] [address] Gender: F [facility] [employer]: KASSANDRA : 1945 Requested By: DESEAN POMPA Order Number: [id number] Reading MD: Carlos Sapp Measurements Intervals [place] Rate: 162 P: 0 AL: 76 QRS: 0 QRSD: 71 T: 223 QT: 255 QTc: 418 Interpretive Statements Supraventricular tachycardia Anteroseptal infarct, age indeterminate Repolarization abnormality, prob rate related Compared to ECG 01/22/2021 20:29:26 Early repolarization now present Atrial fibrillation no longer present T-wave abnormality no longer present Myocardial infarct finding still present Electronically Signed On 01-24-2021 11:56:33 EDT by Carlos Sapp
--- NOTE | 2021-01-24 13:32 | Progress Note ---
Assessment and Plan Assessment and plan: HPI: 76-year-old female with past medical history of hypertension, diabetes, not vaccinated against COVID-19 was brought to the emergency room from home in cardiac arrest. Apparently the patient has been complaining of some generalized abdominal pain over the past 2 days. This afternoon she had told her daughter that her abdominal had improved. However, this evening she told her aide that she was having shortness of breath and they called for EMS. In the meantime a gave her a sublingual nitroglycerin. When EMS arrived the patient suddenly collapsed and went into cardiac arrest. They intubated the patient and began providing bag valve ventilation and chest compressions as part of ACLS protocol. She had 4 rounds of epinephrine. She was mostly in PEA but had one transient episode of V. fib for which she received a defibrillation. EMS also said that the patient had a very brief ROSC just before arriving to the emergency department. Hospital Course: 01/24: no neurological response off of sedation. diltiazem gtt being weaned off currently as HR improved. May benefit from CTA brain or NM brain scan, d/w critical care. Overall poor prognosis. Assessment and Plan: Neuro: acute encephalopathy - significant downtime from cardiac arrest. - CT brain on admission negative for acute findings. - currently off of sedation and still not following commands - would benefit from brain scan, will discuss CTA brain with [facility] Cardiac: PEA, Vfib, Cardiac Arrrest s/p ROSC, atrial fibrillation with RVR - unclear what inciting event leading to arrest was - ROS achieved after chest compressions, defibrillation and 4 rounds of epinephrine - currenlty on pressor support - on diltiazem gtt, weaned off. HR better controlled this AM - troponin non elevated - cardiology is following Pulm: Acute Respiratory Failure with Hypoxia, bibasilar pneumonia noted on CTAP - intubated currently - MV management per PCCM - serial CXR q48hr - PCCM following GI- Transamiitis - some question of shock liver, however transaminitis would expect to be more significant Renal- hypokalemia, nonobtructing renal calculi - electrolyte replacement protocol - daily renal profile. - mointor UoP -CTAP shows non obstructing renal calculi - ID- Bilateral pneumonia - SARS CoV2 PCR: negative - 01/22/2021 blood culture: no growth - MRSA swab pending. - continue empiric cefepime and vancomycin. - ID following Heme - Monitor H/H, plt, wbc ct on cbc Endo - accuchecks q4hr History Interval history: intubated and sedated. Hospitalist Physical - Physical exam Narrative exam: Physical Exam: VITAL SIGNS: Reviewed. GENERAL: The patient appears normally developed, Vital signs as documented. HEAD: No signs of head trauma. EYES: Pupils are dilated. MOUTH: Oropharynx has OETT in place NECK: No adenopathy, no JVD. CHEST: Chest with clear breath sounds bilaterally. BL rhonchi appreciated CARDIAC: Regular rate and rhythm. S1 and S2, without murmurs, gallops, or rubs. VASCULAR: No Edema. Peripheral pulses normal and equal in all extremities. ABDOMEN: Soft, non tender and non distended. No rebound or guarding, and no masses palpated. Bowel Sounds normal. MUSCULOSKELETAL: Good range of motion of all major joints. Extremities without clubbing, cyanosis or edema. NEUROLOGIC EXAM: Does not withdraw to painful stimuli, reflexes appear to be absent. Not following commands. SKIN: detail exam as documented in skin assessment - Constitutional Vitals: Temp Pulse Resp BP Pulse Ox 99.5 F 82 24 120/55 97 01/24/21 05:40 01/24/21 10:00 01/24/21 10:00 01/24/21 10:00 01/24/21 10:00 General appearance: Present: other (intubated and sedated) HEART Score - HEART Score Troponin: Troponin T < 0.010 ng/mL (0.00-0.029) 01/23/21 10:47 Results - Labs CBC & Chem 7: 01/24/21 Unknown 01/24/21 Unknown Labs: Laboratory Last Values WBC 18.4 K/mm3 (4.5-11.0) H 01/24/21 Unknown RBC 3.70 M/mm3 (3.65-5.03) 01/24/21 Unknown Hgb 9.1 gm/dl (10.1-14.3) L 01/24/21 Unknown Hct 29.6 % (30.3-42.9) L 01/24/21 Unknown MCV 80 fl (79-97) 01/24/21 Unknown MCH 25 pg (28-32) L 01/24/21 Unknown MCHC 31 % (30-34) 01/24/21 Unknown RDW 17.8 % (13.2-15.2) H 01/24/21 Unknown Plt Count 380 K/mm3 (140-440) 01/24/21 Unknown Add Manual Diff Complete 01/22/21 20:25 Total Counted 100 01/22/21 20:25 Seg Neutrophils % Engineering Drawings Checker 01/22/21 20:25 Seg Neuts % (Manual) 66.0 % (40.0-70.0) 01/22/21 20:25 Band Neutrophils % 23.0 % 01/22/21 20:25 Lymphocytes % (Manual) 3.0 % (13.4-35.0) L 01/22/21 20:25 Monocytes % (Manual) 3.0 % (0.0-7.3) 01/22/21 20:25 Eosinophils % (Manual) 1.0 % (0.0-4.3) 01/22/21 20:25 Metamyelocytes % 3.0 % 01/22/21 20:25 Myelocytes % 1.0 % 01/22/21 20:25 Nucleated RBC % Not Reportable 01/22/21 20:25 Seg Neutrophils # Man 19.0 K/mm3 (1.8-7.7) H 01/22/21 20:25 Band Neutrophils # 6.6 K/mm3 01/22/21 20:25 Lymphocytes # (Manual) 0.9 K/mm3 (1.2-5.4) L 01/22/21 20:25 Abs React Lymphs (Man) 95.6 K/mm3 01/22/21 20:25 Monocytes # (Manual) 0.9 K/mm3 (0.0-0.8) H 01/22/21 20:25 Eosinophils # (Manual) 0.3 K/mm3 (0.0-0.4) 01/22/21 20:25 Basophils # (Manual) 95.6 K/mm3 (0.0-0.1) H 01/22/21 20:25 Metamyelocytes # 0.9 K/mm3 01/22/21 20:25 Myelocytes # 0.3 K/mm3 01/22/21 20:25 Promyelocytes # 95.6 K/mm3 01/22/21 20:25 Blast Cells # 95.6 K/mm3 01/22/21 20:25 WBC Morphology Not Reportable 01/22/21 20:25 Hypersegmented Neuts Not Reportable 01/22/21 20:25 Hyposegmented Neuts Not Reportable 01/22/21 20:25 Hypogranular Neuts Not Reportable 01/22/21 20:25 Smudge Cells Not Reportable 01/22/21 20:25 Toxic Granulation Not Reportable 01/22/21 20:25 Toxic Vacuolation Not Reportable 01/22/21 20:25 Dohle Bodies Not Reportable 01/22/21 20:25 Pelger-Huet Anomaly Not Reportable 01/22/21 20:25 Tamika Rods Not Reportable 01/22/21 20:25 Platelet Estimate Consistent w auto 01/22/21 20:25 Clumped Platelets Not Reportable 01/22/21 20:25 Plt Clumps, EDTA Not Reportable 01/22/21 20:25 Large Platelets Not Reportable 01/22/21 20:25 Giant Platelets Not Reportable 01/22/21 20:25 Platelet Satelliting Not Reportable 01/22/21 20:25 Plt Morphology Comment Not Reportable 01/22/21 20:25 RBC Morphology Not Reportable 01/22/21 20:25 Dimorphic RBCs Not Reportable 01/22/21 20:25 Polychromasia Not Reportable 01/22/21 20:25 Hypochromasia 2+ 01/22/21 20:25 Poikilocytosis Not Reportable 01/22/21 20:25 Anisocytosis 2+ 01/22/21 20:25 Microcytosis 1+ 01/22/21 20:25 Macrocytosis Few 01/22/21 20:25 Spherocytes Not Reportable 01/22/21 20:25 Pappenheimer Bodies Not Reportable 01/22/21 20:25 Sickle Cells Not Reportable 01/22/21 20:25 Target Cells Not Reportable 01/22/21 20:25 Tear Drop Cells Not Reportable 01/22/21 20:25 Ovalocytes Not Reportable 01/22/21 20:25 Helmet Cells Not Reportable 01/22/21 20:25 [place] Bodies Not Reportable 01/22/21 20:25 [place] Rings Not Reportable 01/22/21 20:25 Vivienne Cells Not Reportable 01/22/21 20:25 Bite Cells Not Reportable 01/22/21 20:25 Crenated Cell Not Reportable 01/22/21 20:25 Elliptocytes Not Reportable 01/22/21 20:25 Acanthocytes (Spur) Not Reportable 01/22/21 20:25 Rouleaux Not Reportable 01/22/21 20:25 Hemoglobin C Crystals Not Reportable 01/22/21 20:25 Schistocytes Not Reportable 01/22/21 20:25 Malaria parasites Not Reportable 01/22/21 20:25 David Bodies Not Reportable 01/22/21 20:25 Hem Pathologist Commnt No 01/22/21 20:25 PT 15.1 Sec. (12.2-14.9) H 01/22/21 20:25 INR 1.07 (0.87-1.13) 01/22/21 20:25 APTT 29.0 Sec. (24.2-36.6) 01/22/21 20:25 D-Dimer 7238.51 ng/mlDDU (0-234) H 01/22/21 20:25 ABG pH 7.544 pH Units (7.350-7.450) H 01/24/21 04:00 ABG pCO2 25.8 mm Hg 01/24/21 04:00 ABG pO2 76.4 mm Hg (80.0-90.0) L 01/24/21 04:00 ABG HCO3 21.8 mmol/L (20.0-26.0) 01/24/21 04:00 ABG O2 Saturation 97.1 % (95.0-99.0) 01/24/21 04:00 ABG O2 Content 12.2 (0.0-44) 01/24/21 04:00 ABG Base Excess 0.0 mmol/L (-2.0-3.0) 01/24/21 04:00 ABG Hemoglobin 9.1 gm/dl (12.0-16.0) L 01/24/21 04:00 ABG Carboxyhemoglobin 1.6 % (0.0-5.0) 01/24/21 04:00 ABG Methemoglobin 0.4 % (0.0-1.5) 01/24/21 04:00 VBG pH 7.286 (7.320-7.420) L 01/22/21 20:25 Oxyhemoglobin 95.1 % (95.0-99.0) 01/24/21 04:00 FiO2 30 % 01/24/21 04:00 Sodium 135 mmol/L (137-145) L 01/24/21 Unknown Potassium 2.8 mmol/L (3.6-5.0) L* D 01/24/21 Unknown Chloride 97.1 mmol/L (98-107) L 01/24/21 Unknown Carbon Dioxide 21 mmol/L (22-30) L 01/24/21 Unknown Anion Gap 20 mmol/L 01/24/21 Unknown BUN 15 mg/dL (7-17) 01/24/21 Unknown Creatinine 0.6 mg/dL (0.6-1.2) 01/24/21 Unknown Estimated GFR > 60 ml/min 01/24/21 Unknown BUN/Creatinine Ratio 25 % 01/24/21 Unknown Glucose 306 mg/dL (65-100) H 01/24/21 Unknown POC Glucose 177 mg/dL (70-105) H 01/24/21 12:07 Lactic Acid 8.00 mmol/L (0.7-2.0) H* 01/23/21 10:47 Calcium 7.6 mg/dL (8.4-10.2) L 01/24/21 Unknown Phosphorus 3.30 mg/dL (2.5-4.5) 01/24/21 Unknown Magnesium 1.00 mg/dL (1.7-2.3) L 01/24/21 Unknown Ferritin 38.4 ng/mL (10.0-200.0) 01/22/21 20:25 Total Bilirubin 0.30 mg/dL (0.1-1.2) 01/24/21 Unknown AST 27 units/L (5-40) 01/24/21 Unknown ALT 36 units/L (7-56) 01/24/21 Unknown Alkaline Phosphatase 94 units/L (35-129) 01/24/21 Unknown Lactate Dehydrogenase 489 units/L (91-180) H 01/22/21 20:25 Troponin T < 0.010 ng/mL (0.00-0.029) 01/23/21 10:47 C-Reactive Protein 2.40 mg/dL (0.00-1.30) H 01/22/21 20:25 NT-Pro-B Natriuret Pep 4440 pg/mL (0-900) H 01/22/21 20:25 Total Protein 5.8 g/dL (6.3-8.2) L 01/24/21 Unknown Albumin 2.8 g/dL (3.9-5) L 01/24/21 Unknown Albumin/Globulin Ratio 0.9 % 01/24/21 Unknown Procalcitonin 0.06 ng/mL (<0.15) 01/22/21 20:25 TSH 2.380 mlU/mL (0.270-4.200) 01/22/21 20:25 Plasma/Serum Alcohol < 0.01 % (0-0.07) 01/22/21 20:25 Coronavirus (PCR) Negative (Negative) 01/23/21 08:00 Microbiology: Microbiology 01/22/21 Unknown Peripheral/Venous Blood Culture - Preliminary NO GROWTH AFTER 24 HOURS 01/22/21 Unknown Peripheral/Venous Blood Culture - Preliminary NO GROWTH AFTER 24 HOURS Active Medications - Current Medications Current Medications: Generic Name Dose Route Start Last Admin Trade Name Freq PRN Reason Stop Dose Admin Lipase/Protease/Amylase 1 each 01/23/21 15:00 Lipase 10,500/Protease 25,000/Amylase 43,750 (Units) Dr Mancilla FEEDTUBE PRN PRN For Clogged Feeding Tube Aspirin 81 mg 01/23/21 10:00 01/24/21 10:04 Aspirin 81 Mg Tab Chew PO Not Given QDAY MOOSE Dextrose 0 ml 01/23/21 00:26 Dextrose 50% In Water (25gm) 50 Ml Syringe IV Q30MIN PRN Hypoglycemia Protocol Famotidine 20 mg 01/22/21 22:00 01/24/21 10:34 Famotidine 20 Mg/2 Ml Inj IV 20 mg BID MOOSE Administration Heparin Sodium (Porcine) 5,000 unit 01/23/21 06:00 01/24/21 05:36 Heparin 5,000 Unit/1 Ml Vial SUB-Q 5,000 unit Q8HR MOOSE Administration Hydralazine HCl 10 mg 01/23/21 00:38 Hydralazine 20 Mg/1 Ml Inj IV Q6H PRN Blood Pressure Hydrophilic Ointment 1 applic 01/22/21 19:43 01/23/21 10:39 Lip Therapy Vaseline TP 1 applic Q2HR PRN Administration Dry Lips Epinephrine 8 mg/ Sodium 250 mls @ 3.75 mls/hr 01/22/21 19:42 01/24/21 05:15 Chloride IV 01/25/21 14:21 0 mcg/min TITR ONE 0 mls/hr Titration Protocol 2 MCG/MIN Norepinephrine 4 mg in 250 mls @ 7.5 mls/hr 01/22/21 20:00 01/24/21 04:36 Levophed Drip 4 Mg/Ns 250 Ml IV 0 mcg/min TITR MOOSE 0 mls/hr Titration Protocol 2 MCG/MIN Cefepime HCl 2 gm in 100 mls @ 200 mls/hr 01/23/21 13:00 01/24/21 01:30 Cefepime/Ns 2 Gm/100 Ml IV 200 mls/hr Q12H MOOSE Administration Protocol Vancomycin HCl 1,500 mg/ 530 mls @ 333 mls/hr 01/24/21 14:00 Sodium Chloride IV Q24H [facility] Protocol Diltiazem HCl 100 mg in 100 mls @ 5 mls/hr 01/24/21 03:00 01/24/21 09:18 Cardizem/D5w 100mg/100ml IV 2 mg/hr TITR MOOSE 2 mls/hr Titration Protocol 5 MG/HR Magnesium Sulfate 4 gm in 100 mls @ 25 mls/hr 01/24/21 09:00 01/24/21 09:17 Magnesium Sulfate 4gm/100ml IV 01/24/21 12:59 25 mls/hr ONCE ONE Administration Insulin Glargine 10 units 01/24/21 09:00 01/24/21 09:22 Insulin Glargine 100 Units/Ml SUB-Q 10 units DAILY MOOSE Administration Insulin Human Lispro 0 unit 01/23/21 06:00 01/24/21 12:09 Insulin Lispro 100 Unit/Ml SUB-Q Not Given Q6HR [facility] Protocol Multi-Ingred Cream/Lotion/Oil/Oint 1 applic 01/22/21 19:43 01/23/21 10:39 Mineral Oil/Petrolatum, White Ophth Oint 3.5 Gm OU 1 applic Q4HR PRN Administration Dry Eye(s) Ondansetron HCl 4 mg 01/23/21 00:26 Ondansetron 4 Mg/2 Ml Inj IV Q8H PRN Nausea And Vomiting Senna/Docusate Sodium 1 tab 01/22/21 22:00 01/24/21 10:05 Sennosides/Docusate Sodium 8.6/50 Mg Tab FEEDTUBE 1 tab BID MOOSE Administration Simple Syrup 15 ml 01/23/21 14:00 Simple Syrup 15 Ml FEEDTUBE PRN PRN Hypoglycemia Simple Syrup 30 ml 01/23/21 14:00 Simple Syrup 15 Ml FEEDTUBE PRN PRN Hypoglycemia Sodium Bicarbonate 325 mg 01/23/21 14:00 Sodium Bicarbonate 325 Mg Tab FEEDTUBE PRN PRN For Clogged Feeding Tube Sodium Chloride 10 ml 01/23/21 10:00 01/24/21 11:29 Sodium Chloride 0.9% 10 Ml Flush Syringe IV Not Given BID MOOSE Sodium Chloride 10 ml 01/23/21 00:26 Sodium Chloride 0.9% 10 Ml Flush Syringe IV PRN PRN LINE FLUSH Nutrition/Malnutrition Assess - Dietary Evaluation Nutrition/Malnutrition Findings: Nutrition Notes Start: 01/23/21 12:50 Freq: Status: Active Protocol: Document 01/23/21 12:51 GB (Rec: 01/23/21 13:22 GB [id number]) Nutrition Notes Need for Assessment generated from: MD Order Initial or Follow up Assessment Current Diagnosis Sepsis,Heart Failure, Respiratory Failure Other Pertinent Diagnosis Intubated Current Diet NPO Labs/Tests 01/23: glucose 291, BUN 24, Na 133, K 5.7, AST 116, ALT 66, AlkP 136 Pertinent Medications D5 (PRN), Epinephrine 8 / NaCl , norepinephrine, NaCl 100ml/ hr, Levofloxacin/D5 100ml/hr ( 408kcal), Midazolam HCl/NaCl Height 5 ft 6 in Weight 99.79 kg [place] Body Weight (kg) 59.09 BMI 35.5 Weight change and time frame admit weight. No reported weight changes on admission Weight Status Obese Subjective/Other Information H/P: pt arrived intubated, cardiac arrest NGT ends in stomach MD order for po eval Pt vented and sedated Percent of energy/protein needs met: 0% - NPO TF to start Burn Absent Trauma Absent GI Symptoms None Difficulty In Swallowing Food Allergy No Skin Integrity/Comment no complications reported Current % PO Other Minimum of two criteria No #1 Nutrition Diagnosis Swallowing difficulty Etiology cardiac arrest, respiratory failure As Evidenced by Signs and Symptoms Intubated/sedated Is patient on ventilator? Yes Is Patient Ambulatory and/or Out of Bed No REE-([place]-confined to bed) 1811.676 Kcal/Kg value to use for calculation 18 Approximate Energy Requirements Using 1796 kcal/Kg Calculation Used for Recommendations Kcal/kg Additional Notes Protein 0.8-1g/kg @ 99k- 99g 1 ml/kcal or per MD Nutrition Intervention Change Diet Order: continue NPO Nutrition Support: Vital 1.2 @ 50ml/hr Flush 100ml/4hr Total fluids: TF at goal + flush = 1573ml Kcal 1,440 Protein (gm) 90 Carbohydrates (gm) 133 Fat (gm) 65 Fluid (mL) 973 Goal #1 Tolerate TF at goal rate 50ml/ hr (vital AF 1.2) Goal #2 Extubated and diet advanced to cardiac/consistent carbohydrate Follow-Up By: 01/25/21 Additional Comments f/u: TF, vent status
[2021-01-24] MEDS ORDERED: VANCOMYCIN 1,500 MG in SODIUM CHLORIDE 0.9% 500 ML 500 ML IV SCH (14:00)
[2021-01-24] MEDS ORDERED: ONDANSETRON 4 MG/2 ML INJ IV ONE (14:01)
--- NOTE | 2021-01-24 14:36 | Progress Note ---
Assessment and Plan Echo reviewed - EF 50-55%, mild TR, RVSP 50mmHg. Ok to continue Cardizem as BP permits (on 240mg daily as an outpatient). Obtain repeat 12-lead ECG. KCl & Mg repletion underway. Poor prognosis. Will follow. Pt seen in conjunction with Dr. Sapp, who agrees with the assessment and plan of care. - Patient Problems (1) Anoxic brain injury Current Visit: Yes Status: Suspected (2) Acute metabolic encephalopathy Current Visit: Yes Status: Acute (3) Acute respiratory failure Current Visit: Yes Status: Acute Qualifiers: Qualified Code(s): J96.00 - Acute respiratory failure, unspecified whether with hypoxia or hypercapnia (4) Sepsis Current Visit: Yes Status: Acute (5) PNA (pneumonia) Current Visit: Yes Status: Acute (6) Cardiac arrest Current Visit: Yes Status: Acute (7) SVT (supraventricular tachycardia) Current Visit: Yes Status: Acute (8) Hypokalemia Current Visit: Yes Status: Acute (9) Hypomagnesemia Current Visit: Yes Status: Acute (10) Elevated LFTs Current Visit: Yes Status: Acute (11) Anemia Current Visit: Yes Status: Acute (12) Hypertension Current Visit: No Status: Chronic Qualifiers: Hypertension type: primary hypertension Qualified Code(s): I10 - Essential (primary) hypertension (13) Diabetes mellitus Current Visit: Yes Status: Chronic (14) Decubitus ulcer, buttock Current Visit: Yes Status: Chronic Subjective Date of service: 01/24/21 Principal diagnosis: PEA Arrest Interval history: Episode of SVT noted overnight. S/p IV Amio gtt. In SR 80s on bedside monitor upon assessment. Remains on Cardizem gtt @ 2mg/hr. Objective Last Vital Signs Temp 99.5 F 01/24/21 05:40 Pulse 79 01/24/21 12:50 Resp 24 01/24/21 10:00 BP 137/66 01/24/21 12:50 Pulse Ox 96 01/24/21 12:50 - Physical Examination General: Other (intubated/sedated) HEENT: Positive: Normocephaly, Mucus Membranes Dry Neck: Positive: trachea midline. Negative: JVD/HJR Cardiac: Positive: Reg Rate and Rhythm, S1/S2 Lungs: Positive: Ventilated Respirations Neuro: Positive: Other (dilated pupils, unresponsive) Abdomen: Positive: Soft Skin: Negative: Rash Extremities: Present: lower extr. pulses. Absent: edema - Labs and Meds Cardiac Enzymes 01/24/21 Range/Units Unknown AST 27 (5-40) units/L CBC 01/23/21 01/24/21 Range/Units Unknown Unknown WBC 18.2 H 18.4 H (4.5-11.0) K/mm3 RBC 3.71 3.70 (3.65-5.03) M/mm3 Hgb 9.7 L 9.1 L (10.1-14.3) gm/dl Hct 30.2 L 29.6 L (30.3-42.9) % Plt Count 451 H 380 (140-440) K/mm3 Comprehensive Metabolic Panel 01/24/21 Range/Units Unknown Sodium 135 L (137-145) mmol/L Potassium 2.8 L* D (3.6-5.0) mmol/L Chloride 97.1 L (98-107) mmol/L Carbon Dioxide 21 L (22-30) mmol/L BUN 15 (7-17) mg/dL Creatinine 0.6 (0.6-1.2) mg/dL Glucose 306 H (65-100) mg/dL Calcium 7.6 L (8.4-10.2) mg/dL AST 27 (5-40) units/L ALT 36 (7-56) units/L Alkaline Phosphatase 94 (35-129) units/L Total Protein 5.8 L (6.3-8.2) g/dL Albumin 2.8 L (3.9-5) g/dL - Imaging and Cardiology EKG: report reviewed Echo: report reviewed - Telemetry EKG Rhythm: Sinus Rhythm Repolarization changes or abnormalities: nonspecific abnormality, ST segment, and/or T wave - Allied health notes Allied health notes reviewed: nursing
[2021-01-25] LABS: Alanine Aminotransferase 26 units/L (7-56); Albumin 2.8 g/dL (3.9-5); Blood Urea Nitrogen 12 mg/dL (7-17); Calcium 7.5 mg/dL (8.4-10.2); Hemolysis Index 6
[2021-01-25 00:10] LABS: BUN/Creatinine Ratio 24
[2021-01-25] MEDS ORDERED: POTASSIUM CHLORIDE 20 MEQ 20 MEQ/100 ML BAG IV ONE ×2 (01:04→03:35)
[2021-01-25] MEDS: CEFEPIME/NS 2 GM/100 ML 2 GM/100 ML BAG IV SCH (01:16)
[2021-01-25] MEDS: INSULIN LISPRO 100 UNIT/ML SUB-Q SCH ×2 (01:16→06:23)
[2021-01-25 03:51] LABS: ABG Base Excess 0.9 mmol/L (-2.0-3.0); ABG HCO3 23.5 mmol/L (20.0-26.0); ABG Methemoglobin 0.4 % (0.0-1.5); ABG Oxygen Saturation 97.4 % (95.0-99.0); ABG PCO2 29.8 mm Hg; ABG PH 7.515 pH Units (7.350-7.450); ABG PO2 86.6 mm Hg (80.0-90.0)
--- NOTE | 2021-01-25 04:27 | XRay Report ---
CHEST 1 VIEW 01/25/2021 3:06 AM INDICATION / CLINICAL INFORMATION: follow up respiratory failure. COMPARISON: 01/25/2020 FINDINGS: SUPPORT DEVICES: Stable, satisfactory device positioning. HEART / MEDIASTINUM: Stable. LUNGS / PLEURA: Redemonstrated bibasilar opacities, to include left pleural effusion. No pneumothorax . ADDITIONAL FINDINGS: No significant additional findings. IMPRESSION: 1. No significant change. Signer Name: García Morin DO Signed: 01/25/2021 4:22 AM Workstation Name: [id number]
[2021-01-25 05:58] LABS: Hematocrit 27.1 % (30.3-42.9); Hemoglobin 8.7 gm/dl (10.1-14.3); Mean Corpuscular HGB Conc 32 % (30-34); Mean Corpuscular Volume 80 fl (79-97); Platelet Count 330 K/mm3 (140-440)
[2021-01-25] MEDS: HEPARIN 5,000 UNIT/1 ML VIAL SUB-Q SCH (06:24)
[2021-01-25 06:32] LABS: Alanine Aminotransferase 23 units/L (7-56); Albumin 2.9 g/dL (3.9-5); BUN/Creatinine Ratio 22; Blood Urea Nitrogen 11 mg/dL (7-17); Calcium 7.5 mg/dL (8.4-10.2); Hemolysis Index 1
--- NOTE | 2021-01-25 07:24 | Event Note ---
Date: 01/24/21 Had discussion with patient's daughter Mary Whitaker ([phone]) on the evening of 01/24. Discussed patient's overall clinical picture, mental status, and overall poor prognosis. She states her mother would not want aggressive measures and that she would like comfort measures. Daughter will be coming to see her mother at 1030 AM on 01/25. Will plan for end of life discussion with her.
--- NOTE | 2021-01-25 09:20 | Electrocardiograph Report ---
[facility] Test Date: 2021-01-25 Test Time: 07:06:38 Pat Name: CONCHA JOSE Department: Room: A254 Gender: F Customer Support Analyst: MARIAMA : 1945 Requested By: PRINCESS TOLEDO Order Number: [id number] Reading MD: Carlos Sapp Measurements Intervals [place] Rate: 83 P: 34 CA: 223 QRS: -65 QRSD: 94 T: -27 QT: 433 QTc: 509 Interpretive Statements Sinus rhythm Prolonged CA interval Left anterior fascicular block nonspecific st-t Prolonged QT interval Compared to ECG 01/24/2021 00:54:57 Electronically Signed On 01-25-2021 9:20:13 EDT by Carlos Sapp
[2021-01-25] MEDS ORDERED: POTASSIUM CHLORIDE 20 MEQ PACKET FEEDTUBE SCH (09:30)
[2021-01-25] MEDS ORDERED: MAGNESIUM SULFATE 2 GM/50 ML BAG IV SCH (09:30)
--- NOTE | 2021-01-25 09:42 | Progress Note ---
Assessment and Plan Cultures: SARS CoV2 PCR: negative 01/22/2021 blood culture: no growth A/P: 76-year-old female with diabetes, hypertension admitted to the emergency room following cardiac arrest. Reportedly, she was mostly in PEA but had one transient episode of ventricular fibrillation for which she received d efibrillation: #PEA arrest, lactic acidosis #Leucocytosis: ?reactive secondary to above. Got CT abdomen pelvis without contrast, showed bibasilar pneumonia versus atelectasis with small pleural effu sions, nonobstructing bilateral renal stones. No clear source of infection identified #Transaminitis: resolved. Recs: -continue empiric cefepime, vancomycin for now -f/u MRSA nasal PCR, if negative, stop vancomycin -overall poor prognosis, goals of care discussion. Stop abx if transitioned to comfort care/hospice Tracy Orosco MD, FACP [facility] ([facility]) O: [phone] F: [phone] Subjective Date of service: 01/25/21 Principal diagnosis: PEA Arrest Interval history: Low-grade temperature. Remains on the vent. Unresponsive. Objective - Exam Narrative Exam: Physical Exam: Constitutional: unresponsive, intubated, on the vent Head, Ears, Nose: Normocephalic, atraumatic. External ears, nose normal Eyes: Conjunctivae/corneas clear. No icterus. No ptosis. Neck: intubated Oral: intubated Cardiovascular: S1, S2 + Respiratory: AE fair bilaterally and equal GI: Soft, bowel sounds + Musculoskeletal: No pedal edema, no cyanosis. Skin: No rash or abscess Hem/Lymphatic: No palpable cervical or supraclavicular nodes. No lymphangitis Psych: no agitation Neurological: unresponsive, intubated, on the vent, exam limited - Constitutional Vitals: Vital Signs Temp Pulse Resp BP Pulse Ox 99.1 F 78 16 129/60 98 01/25/21 07:00 01/25/21 08:00 01/25/21 05:15 01/25/21 08:00 01/25/21 08:00 Temperature -Last 24 Hours Temperature 99.1 F Temperature 100.8 F Temperature 99.4 F - Labs CBC & Chem 7: 01/25/21 05:16 01/25/21 05:16 Labs: Abnormal lab results 01/24/21 01/24/21 01/24/21 Range/Units 12:07 15:56 18:15 WBC (4.5-11.0) K/mm3 RBC (3.65-5.03) M/mm3 Hgb (10.1-14.3) gm/dl Hct (30.3-42.9) % MCH (28-32) pg RDW (13.2-15.2) % ABG pH (7.350-7.450) pH Units ABG Hemoglobin (12.0-16.0) gm/dl Sodium (137-145) mmol/L Potassium 3.0 L (3.6-5.0) mmol/L Chloride (98-107) mmol/L Creatinine (0.6-1.2) mg/dL Glucose (65-100) mg/dL POC Glucose 177 H 133 H (70-105) mg/dL Calcium (8.4-10.2) mg/dL Total Protein (6.3-8.2) g/dL Albumin (3.9-5) g/dL 01/24/21 01/24/21 01/25/21 Range/Units 23:31 23:51 03:35 WBC (4.5-11.0) K/mm3 RBC (3.65-5.03) M/mm3 Hgb (10.1-14.3) gm/dl Hct (30.3-42.9) % MCH (28-32) pg RDW (13.2-15.2) % ABG pH 7.515 H (7.350-7.450) pH Units ABG Hemoglobin 8.6 L (12.0-16.0) gm/dl Sodium 134 L (137-145) mmol/L Potassium 3.0 L (3.6-5.0) mmol/L Chloride 97.4 L (98-107) mmol/L Creatinine 0.5 L (0.6-1.2) mg/dL Glucose 152 H (65-100) mg/dL POC Glucose 146 H (70-105) mg/dL Calcium 7.5 L (8.4-10.2) mg/dL Total Protein 5.8 L (6.3-8.2) g/dL Albumin 2.8 L (3.9-5) g/dL 01/25/21 01/25/21 01/25/21 Range/Units 05:16 05:16 05:29 WBC 17.3 H (4.5-11.0) K/mm3 RBC 3.40 L (3.65-5.03) M/mm3 Hgb 8.7 L (10.1-14.3) gm/dl Hct 27.1 L (30.3-42.9) % MCH 26 L (28-32) pg RDW 18.0 H (13.2-15.2) % ABG pH (7.350-7.450) pH Units ABG Hemoglobin (12.0-16.0) gm/dl Sodium 133 L (137-145) mmol/L Potassium 3.3 L (3.6-5.0) mmol/L Chloride 97.8 L (98-107) mmol/L Creatinine 0.5 L (0.6-1.2) mg/dL Glucose 134 H (65-100) mg/dL POC Glucose 137 H (70-105) mg/dL Calcium 7.5 L (8.4-10.2) mg/dL Total Protein 5.7 L (6.3-8.2) g/dL Albumin 2.9 L (3.9-5) g/dL
--- NOTE | 2021-01-25 10:39 | Progress Note ---
Subjective Date of service: 01/25/21 Principal diagnosis: PEA Arrest Interval history: Family has elected to withdraw care as patient would not have wanted these aggressive measures. Objective Vital Signs - 12hr 01/24/21 01/24/21 01/24/21 23:28 23:43 23:45 Temperature Pulse Rate 96 H 95 H 92 H Respiratory 14 15 14 Rate Blood Pressure O2 Sat by Pulse 99 100 99 Oximetry 01/24/21 01/25/21 01/25/21 23:50 00:00 00:10 Temperature 99.4 F Pulse Rate 104 H 93 H 92 H Respiratory 24 Rate Blood Pressure 151/71 O2 Sat by Pulse 100 100 100 Oximetry 01/25/21 01/25/21 01/25/21 00:15 00:31 00:36 Temperature Pulse Rate 96 H 100 H Respiratory 12 13 Rate Blood Pressure 151/71 151/71 O2 Sat by Pulse 100 100 99 Oximetry 01/25/21 01/25/21 01/25/21 00:45 01:00 01:15 Temperature Pulse Rate 92 H 90 94 H Respiratory 11 L 24 24 Rate Blood Pressure 151/71 147/69 147/69 O2 Sat by Pulse 100 99 100 Oximetry 01/25/21 01/25/21 01/25/21 01:31 01:45 02:00 Temperature Pulse Rate 93 H 96 H 96 H Respiratory 18 23 14 Rate Blood Pressure 147/69 147/69 156/63 O2 Sat by Pulse 100 100 100 Oximetry 01/25/21 01/25/21 01/25/21 02:15 02:31 02:45 Temperature Pulse Rate 94 H 95 H 102 H Respiratory 14 21 22 Rate Blood Pressure 156/63 156/63 156/63 O2 Sat by Pulse 100 100 100 Oximetry 01/25/21 01/25/21 01/25/21 03:00 03:15 03:19 Temperature 100.8 F H Pulse Rate 94 H 96 H Respiratory 24 14 Rate Blood Pressure 160/81 160/81 O2 Sat by Pulse 100 99 Oximetry 01/25/21 01/25/21 01/25/21 03:31 03:45 04:00 Temperature Pulse Rate 98 H 95 H 96 H Respiratory 24 24 19 Rate Blood Pressure 160/81 160/81 156/83 O2 Sat by Pulse 100 100 100 Oximetry 01/25/21 01/25/21 01/25/21 04:15 04:31 04:45 Temperature Pulse Rate 94 H 94 H 96 H Respiratory 24 24 24 Rate Blood Pressure 156/83 156/83 156/83 O2 Sat by Pulse 99 100 100 Oximetry 01/25/21 01/25/21 01/25/21 05:00 05:15 07:00 Temperature 99.1 F Pulse Rate 94 H 97 H Respiratory 24 16 Rate Blood Pressure 156/84 155/89 O2 Sat by Pulse 100 100 Oximetry 01/25/21 08:00 Temperature Pulse Rate 78 Respiratory Rate Blood Pressure 129/60 O2 Sat by Pulse 98 Oximetry CBC and BMP: 01/25/21 05:16 01/25/21 05:16 ABG, PT/INR, D-dimer: ABG ABG pH 7.515 pH Units (7.350-7.450) H 01/25/21 03:35 ABG pCO2 29.8 mm Hg 01/25/21 03:35 ABG pO2 86.6 mm Hg (80.0-90.0) 01/25/21 03:35 ABG O2 Saturation 97.4 % (95.0-99.0) 01/25/21 03:35 PT/INR, D-dimer PT 15.1 Sec. (12.2-14.9) H 01/22/21 20:25 INR 1.07 (0.87-1.13) 01/22/21 20:25 D-Dimer 7238.51 ng/mlDDU (0-234) H 01/22/21 20:25 Abnormal lab findings: Abnormal Labs 01/22/21 01/22/21 01/22/21 20:25 20:25 20:25 WBC 28.8 H RBC 3.46 L Hgb 9.0 L Hct 29.1 L MCH 26 L RDW 18.2 H Plt Count Lymphocytes % (Manual) 3.0 L Seg Neutrophils # Man 19.0 H Lymphocytes # (Manual) 0.9 L Monocytes # (Manual) 0.9 H Basophils # (Manual) 95.6 H PT 15.1 H D-Dimer 7238.51 H ABG pH ABG pO2 ABG HCO3 ABG O2 Saturation ABG Base Excess ABG Hemoglobin VBG pH Sodium 130 L Potassium 6.2 H* Chloride 91.5 L Carbon Dioxide 19 L BUN 27 H Creatinine Glucose 369 H POC Glucose Lactic Acid Calcium Magnesium AST 156 H ALT 67 H Alkaline Phosphatase Lactate Dehydrogenase C-Reactive Protein NT-Pro-B Natriuret Pep Total Protein 5.7 L Albumin 2.8 L 01/22/21 01/22/21 01/22/21 20:25 20:25 20:25 WBC RBC Hgb Hct MCH RDW Plt Count Lymphocytes % (Manual) Seg Neutrophils # Man Lymphocytes # (Manual) Monocytes # (Manual) Basophils # (Manual) PT D-Dimer ABG pH ABG pO2 ABG HCO3 ABG O2 Saturation ABG Base Excess ABG Hemoglobin VBG pH 7.286 L Sodium Potassium Chloride Carbon Dioxide BUN Creatinine Glucose POC Glucose Lactic Acid 9.70 H* Calcium Magnesium AST ALT Alkaline Phosphatase Lactate Dehydrogenase C-Reactive Protein NT-Pro-B Natriuret Pep 4440 H Total Protein Albumin 01/22/21 01/22/21 01/22/21 20:25 21:45 23:47 WBC RBC Hgb Hct MCH RDW Plt Count Lymphocytes % (Manual) Seg Neutrophils # Man Lymphocytes # (Manual) Monocytes # (Manual) Basophils # (Manual) PT D-Dimer ABG pH 7.543 H ABG pO2 183.4 H ABG HCO3 17.0 L ABG O2 Saturation 99.3 H ABG Base Excess -4.1 L ABG Hemoglobin 10.0 L VBG pH Sodium Potassium Chloride Carbon Dioxide BUN Creatinine Glucose POC Glucose 349 H Lactic Acid Calcium Magnesium AST ALT Alkaline Phosphatase Lactate Dehydrogenase 489 H C-Reactive Protein 2.40 H NT-Pro-B Natriuret Pep Total Protein Albumin 01/23/21 01/23/21 01/23/21 01:10 01:49 04:00 WBC RBC Hgb Hct MCH RDW Plt Count Lymphocytes % (Manual) Seg Neutrophils # Man Lymphocytes # (Manual) Monocytes # (Manual) Basophils # (Manual) PT D-Dimer ABG pH ABG pO2 ABG HCO3 ABG O2 Saturation ABG Base Excess ABG Hemoglobin VBG pH Sodium Potassium Chloride Carbon Dioxide BUN Creatinine Glucose POC Glucose 323 H Lactic Acid 7.10 H* 9.10 H* Calcium Magnesium AST ALT Alkaline Phosphatase Lactate Dehydrogenase C-Reactive Protein NT-Pro-B Natriuret Pep Total Protein Albumin 01/23/21 01/23/21 01/23/21 05:39 07:58 07:58 WBC 25.2 H RBC Hgb Hct MCH 25 L RDW 18.0 H Plt Count 464 H Lymphocytes % (Manual) Seg Neutrophils # Man Lymphocytes # (Manual) Monocytes # (Manual) Basophils # (Manual) PT D-Dimer ABG pH ABG pO2 ABG HCO3 ABG O2 Saturation ABG Base Excess ABG Hemoglobin VBG pH Sodium 133 L Potassium 5.7 H Chloride 95.4 L Carbon Dioxide 18 L BUN 24 H Creatinine Glucose 291 H POC Glucose 316 H Lactic Acid Calcium Magnesium AST 116 H ALT 66 H Alkaline Phosphatase 136 H Lactate Dehydrogenase C-Reactive Protein NT-Pro-B Natriuret Pep Total Protein Albumin 3.2 L 01/23/21 01/23/21 01/23/21 07:58 10:47 11:57 WBC RBC Hgb Hct MCH RDW Plt Count Lymphocytes % (Manual) Seg Neutrophils # Man Lymphocytes # (Manual) Monocytes # (Manual) Basophils # (Manual) PT D-Dimer ABG pH ABG pO2 ABG HCO3 ABG O2 Saturation ABG Base Excess ABG Hemoglobin VBG pH Sodium Potassium Chloride Carbon Dioxide BUN Creatinine Glucose POC Glucose 238 H Lactic Acid 8.20 H* 8.00 H* Calcium Magnesium AST ALT Alkaline Phosphatase Lactate Dehydrogenase C-Reactive Protein NT-Pro-B Natriuret Pep Total Protein Albumin 01/23/21 01/24/21 01/24/21 Unknown 00:10 04:00 WBC 18.2 H RBC Hgb 9.7 L Hct 30.2 L MCH 26 L RDW 18.5 H Plt Count 451 H Lymphocytes % (Manual) Seg Neutrophils # Man Lymphocytes # (Manual) Monocytes # (Manual) Basophils # (Manual) PT D-Dimer ABG pH 7.544 H ABG pO2 76.4 L ABG HCO3 ABG O2 Saturation ABG Base Excess ABG Hemoglobin 9.1 L VBG pH Sodium Potassium Chloride Carbon Dioxide BUN Creatinine Glucose POC Glucose 285 H Lactic Acid Calcium Magnesium AST ALT Alkaline Phosphatase Lactate Dehydrogenase C-Reactive Protein NT-Pro-B Natriuret Pep Total Protein Albumin 01/24/21 01/24/21 01/24/21 05:30 09:21 12:07 WBC RBC Hgb Hct MCH RDW Plt Count Lymphocytes % (Manual) Seg Neutrophils # Man Lymphocytes # (Manual) Monocytes # (Manual) Basophils # (Manual) PT D-Dimer ABG pH ABG pO2 ABG HCO3 ABG O2 Saturation ABG Base Excess ABG Hemoglobin VBG pH Sodium Potassium Chloride Carbon Dioxide BUN Creatinine Glucose POC Glucose 281 H 206 H 177 H Lactic Acid Calcium Magnesium AST ALT Alkaline Phosphatase Lactate Dehydrogenase C-Reactive Protein NT-Pro-B Natriuret Pep Total Protein Albumin 01/24/21 01/24/21 01/24/21 15:56 18:15 23:31 WBC RBC Hgb Hct MCH RDW Plt Count Lymphocytes % (Manual) Seg Neutrophils # Man Lymphocytes # (Manual) Monocytes # (Manual) Basophils # (Manual) PT D-Dimer ABG pH ABG pO2 ABG HCO3 ABG O2 Saturation ABG Base Excess ABG Hemoglobin VBG pH Sodium 134 L Potassium 3.0 L 3.0 L Chloride 97.4 L Carbon Dioxide BUN Creatinine 0.5 L Glucose 152 H POC Glucose 133 H Lactic Acid Calcium 7.5 L Magnesium AST ALT Alkaline Phosphatase Lactate Dehydrogenase C-Reactive Protein NT-Pro-B Natriuret Pep Total Protein 5.8 L Albumin 2.8 L 01/24/21 01/24/21 01/24/21 23:51 Unknown Unknown WBC 18.4 H RBC Hgb 9.1 L Hct 29.6 L MCH 25 L RDW 17.8 H Plt Count Lymphocytes % (Manual) Seg Neutrophils # Man Lymphocytes # (Manual) Monocytes # (Manual) Basophils # (Manual) PT D-Dimer ABG pH ABG pO2 ABG HCO3 ABG O2 Saturation ABG Base Excess ABG Hemoglobin VBG pH Sodium 135 L Potassium 2.8 L* D Chloride 97.1 L Carbon Dioxide 21 L BUN Creatinine Glucose 306 H POC Glucose 146 H Lactic Acid Calcium 7.6 L Magnesium 1.00 L AST ALT Alkaline Phosphatase Lactate Dehydrogenase C-Reactive Protein NT-Pro-B Natriuret Pep Total Protein 5.8 L Albumin 2.8 L 01/25/21 01/25/21 01/25/21 03:35 05:16 05:16 WBC 17.3 H RBC 3.40 L Hgb 8.7 L Hct 27.1 L MCH 26 L RDW 18.0 H Plt Count Lymphocytes % (Manual) Seg Neutrophils # Man Lymphocytes # (Manual) Monocytes # (Manual) Basophils # (Manual) PT D-Dimer ABG pH 7.515 H ABG pO2 ABG HCO3 ABG O2 Saturation ABG Base Excess ABG Hemoglobin 8.6 L VBG pH Sodium 133 L Potassium 3.3 L Chloride 97.8 L Carbon Dioxide BUN Creatinine 0.5 L Glucose 134 H POC Glucose Lactic Acid Calcium 7.5 L Magnesium AST ALT Alkaline Phosphatase Lactate Dehydrogenase C-Reactive Protein NT-Pro-B Natriuret Pep Total Protein 5.7 L Albumin 2.9 L 01/25/21 05:29 WBC RBC Hgb Hct MCH RDW Plt Count Lymphocytes % (Manual) Seg Neutrophils # Man Lymphocytes # (Manual) Monocytes # (Manual) Basophils # (Manual) PT D-Dimer ABG pH ABG pO2 ABG HCO3 ABG O2 Saturation ABG Base Excess ABG Hemoglobin VBG pH Sodium Potassium Chloride Carbon Dioxide BUN Creatinine Glucose POC Glucose 137 H Lactic Acid Calcium Magnesium AST ALT Alkaline Phosphatase Lactate Dehydrogenase C-Reactive Protein NT-Pro-B Natriuret Pep Total Protein Albumin Allied health notes reviewed: nursing
[2021-01-25] MEDS ORDERED: GLYCOPYRROLATE 0.4 MG/2 ML INJ IV PRN (11:04)
[2021-01-25] MEDS ORDERED: MORPHINE 2 MG/1 ML INJ IV PRN (11:04)
[2021-01-25] MEDS ORDERED: LORazepam 2 MG/ML VIAL IV PRN (11:04)
--- NOTE | 2021-01-25 11:55 | Progress Note ---
Assessment and Plan 76-year-old female with a past medical history of hypertension and diabetes who was brought to the ED from home due to cardiac arrest Cardiac Arrest * Patient currently intubated and sedated requiring pressors * EKG shows afib 69, nonspecific T abnormalities, no Acute ischemic changes. Troponins negative x 2 * Telemetry Reviewed: patient sinus 80s on monitor Sepsis * ID following * COVID PCR negative Acute hypoxic respiratory failure * Patient intubated and sedated Hyperkalemia * Management per primary team Plan: Per documentation family discussing end of life care. Will sign off Patient seen in conjunction with Dr. Sapp who agrees with this plan of care - Patient Problems (1) Acute metabolic encephalopathy Current Visit: Yes Status: Acute (2) Acute respiratory failure Current Visit: Yes Status: Acute Qualifiers: Qualified Code(s): J96.00 - Acute respiratory failure, unspecified whether with hypoxia or hypercapnia (3) Cardiac arrest Current Visit: Yes Status: Acute (4) Hyperkalemia Current Visit: Yes Status: Acute (5) Hypertension Current Visit: No Status: Chronic Qualifiers: Hypertension type: primary hypertension Qualified Code(s): I10 - Essential (primary) hypertension (6) Leukocytosis Current Visit: Yes Status: Acute Qualifiers: Leukocytosis type: unspecified Qualified Code(s): D72.829 - Elevated white blood cell count, unspecified (7) Sepsis Current Visit: Yes Status: Acute (8) Decubitus ulcer, buttock Current Visit: Yes Status: Chronic (9) Anoxic brain injury Current Visit: Yes Status: Suspected Subjective Date of service: 01/25/21 Principal diagnosis: PEA Arrest Interval history: Patient remains intubated Sinus 81 on monitor Objective Vital Signs Temp Pulse Resp BP Pulse Ox 01/25/21 08:00 78 129/60 98 01/25/21 07:00 99.1 F 01/25/21 05:15 97 H 16 155/89 100 01/25/21 05:00 94 H 24 156/84 100 01/25/21 04:45 96 H 24 156/83 100 01/25/21 04:31 94 H 24 156/83 100 01/25/21 04:15 94 H 24 156/83 99 01/25/21 04:00 96 H 19 156/83 100 01/25/21 03:45 95 H 24 160/81 100 01/25/21 03:31 98 H 24 160/81 100 01/25/21 03:19 100.8 F H 01/25/21 03:15 96 H 14 160/81 99 01/25/21 03:00 94 H 24 160/81 100 01/25/21 02:45 102 H 22 156/63 100 01/25/21 02:31 95 H 21 156/63 100 01/25/21 02:15 94 H 14 156/63 100 01/25/21 02:00 96 H 14 156/63 100 01/25/21 01:45 96 H 23 147/69 100 01/25/21 01:31 93 H 18 147/69 100 01/25/21 01:15 94 H 24 147/69 100 01/25/21 01:00 90 24 147/69 99 01/25/21 00:45 92 H 11 L 151/71 100 01/25/21 00:36 99 01/25/21 00:31 100 H 13 151/71 100 01/25/21 00:15 96 H 12 151/71 100 01/25/21 00:10 92 H 100 01/25/21 00:00 99.4 F 93 H 24 151/71 100 01/24/21 23:50 104 H 100 01/24/21 23:45 92 H 14 99 01/24/21 23:43 95 H 15 100 01/24/21 23:28 96 H 14 99 01/24/21 22:30 94 H 18 155/74 100 01/24/21 22:20 142 H 15 155/74 100 01/24/21 22:11 103 H 17 155/74 97 01/24/21 22:01 88 24 147/75 98 01/24/21 21:51 87 24 147/75 99 01/24/21 21:41 87 24 146/65 98 01/24/21 21:31 87 24 156/79 99 01/24/21 21:21 85 24 156/79 98 01/24/21 21:11 86 24 146/65 99 01/24/21 21:01 85 24 151/71 99 01/24/21 20:51 78 24 151/71 99 01/24/21 20:41 76 24 147/69 99 01/24/21 20:36 99 01/24/21 20:31 83 24 152/69 99 01/24/21 20:21 84 24 152/69 99 01/24/21 20:15 75 151/71 99 01/24/21 20:11 75 24 145/68 99 01/24/21 20:02 99 01/24/21 20:01 83 24 142/67 99 01/24/21 19:51 77 24 142/67 98 01/24/21 19:41 89 24 149/65 98 01/24/21 19:31 89 23 140/61 98 01/24/21 19:21 86 23 140/61 97 01/24/21 19:11 84 24 149/65 97 01/24/21 19:01 91 H 24 149/67 97 01/24/21 18:51 85 25 H 149/67 99 01/24/21 18:41 78 24 137/56 98 01/24/21 18:31 81 24 148/66 98 01/24/21 18:21 84 24 148/66 98 01/24/21 18:11 78 24 155/75 98 01/24/21 18:01 80 24 98 01/24/21 17:52 92 H 24 100 01/24/21 17:30 91 H 24 144/67 97 01/24/21 17:16 85 24 144/67 98 01/24/21 17:00 87 24 129/62 99 01/24/21 16:46 78 24 135/62 97 01/24/21 16:40 86 152/70 92 01/24/21 16:30 77 24 126/61 98 01/24/21 16:16 75 25 H 128/59 97 01/24/21 16:00 76 24 146/68 98 01/24/21 15:46 90 24 143/68 97 01/24/21 15:30 89 24 131/61 97 01/24/21 15:16 79 24 134/61 98 01/24/21 15:00 80 24 126/55 98 01/24/21 14:46 79 24 140/64 97 01/24/21 14:30 89 20 143/67 98 01/24/21 14:16 81 26 H 130/59 97 01/24/21 14:00 80 23 136/65 96 01/24/21 13:46 82 24 126/57 97 01/24/21 13:30 79 24 141/62 96 01/24/21 13:16 88 24 140/64 95 01/24/21 13:00 78 24 136/61 96 01/24/21 12:50 79 137/66 96 01/24/21 12:46 84 24 137/66 96 01/24/21 12:30 88 24 143/66 97 01/24/21 12:16 84 24 119/54 97 01/24/21 12:00 79 24 121/56 97 - Physical Examination General: Other (intubated/sedated) HEENT: Positive: Normocephaly, Mucus Membranes Dry Neck: Positive: trachea midline. Negative: JVD/HJR Cardiac: Positive: Reg Rate and Rhythm Lungs: Positive: Ventilated Respirations Neuro: Positive: Other (dilated pupils, unresponsive) Abdomen: Positive: Soft Skin: Negative: Rash Extremities: Present: lower extr. pulses. Absent: edema - Labs and Meds Cardiac Enzymes 01/24/21 01/25/21 Range/Units 23:31 05:16 AST 29 27 (5-40) units/L Coagulation 01/25/21 Range/Units 05:16 APTT 26.1 (24.2-36.6) Sec. CBC 01/25/21 Range/Units 05:16 WBC 17.3 H (4.5-11.0) K/mm3 RBC 3.40 L (3.65-5.03) M/mm3 Hgb 8.7 L (10.1-14.3) gm/dl Hct 27.1 L (30.3-42.9) % Plt Count 330 (140-440) K/mm3 Comprehensive Metabolic Panel 01/24/21 01/24/21 01/25/21 Range/Units 15:56 23:31 05:16 Sodium 134 L 133 L (137-145) mmol/L Potassium 3.0 L 3.0 L 3.3 L (3.6-5.0) mmol/L Chloride 97.4 L 97.8 L (98-107) mmol/L Carbon Dioxide 22 22 (22-30) mmol/L BUN 12 11 (7-17) mg/dL Creatinine 0.5 L 0.5 L (0.6-1.2) mg/dL Glucose 152 H 134 H (65-100) mg/dL Calcium 7.5 L 7.5 L (8.4-10.2) mg/dL AST 29 27 (5-40) units/L ALT 26 23 (7-56) units/L Alkaline Phosphatase 90 86 (35-129) units/L Total Protein 5.8 L 5.7 L (6.3-8.2) g/dL Albumin 2.8 L 2.9 L (3.9-5) g/dL - Imaging and Cardiology EKG: report reviewed Echo: report reviewed - Telemetry EKG Rhythm: Sinus Rhythm - EKG Sinus rhythms and dysrhythmias: sinus rhythm Repolarization changes or abnormalities: nonspecific abnormality, ST segment, and/or T wave - Allied health notes Allied health notes reviewed: nursing
--- NOTE | 2021-01-25 17:06 | Discharge Summary ---
<MRAICEL CULVERRoman - Last Filed: 01/25/21 18:12> Providers - Providers Date of Admission: 01/23/21 00:15 Date of discharge: 01/25/21 Attending physician: SHIRA ONTIVEROS MD 01/22/21 19:43 Consult to Dietitian/Nutrition [CONS] Routine Physician Instructions: Reason For Exam: Reason for Consult: Evaluate nutritional intake 01/22/21 23:49 Consult to Physician [CONS] Routine Comment: Consulting Provider: GILDARDO TELLO Physician Instructions: Reason For Exam: ICU Management 01/23/21 00:26 Consult to Dietitian/Nutrition [CONS] Routine Physician Instructions: Reason For Exam: Reason for Consult: Diet education Consult to Physician [CONS] Routine Comment: Consulting Provider: PAYAL DELACRUZ Physician Instructions: Reason For Exam: Cardiac arrest Consult to Physician [CONS] Routine Comment: Consulting Provider: MARQUEZ JENNINGS Physician Instructions: Reason For Exam: Suspected Covid Primary care physician: CREATIVE ASSISTANT Hospitalization Condition: Poor Hospital course: 76-year-old female with past medical history of hypertension, diabetes, not vaccinated against COVID-19 was brought to the emergency room from home in cardiac arrest. Apparently the patient has been complaining of some generalized abdominal pain over the past 2 days. This afternoon she had told her daughter that her abdominal had improved. However, this evening she told her aide that she was having shortness of breath and they called for EMS. In the meantime a gave her a sublingual nitroglycerin. When EMS arrived the patient suddenly collapsed and went into cardiac arrest. They intubated the patient and began providing bag valve ventilation and chest compressions as part of ACLS protocol. She had 4 rounds of epinephrine. She was mostly in PEA but had one transient episode of V. fib for which she received a defibrillation. EMS also said that the patient had a very brief ROSC just before arriving to the emergency department. On 01/24 patient had no neurological response off of sedation. diltiazem gtt being weaned off currently as HR improved. Patient had apnea when placed on CPAP this AM. Family at bedside and elected to de-escalate care. Patient was extubate this morning. Family eleceted hospice care. Patient accepted to [facility]. Patient transferred to hospice. Assessment and Plan: Neuro: Acute encephalopathy - significant downtime from cardiac arrest. - CT brain on admission negative for acute findings. - currently off of sedation and still not following commands - Family declined further testing and elected for deescalation of care and eventfully hospice Cardiac: PEA, Vfib, Cardiac Arrrest s/p ROSC, atrial fibrillation with RVR - unclear what inciting event leading to arrest was - ROS achieved after chest compressions, defibrillation and 4 rounds of epinephrine - s/p vaspressor support - on diltiazem gtt, weaned off. - troponin non elevated - cardiology is following Pulm: Acute Respiratory Failure with Hypoxia, bibasilar pneumonia noted on CTAP - intubated on admit but terminally extubated today - MV management per [facility] GI- Transaminitis - some question of shock liver Renal- hypokalemia, nonobtructing renal calculi - electrolyte replacement protocol - CTAP shows non obstructing renal calculi ID- Bilateral pneumonia - SARS CoV2 PCR: negative - 01/22/2021 blood culture: no growth - MRSA swab pending. - s/p empiric cefepime and vancomycin. - ID following Heme-Leukocytosis - Monitor H/H, plt, wbc ct on cbc Endo - accuchecks q4hr Disposition: 51 HOSPICE/MEDICAL FACILITY Final Discharge Diagnosis (Prints w/discharge instructions): s/p cardiac arrest, acute hypoxemic respiratory failure, Acute encephalopathy, PEA, Vfib, Cardiac Arrrest s/p ROSC, atrial fibrillation with RVR, Acute Respiratory Failure with Hypoxia, bibasilar pneumonia noted on CTAP, Transaminitis, hypokalemia, nonobtructing renal calculi, Bilateral pneumonia, leukocytosis Time spent for discharge: 30 Core Measure Documentation - Palliative Care Palliative Care/ Comfort Measures: Hospice Care Exam - Constitutional Vitals: Temp Pulse Resp BP Pulse Ox 99.4 F 96 H 20 140/65 91 01/25/21 11:00 01/25/21 13:30 01/25/21 13:30 01/25/21 13:30 01/25/21 13:30 General appearance: Present: other (No acute distress noted) - EENT Eyes: Absent: PERRL, EOM intact ENT: clear oral mucosa - Neck Neck: Present: normal ROM - Respiratory Respiratory effort: normal Respiratory: bilateral: diminished - Cardiovascular Rhythm: regular Heart Sounds: Present: S1 & S2. Absent: systolic murmur, diastolic murmur - Extremities Extremities: no ischemia, pulses intact, pulses symmetrical, No edema, normal temperature, normal color Peripheral Pulses: within normal limits - Abdominal General gastrointestinal: Present: soft, non-tender, non-distended, normal bowel sounds - Integumentary Integumentary: Present: warm, dry - Musculoskeletal Musculoskeletal: other - Psychiatric Psychiatric: other - Neurologic Neurologic: other (Intact cough/gag, pupils very sluggish, decorticate positioning to painful stimuli) - Allied Health Allied health notes reviewed: nursing, RT, social work Plan Activity: advance as tolerated Diet: advance as tolerated Special Instructions: record daily BP diary Care Plan Goals: Transfer to hospice Follow up with: PRIMARY CAREMD [Primary Care Provider] - 3-5 Days <SHIRA ONTIVEROS - Last Filed: 01/27/21 12:40> Providers - Providers Date of Admission: 01/23/21 00:15 Attending physician: SHIRA ONTIVEROS MD 01/22/21 19:43 Consult to Dietitian/Nutrition [CONS] Routine Physician Instructions: Reason For Exam: Reason for Consult: Evaluate nutritional intake 01/22/21 23:49 Consult to Physician [CONS] Routine Comment: Consulting Provider: GILDARDO TELLO Physician Instructions: Reason For Exam: ICU Management 01/23/21 00:26 Consult to Dietitian/Nutrition [CONS] Routine Physician Instructions: Reason For Exam: Reason for Consult: Diet education Consult to Physician [CONS] Routine Comment: Consulting Provider: PAYAL DELACRUZ Physician Instructions: Reason For Exam: Cardiac arrest Consult to Physician [CONS] Routine Comment: Consulting Provider: MARQUEZ JENNINGS Physician Instructions: Reason For Exam: Suspected Covid Primary care physician: CREATIVE ASSISTANT Hospitalization Hospital course: I saw and evaluated the patient. Discussed with the nurse practitioner and agree with their findings and plan as documented in this note. Exam - Constitutional Vitals: Temp Pulse Resp BP Pulse Ox 99.6 F 121 H 24 137/77 96 01/25/21 19:48 01/25/21 20:00 01/25/21 20:00 01/25/21 20:00 01/25/21 20:00
[2021-01-25 20:48] VITALS: BP 137/77
== END 2021-01-25 21:38 | disposition hospice, inpatient (51) | DRG 871 ==
LOC: ED 19:20 → CC1 01-23 00:15
PROVIDERS: ADMIT Hospitalist; ATTEND Internal Medicine
PROC: 5A1945Z Respiratory Ventilation, 24-96 Consecutive Hours (ICD-10-PCS; principal; 2021-01-22)
PROC: 06HY33Z Insertion of Infusion Device into Lower Vein, Percutaneous Approach (ICD-10-PCS; 2021-01-23)
PROC: 4A033R1 Measurement of Arterial Saturation, Peripheral, Percutaneous Approach (ICD-10-PCS; 2021-01-24)
DX: A41.9 Sepsis, unspecified organism (principal); I46.9 Cardiac arrest, cause unspecified; G93.41 Metabolic encephalopathy; J18.9 Pneumonia, unspecified organism; J96.01 Acute respiratory failure with hypoxia; I47.1 Supraventricular tachycardia; G93.1 Anoxic brain damage, not elsewhere classified; E11.65 Type 2 diabetes mellitus with hyperglycemia; Z20.822 Contact with and (suspected) exposure to COVID-19; I10 Essential (primary) hypertension; I25.10 Atherosclerotic heart disease of native coronary artery without angina pectoris; M19.90 Unspecified osteoarthritis, unspecified site; E11.40 Type 2 diabetes mellitus with diabetic neuropathy, unspecified; E87.5 Hyperkalemia; E87.6 Hypokalemia; E83.42 Hypomagnesemia; D64.9 Anemia, unspecified; L89.329 Pressure ulcer of left buttock, unspecified stage; L89.319 Pressure ulcer of right buttock, unspecified stage; N20.0 Calculus of kidney; Z79.899 Other long term (current) drug therapy; Z79.84 Long term (current) use of oral hypoglycemic drugs; Z88.6 Allergy status to analgesic agent; Z88.0 Allergy status to penicillin; Z88.8 Allergy status to other drugs, medicaments and biological substances
CPT/HCPCS: 36415; 36600; 70450; 71045; 74018; 74176; 80053; 80320; 82140; 82728; 82803; 82805; 82962; 83615; 83735; 83880; 84100; 84132; 84145; 84443; 84484; 85007; 85025; 85027; 85379; 85610; 85730; 86140; 87040; 93005; 93306; 94002; 94003; 94640; 94644; 99292; G0378; G0480; J0171; J0282; J0461; J0610; J0692; J1100; J1170; J1644; J1815; J1956; J2060; J2250; J2405; J3370; J3475; J3480; J7030; J7040; J7050; J7060; U0003